=== PATIENT | female | born 1930 | race Caucasian/White ===

== ENCOUNTER 2017-11-17 17:58 | Inpatient (IN) | payer MEDICARE, OTHER ==
[2017-11-17] MEDS ORDERED: Albuterol/Ipratropium 3.0-0.5 MG/3 ML Neb Soln NEB ONE (18:08)
[2017-11-17] MEDS ORDERED: Acetaminophen 325 MG Tab PO ONE (18:08)
--- NOTE | 2017-11-17 18:09 | EDM.PDOC ---
<Valarie De Leon A - Last Filed: 11/17/17 22:45> ED HPI GENERAL MEDICAL PROBLEM - General Chief Complaint: Respiratory Problem Stated Complaint: [facility] Time Seen by Provider: 11/17/17 18:00 - Related Data Allergies Allergy/AdvReac Type Severity Reaction Status Date / Time grass pollen Allergy Not Listed Verified 11/17/17 22:01 mold Allergy Not Listed Verified 11/17/17 22:01 Home Meds: Home Meds Acetaminophen [Tylenol] 325 mg PO ASDIRECTED PRN 11/17/17 [History] Albuterol Sulfate 2.5 mg IH TID 11/17/17 [History] Azithromycin [IJD: Azithromycin] 250 mg PO ASDIRECTED 11/17/17 [History] Calcium Carbonate/Vitamin D3 [Calcium 600 + Vit D Tablet] 1 each PO BID [History] Denosumab [Prolia] 60 mg SUBCUT Q180D 11/17/17 [History] Ferrous Sulfate 325 mg PO DAILY 11/17/17 [History] Fish Oil/[place]-3 Fatty Acids [Fish Oil 1,000 MG] 1 each PO DAILY 11/17/17 [ History] Hydrocortisone [Preparation H] 1 applic TP TID PRN 11/17/17 [History] I-Darnell With Lutein. 1 cap PO DAILY 11/17/17 [History] L.acidop,Vasquez,Lac,Rha/B.lac,Deon [Advanced Probiotic Capsule] 1 cap PO DAILY 11/17 [History] Levothyroxine [Synthroid] 88 mcg PO DAILY 11/17/17 [History] Lidocaine [Anecream] 1 applic TP Q6H PRN 11/17/17 [History] Mineral Oil/Petrolatum,White [Advanced Eye Relief Opth Oint] 1 applic EYEBOTH BEDTIME PRN 11/17/17 [History] Multivitamin with Minerals [Multivitamins with Minerals] 1 each PO DAILY [History] Olopatadine [Patanol 0.1% Ophth Soln] 1 drop EYEBOTH BID PRN 11/17/17 [History] Polyethylene Glycol 3350 [MiraLAX] 17 gm PO DAILY 11/17/17 [History] Primidone 50 mg PO DAILY 11/17/17 [History] Primidone 250 mg PO DAILY 11/17/17 [History] Propylene Glycol/Peg 400 [Systane 0.3-0.4% Eye Drops] 1 drop EYEBOTH TID [History] Sertraline [Zoloft] 25 mg PO DAILY 11/17/17 [History] amLODIPine Besylate [Norvasc] 2.5 mg PO DAILY 11/17/17 [History] guaiFENesin [Mucinex] 600 mg PO BID 11/17/17 [History] Course - Vital Signs Last Recorded V/S: Last Vital Signs Temp 37.3 C 11/18/17 07:29 Pulse 81 11/18/17 12:04 Resp 24 H 11/18/17 12:04 BP 123/60 11/18/17 12:04 Pulse Ox 100 11/18/17 12:04 - Orders/Labs/Meds Orders: Active Orders 24 hr Category Date Time Status Patient Status [ADT] Routine ADT 11/17/17 20:58 Active Antiembolic Devices [RC] BID Care 11/17/17 20:34 Active Height and Weight [RC] 04 Care 11/17/17 20:32 Active Intake and Output [RC] 04,16 Care 11/17/17 20:33 Active Up With Assistance [RC] ASDIRECTED Care 11/17/17 20:32 Active Up ad Camille [RC] ASDIRECTED Care 11/17/17 20:32 Active VTE/DVT Education [RC] DAILY Care 11/17/17 20:32 Active Vital Signs [RC] Q4HR Care 11/17/17 20:32 Active Consult to Case Management [CONS] Routine Cons 11/17/17 20:35 Active Consult to Manager Recruiting [CONS] Routine Cons 11/17/17 20:35 Active Consult to Spiritual Care [CONS] Routine Cons 11/17/17 20:35 Active OT Evaluation and Treatment [CONS] Routine Cons 11/17/17 20:35 Active PT Evaluation and Treatment [CONS] Routine Cons 11/17/17 20:35 Active Respiratory Care Assess and Treatment [CONS] Routine Cons 11/17/17 20:35 Active Chest 1V Frontal [CR] AM Exams 11/19/17 05:11 Ordered BASIC METABOLIC PANEL,BMP [CHEM] AM Lab 11/19/17 05:11 Ordered BASIC METABOLIC PANEL,BMP [CHEM] AM Lab 11/20/17 05:11 Ordered BASIC METABOLIC PANEL,BMP [CHEM] AM Lab 11/21/17 05:11 Ordered C-REACTIVE PROTEIN [CHEM] AM Lab 11/19/17 05:11 Ordered C-REACTIVE PROTEIN [CHEM] AM Lab 11/20/17 05:11 Ordered C-REACTIVE PROTEIN [CHEM] AM Lab 11/21/17 05:11 Ordered CBC WITH AUTO DIFF [HEME] AM Lab 11/19/17 05:11 Ordered CBC WITH AUTO DIFF [HEME] AM Lab 11/20/17 05:11 Ordered CBC WITH AUTO DIFF [HEME] AM Lab 11/21/17 05:11 Ordered MAGNESIUM [CHEM] AM Lab 11/19/17 05:11 Ordered MAGNESIUM [CHEM] AM Lab 11/20/17 05:11 Ordered MAGNESIUM [CHEM] AM Lab 11/21/17 05:11 Ordered Acetaminophen [Tylenol] Med 11/17/17 20:32 Active 650 mg PO Q4H PRN Acetaminophen/HYDROcodone [[place] 325-5 MG] Med 11/17/17 20:32 Active 1 tab PO Q4H PRN Albuterol/Ipratropium [DuoNeb 3.0-0.5 MG/3 ML] Med 11/17/17 20:32 Active 3 ml NEB Q4H PRN Bisacodyl [Dulcolax] Med 11/17/17 20:32 Active 5 mg PO DAILY PRN Calcium Carbonate/Vitamin D3 [Calcium Carbonate/Vitamin Med 11/17/17 21:00 Active D 600 MG-200 Unit] 1 tab PO BID Docusate Sodium [Colace] Med 11/17/17 20:32 Active 100 mg PO BID PRN Docusate Sodium/Sennosides [Senna Plus] Med 11/17/17 20:32 Active 1 tab PO BID PRN Ferrous Sulfate Med 11/18/17 09:00 Active 325 mg PO DAILY Fish Oil/[place]-3 Fatty Acids [Fish Oil] Med 11/18/17 09:00 Active 1 gm PO DAILY Hydrocortisone [Hydrocortisone 1% Crm] Med 11/17/17 20:30 Active 0 gm TOP TID PRN Hypromellose [Isopto Tears 0.5% Ophth Soln] Med 11/17/17 21:00 Active 0 ml EYEBOTH TID LORazepam [Ativan] Med 11/17/17 20:32 Active 0.25 mg IV Q6H PRN LORazepam [Ativan] Med 11/17/17 20:29 Active 2 mg IVPUSH Q4H PRN Lanolin/Min Oil/Petrolatum [Artificial Tears] Med 11/17/17 20:30 Active 0 gm EYEBOTH BEDTIME PRN Levothyroxine [Synthroid] Med 11/18/17 06:00 Active 88 mcg PO ACBRK Lidocaine 4% [LMX 4 Cream with Tegaderm] Med 11/17/17 20:30 Active 1 each TOP Q6H PRN Magnesium Rep Pharmacy to Dose [Pharmacy to Dose - Med 11/17/17 20:30 Active Magnesium Replacement] 0 dose .XX ASDIRECTED PRN Metoprolol Tartrate [Lopressor] Med 11/17/17 20:29 Active 5 mg IVPUSH Q4H PRN Multivitamins,Therapeutic [Thera] Med 11/18/17 09:00 Active 1 each PO DAILY Multivitamins/Min/FA/Lut/Zeax [ICaps MV] Med 11/18/17 09:00 Active 1 tab PO DAILY Ondansetron [Zofran] Med 11/17/17 20:32 Active 4 mg IV Q6H PRN Patient's Own Medication [Ptom] Med 11/17/17 20:30 Active 0 each EYEBOTH BID PRN Polyethylene Glycol 3350 [MiraLAX] Med 11/18/17 09:00 Active 17 gm PO DAILY Potassium Rep Pharmacy to Dose [Pharmacy to Dose - Med 11/17/17 20:30 Active Potassium Replacement] 0 dose .XX ASDIRECTED PRN Primidone [Mysoline] Med 11/18/17 09:00 Active 250 mg PO DAILY Primidone [Mysoline] Med 11/18/17 09:00 Active 50 mg PO DAILY Promethazine [Phenergan] 6.25 mg Med 11/17/17 20:32 Active Sodium Chloride 0.9% [Normal Saline] 50 ml IV Q6H Saccharomyces Boulardii [Florastor] Med 11/18/17 09:00 Active 250 mg PO BID Temazepam [Restoril] Med 11/17/17 20:32 Active 7.5 mg PO BEDTIME PRN amLODIPine [Norvasc] Med 11/18/17 09:00 Active 2.5 mg PO DAILY guaiFENesin [Mucinex] Med 11/18/17 09:00 Active 600 mg PO BID hydrALAZINE [Apresoline] Med 11/17/17 20:29 Active 10 mg IVPUSH Q4H PRN Sequential Compression Device [OM.PC] Per Unit Routine Oth 11/17/17 20:33 Ordered Resuscitation Status Routine Resus Stat 11/17/17 20:32 Ordered Medication Orders Acetaminophen (Tylenol) 650 mg PO Q4H PRN PRN Reason: Pain (Mild 1-3)/fever Hydrocodone Bitart/Acetaminophen ([place] 325-5 Mg) 1 tab PO Q4H PRN PRN Reason: Pain (moderate 4-6) Albuterol/Ipratropium (Duoneb 3.0-0.5 Mg/3 Ml) 3 ml NEB Q4H PRN PRN Reason: Shortness Of Breath/wheezing Amlodipine Besylate (Norvasc) 2.5 mg PO DAILY [facility] Last Admin: 11/18/17 09:36 Dose: 2.5 mg Artificial Tears (Artificial Tears) 0 gm EYEBOTH BEDTIME PRN PRN Reason: Dry Eyes Artificial Tears (Isopto Tears 0.5% Ophth Soln) 0 ml EYEBOTH TID [facility] Last Admin: 11/18/17 19:41 Dose: Admin: 11/18/17 15:24 Dose: 1 drop Admin: 11/18/17 09:36 Dose: 1 drop Bisacodyl (Dulcolax) 5 mg PO DAILY PRN PRN Reason: Constipation Calcium Carbonate (Calcium Carbonate/Vitamin D 600 Mg-200 Unit) 1 tab PO BID [facility] Last Admin: 11/18/17 09:36 Dose: 1 tab Admin: 11/17/17 22:39 Dose: Not Given Docusate Sodium (Colace) 100 mg PO BID PRN PRN Reason: Constipation Ferrous Sulfate (Ferrous Sulfate) 325 mg PO DAILY [facility] Last Admin: 11/18/17 09:36 Dose: 325 mg Fish Oil (Fish Oil) 1 gm PO DAILY [facility] Last Admin: 11/18/17 09:36 Dose: 1 gm Guaifenesin (Mucinex) 600 mg PO BID [facility] Last Admin: 11/18/17 09:37 Dose: 600 mg Guaifenesin/Phenylephrine HCl (Robitussin Dm) 5 ml PO Q4H PRN PRN Reason: Cough Hydralazine HCl (Apresoline) 10 mg IVPUSH Q4H PRN PRN Reason: Hypertension Hydrocortisone (Hydrocortisone 1% Crm) 0 gm TOP TID PRN PRN Reason: Hemorrhoids Hydromorphone HCl (Dilaudid) 0.25 mg IVPUSH Q2H PRN PRN Reason: Pain (severe 7-10) Promethazine HCl 6.25 mg/ (Sodium Chloride) 50.25 mls @ 100 mls/hr IV Q6H PRN PRN Reason: Nausea/Vomiting Sodium Chloride (Normal Saline) 1,000 mls @ 15 mls/hr IV ASDIRECTED [facility] Stop: 11/22/17 16:13 Levothyroxine Sodium (Synthroid) 88 mcg PO ACBRK [facility] Last Admin: 11/18/17 06:01 Dose: 88 mcg Lidocaine HCl (Lmx 4 Cream With Tegaderm) 1 each TOP Q6H PRN PRN Reason: unknown Lorazepam (Ativan) 2 mg IVPUSH Q4H PRN PRN Reason: Seizures Lorazepam (Ativan) 0.25 mg IV Q6H PRN PRN Reason: Anxiety Magnesium Sulfate (Pharmacy To Dose - Magnesium Replacement) 0 dose .XX ASDIRECTED PRN PRN Reason: RX TO WATCH MAG LEVELS Metoprolol Tartrate (Lopressor) 5 mg IVPUSH Q4H PRN PRN Reason: Tachycardia Multivitamins (Thera) 1 each PO DAILY [facility] Last Admin: 11/18/17 09:36 Dose: 1 each Ondansetron HCl (Zofran) 4 mg IV Q6H PRN PRN Reason: Nausea/Vomiting Patanol (Olopatadine () 1% Opth Solution) 0 each EYEBOTH BID PRN PRN Reason: allergy symptoms Polyethylene Glycol (Miralax) 17 gm PO DAILY [facility] Last Admin: 11/18/17 09:36 Dose: 17 gm Potassium Chloride (Pharmacy To Dose - Potassium Replacement) 0 dose .XX ASDIRECTED PRN PRN Reason: RX TO WATCH K LEVELS Primidone (Mysoline) 250 mg PO DAILY [facility] Last Admin: 11/18/17 09:37 Dose: 250 mg Primidone (Mysoline) 50 mg PO DAILY [facility] Last Admin: 11/18/17 09:37 Dose: 50 mg Saccharomyces Boulardii (Florastor) 250 mg PO BID [facility] Last Admin: 11/18/17 09:36 Dose: 250 mg Senna/Docusate Sodium (Senna Plus) 1 tab PO BID PRN PRN Reason: Constipation Sertraline HCl (Zoloft) 25 mg PO BEDTIME [facility] Temazepam (Restoril) 7.5 mg PO BEDTIME PRN PRN Reason: Sleep Vit A/Vit C/Vit E/Selen/Cu/Zn/Lutei (Icaps Mv) 1 tab PO DAILY [facility] Last Admin: 11/18/17 09:36 Dose: 1 tab Labs: Laboratory Tests 11/17/17 11/17/17 11/17/17 Range/Units 18:25 18:25 18:25 WBC 14.87 H (3.98-10.04) K/mm3 RBC 3.32 L (3.98-5.22) M/mm3 Hgb 9.3 L (11.2-15.7) gm/L Hct 29.4 L (34.1-44.9) % MCV 88.6 (79.4-94.8) fl MCH 28.0 (25.6-32.2) pg MCHC 31.6 L (32.2-35.5) g/dl RDW Std Deviation 50.8 H (36.4-46.3) fL Plt Count 473 H (182-369) K/mm3 MPV 9.3 L (9.4-12.3) fl Neutrophils % (Manual) 81 H (40-60) % Band Neutrophils % 2 (0-10) % Lymphocytes % (Manual) 5 L (20-40) % Atypical Lymphs % 1 % Monocytes % (Manual) 11 H (2-10) % Eosinophils % (Manual) 0 L (0.7-5.8) % Basophils % (Manual) 0 L (0.1-1.2) Platelet Estimate Adequate RBC Morph Comment Normal PT 10.7 (8.0-13.0) SECONDS INR 1.00 Sodium 137 (136-145) mEq/L Potassium 4.1 (3.5-5.1) mEq/L Chloride 100 (98-107) mEq/L Carbon Dioxide 30 (21-32) mEq/L Anion Gap 11.1 (5-15) BUN 27 H (7-18) mg/dL Creatinine 0.9 (0.55-1.02) mg/dL Est Cr Clr Drug Dosing 32.13 mL/min Estimated GFR (MDRD) 59 (>60) mL/min BUN/Creatinine Ratio 30.0 H (14-18) Glucose 142 H (83-115) mg/dL Lactic Acid (0.4-2.0) mmol/L Calcium 9.3 (8.5-10.1) mg/dL Magnesium 1.7 L (1.8-2.4) mg/dl Total Bilirubin 0.2 (0.2-1.0) mg/dL AST 37 (15-37) U/L ALT 60 H (14-59) U/L Alkaline Phosphatase 104 (46-116) U/L CK-MB (CK-2) < 0.5 (0-3.6) ng/ml Troponin I < 0.017 (0.00-0.056) ng/mL C-Reactive Protein 17.5 H* (<1.0) mg/dL NT-Pro-B Natriuret Pep (0-450) pg/mL Total Protein 7.3 (6.4-8.2) g/dl Albumin 2.7 L (3.4-5.0) g/dl Globulin 4.6 gm/dL Albumin/Globulin Ratio 0.6 L (1-2) Mycoplasma pneumon IgM (NEGATIVE) MRSA (PCR) 11/17/17 11/17/17 11/17/17 Range/Units 18:25 18:25 18:35 WBC (3.98-10.04) K/mm3 RBC (3.98-5.22) M/mm3 Hgb (11.2-15.7) gm/L Hct (34.1-44.9) % MCV (79.4-94.8) fl MCH (25.6-32.2) pg MCHC (32.2-35.5) g/dl RDW Std Deviation (36.4-46.3) fL Plt Count (182-369) K/mm3 MPV (9.4-12.3) fl Neutrophils % (Manual) (40-60) % Band Neutrophils % (0-10) % Lymphocytes % (Manual) (20-40) % Atypical Lymphs % % Monocytes % (Manual) (2-10) % Eosinophils % (Manual) (0.7-5.8) % Basophils % (Manual) (0.1-1.2) Platelet Estimate RBC Morph Comment PT (8.0-13.0) SECONDS INR Sodium (136-145) mEq/L Potassium (3.5-5.1) mEq/L Chloride (98-107) mEq/L Carbon Dioxide (21-32) mEq/L Anion Gap (5-15) BUN (7-18) mg/dL Creatinine (0.55-1.02) mg/dL Est Cr Clr Drug Dosing mL/min Estimated GFR (MDRD) (>60) mL/min BUN/Creatinine Ratio (14-18) Glucose (83-115) mg/dL Lactic Acid 1.2 (0.4-2.0) mmol/L Calcium (8.5-10.1) mg/dL Magnesium (1.8-2.4) mg/dl Total Bilirubin (0.2-1.0) mg/dL AST (15-37) U/L ALT (14-59) U/L Alkaline Phosphatase (46-116) U/L CK-MB (CK-2) (0-3.6) ng/ml Troponin I (0.00-0.056) ng/mL C-Reactive Protein (<1.0) mg/dL NT-Pro-B Natriuret Pep 533 H (0-450) pg/mL Total Protein (6.4-8.2) g/dl Albumin (3.4-5.0) g/dl Globulin gm/dL Albumin/Globulin Ratio (1-2) Mycoplasma pneumon IgM Negative (NEGATIVE) MRSA (PCR) 11/17/17 Range/Units 19:05 WBC (3.98-10.04) K/mm3 RBC (3.98-5.22) M/mm3 Hgb (11.2-15.7) gm/L Hct (34.1-44.9) % MCV (79.4-94.8) fl MCH (25.6-32.2) pg MCHC (32.2-35.5) g/dl RDW Std Deviation (36.4-46.3) fL Plt Count (182-369) K/mm3 MPV (9.4-12.3) fl Neutrophils % (Manual) (40-60) % Band Neutrophils % (0-10) % Lymphocytes % (Manual) (20-40) % Atypical Lymphs % % Monocytes % (Manual) (2-10) % Eosinophils % (Manual) (0.7-5.8) % Basophils % (Manual) (0.1-1.2) Platelet Estimate RBC Morph Comment PT (8.0-13.0) SECONDS INR Sodium (136-145) mEq/L Potassium (3.5-5.1) mEq/L Chloride (98-107) mEq/L Carbon Dioxide (21-32) mEq/L Anion Gap (5-15) BUN (7-18) mg/dL Creatinine (0.55-1.02) mg/dL Est Cr Clr Drug Dosing mL/min Estimated GFR (MDRD) (>60) mL/min BUN/Creatinine Ratio (14-18) Glucose (83-115) mg/dL Lactic Acid (0.4-2.0) mmol/L Calcium (8.5-10.1) mg/dL Magnesium (1.8-2.4) mg/dl Total Bilirubin (0.2-1.0) mg/dL AST (15-37) U/L ALT (14-59) U/L Alkaline Phosphatase (46-116) U/L CK-MB (CK-2) (0-3.6) ng/ml Troponin I (0.00-0.056) ng/mL C-Reactive Protein (<1.0) mg/dL NT-Pro-B Natriuret Pep (0-450) pg/mL Total Protein (6.4-8.2) g/dl Albumin (3.4-5.0) g/dl Globulin gm/dL Albumin/Globulin Ratio (1-2) Mycoplasma pneumon IgM (NEGATIVE) MRSA (PCR) Negative Meds: Medications Generic Name Dose Route Start Last Admin Trade Name Freq PRN Reason Stop Dose Admin Acetaminophen 650 mg 11/17/17 20:32 Tylenol PO Q4H PRN Pain (Mild 1-3)/fever Hydrocodone Bitart/Acetaminophen 1 tab 11/17/17 20:32 [place] 325-5 Mg PO Q4H PRN Pain (moderate 4-6) Albuterol/Ipratropium 3 ml 11/17/17 20:32 Duoneb 3.0-0.5 Mg/3 Ml NEB Q4H PRN Shortness Of Breath/wheezing Amlodipine Besylate 2.5 mg 11/18/17 09:00 11/18/17 09:36 Norvasc PO 2.5 mg DAILY [facility] Administration Artificial Tears 0 gm 11/17/17 20:30 Artificial Tears EYEBOTH BEDTIME PRN Dry Eyes Artificial Tears 0 ml 11/17/17 21:00 11/18/17 19:41 Isopto Tears 0.5% Ophth Soln EYEBOTH Not Given TID [facility] Bisacodyl 5 mg 11/17/17 20:32 Dulcolax PO DAILY PRN Constipation Calcium Carbonate 1 tab 11/17/17 21:00 11/18/17 09:36 Calcium Carbonate/Vitamin D 600 Mg-200 Unit PO 1 tab BID [facility] Administration Docusate Sodium 100 mg 11/17/17 20:32 Colace PO BID PRN Constipation Ferrous Sulfate 325 mg 11/18/17 09:00 11/18/17 09:36 Ferrous Sulfate PO 325 mg DAILY [facility] Administration Fish Oil 1 gm 11/18/17 09:00 11/18/17 09:36 Fish Oil PO 1 gm DAILY [facility] Administration Guaifenesin 600 mg 11/18/17 09:00 11/18/17 09:37 Mucinex PO 600 mg BID [facility] Administration Guaifenesin/Phenylephrine HCl 5 ml 11/17/17 22:25 Robitussin Dm PO Q4H PRN Cough Hydralazine HCl 10 mg 11/17/17 20:29 Apresoline IVPUSH Q4H PRN Hypertension Hydrocortisone 0 gm 11/17/17 20:30 Hydrocortisone 1% Crm TOP TID PRN Hemorrhoids Hydromorphone HCl 0.25 mg 11/18/17 07:37 Dilaudid IVPUSH Q2H PRN Pain (severe 7-10) Promethazine HCl 6.25 mg/ 50.25 mls @ 100 mls/hr 11/17/17 20:32 Sodium Chloride IV Q6H PRN Nausea/Vomiting Sodium Chloride 1,000 mls @ 15 mls/hr 11/18/17 16:15 Normal Saline IV 11/22/17 16:13 ASDIRECTED [facility] Levothyroxine Sodium 88 mcg 11/18/17 06:00 11/18/17 06:01 Synthroid PO 88 mcg ACBRK [facility] Administration Lidocaine HCl 1 each 11/17/17 20:30 Lmx 4 Cream With Tegaderm TOP Q6H PRN unknown Lorazepam 2 mg 11/17/17 20:29 Ativan IVPUSH Q4H PRN Seizures Lorazepam 0.25 mg 11/17/17 20:32 Ativan IV Q6H PRN Anxiety Magnesium Sulfate 0 dose 11/17/17 20:30 Pharmacy To Dose - Magnesium Replacement .XX ASDIRECTED PRN RX TO WATCH MAG LEVELS Metoprolol Tartrate 5 mg 11/17/17 20:29 Lopressor IVPUSH Q4H PRN Tachycardia Multivitamins 1 each 11/18/17 09:00 11/18/17 09:36 Thera PO 1 each DAILY [facility] Administration Ondansetron HCl 4 mg 11/17/17 20:32 Zofran IV Q6H PRN Nausea/Vomiting Patanol (Olopatadine 0 each 11/17/17 20:30 ) 1% Opth Solution EYEBOTH BID PRN allergy symptoms Polyethylene Glycol 17 gm 11/18/17 09:00 11/18/17 09:36 Miralax PO 17 gm DAILY [facility] Administration Potassium Chloride 0 dose 11/17/17 20:30 Pharmacy To Dose - Potassium Replacement .XX ASDIRECTED PRN RX TO WATCH K LEVELS Primidone 250 mg 11/18/17 09:00 11/18/17 09:37 Mysoline PO 250 mg DAILY [facility] Administration Primidone 50 mg 11/18/17 09:00 11/18/17 09:37 Mysoline PO 50 mg DAILY [facility] Administration Saccharomyces Boulardii 250 mg 11/18/17 09:00 11/18/17 09:36 Florastor PO 250 mg BID [facility] Administration Senna/Docusate Sodium 1 tab 11/17/17 20:32 Senna Plus PO BID PRN Constipation Sertraline HCl 25 mg 11/18/17 21:00 Zoloft PO BEDTIME [facility] Temazepam 7.5 mg 11/17/17 20:32 Restoril PO BEDTIME PRN Sleep Vit A/Vit C/Vit E/Selen/Cu/Zn/Lutei 1 tab 11/18/17 09:00 11/18/17 09:36 Icaps Mv PO 1 tab DAILY [facility] Administration Discontinued Medications Generic Name Dose Route Start Last Admin Trade Name Freq PRN Reason Stop Dose Admin Acetaminophen 650 mg 11/17/17 18:08 11/17/17 18:40 Tylenol PO 11/17/17 18:09 650 mg NOW ONE Administration Acetaminophen 325 mg 11/17/17 20:45 Tylenol PO ASDIRECTED PRN Pain Albuterol/Ipratropium 3 ml 11/17/17 18:08 11/17/17 18:16 Duoneb 3.0-0.5 Mg/3 Ml NEB 11/17/17 18:09 3 ml ONETIME ONE Administration Denosumab 60 mg 11/17/17 20:30 11/18/17 19:43 Prolia SUBCUT Not Given Q180D [facility] Hydromorphone HCl 0.25 mg 11/17/17 20:32 Dilaudid IVPUSH Q2H PRN Pain (severe 7-10) Sodium Chloride 1,000 mls @ 50 mls/hr 11/17/17 18:15 11/18/17 16:14 Normal Saline IV 15 mls/hr ASDIRECTED [facility] Infusion Levofloxacin/Dextrose 750 mg/ 150 mls @ 100 mls/hr 11/17/17 18:41 11/17/17 18 :56 Premix IV 11/17/17 20:10 100 mls/hr ONETIME ONE Administration Magnesium Sulfate 2 gm/ Premix 50 mls @ 25 mls/hr 11/17/17 19:29 11/17/17 19: 42 IV 11/17/17 21:28 25 mls/hr ONETIME ONE Administration Azithromycin 500 mg/ Sodium 250 mls @ 250 mls/hr 11/18/17 09:00 Chloride IV Q24H [facility] Ceftriaxone Sodium 1 gm/ 100 mls @ 200 mls/hr 11/18/17 09:00 Sodium Chloride IV Q24H [facility] Magnesium Sulfate 2 gm/ Premix 50 mls @ 50 mls/hr 11/17/17 21:30 11/17/17 21: 53 IV 11/17/17 22:29 Not Given ONETIME ONE Azithromycin 500 mg/ Sodium 250 mls @ 250 mls/hr 11/17/17 21:45 Chloride IV ASDIRECTED [facility] Iopamidol 100 ml 11/18/17 08:42 11/18/17 09:16 Isovue-300 (61%) IVPUSH 11/18/17 08:43 60 ml ONETIME ONE Administration Non-Formulary Medication 1,125 each 11/17/17 21:45 Nf Drug PO ASDIRECTED [facility] Rifampin 600 mg 11/19/17 09:00 Rifampin PO [id number] [facility] Rifampin 600 mg 11/17/17 22:00 11/17/17 22:55 Rifampin PO 11/17/17 22:01 Not Given ONETIME ONE Saccharomyces Boulardii 500 mg 11/18/17 09:00 Florastor PO DAILY [facility] Sertraline HCl 25 mg 11/18/17 09:00 11/18/17 09:34 Zoloft PO Not Given DAILY [facility] Sodium Chloride 10 ml 11/18/17 08:42 11/18/17 09:17 Saline Flush FLUSH 11/18/17 16:00 10 ml ONETIME PRN Administration IV FLUSH - Re-Assessments/Exams Free Text/Narrative Re-Assessment/Exam: 11/17/17 19:35 Labs show elevated CRP and elevated WBC. Labs otherwise normal. Discussed with Dr. Macias who agrees to admit the patient. Departure - Departure Time of Disposition: 20:00 Disposition: Admitted As Inpatient 67 Clinical Impression: Pneumonia, Hypoxia <Socrates Shankar - Last Filed: 11/18/17 19:46> ED HPI GENERAL MEDICAL PROBLEM - General Source of Information: Reports: Patient, EMS, EMS Notes Reviewed, Retirement Records History Limitations: Reports: Respiratory Distress, Other (ahrsh productive cough. ) - History of Present Illness INITIAL COMMENTS - FREE TEXT/NARRATIVE: 87-year-old female presents to the ED per ambulance from [facility] where she resides. Rarely was noted by staff that she was not doing well at the dining room table tonight. Productive sounding cough and noted to have central cyanosis. O2 sat check was 89% on room air. Emesis was therefore summoned. She was placed on oxygen at 4 L/m by nasal specks. This improved her sats to 97%. Patient reports she's had a cough for years. Therefore it is not real useful as to when she may have gotten worse. She does feel warm to palpation her rectal temperature was 102.7. She has a very congested sounding cough suggestive of pneumonia. Sputum expressed in the ED was platt-yellow in color without blood. Onset: Unknown/Unsure Onset Date: 11/17/17 Onset Time: 17:00 Duration: Day(s): Location: Reports: Chest (Productive sounding cough) Severity: Moderate Improves with: Reports: None Worsens with: Reports: Other Context: Denies: Activity, Exercise (Coughing makes her worse), Lifting, Sick Contact, Trauma, Other Associated Symptoms: Reports: Cough, cough w sputum, Fever/Chills, Loss of Appetite, Malaise, Shortness of Breath, Weakness. Denies: No Other Symptoms, Confusion, Chest Pain, Diaphoresis, Headaches (Currently 102.3 rectally.), Nausea/Vomiting, Rash, Seizure, Syncope Treatments ASSISTANT CENTER DIRECTOR: Reports: Other (see below) (None as far as I can ascertain) Past Medical History Respiratory History: Reports: Bronchitis, Recurrent (Chronic bronchiectasis. 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 Denies: Wheezing, Pleuritic Chest Pain, Hemoptysis Cardiovascular: Reports: Blood Pressure Problem, Dyspnea on Exertion. Denies: Chest Pain, Claudication, Edema, Lightheadedness, Orthopnea (Controlled with medication) Endocrine: Reports: Fatigue GI/Abdominal: Reports: Decreased Appetite Musculoskeletal: Reports: No Symptoms Skin: Reports: Other ([facility] Neurological: Reports: Confusion. Denies: Dizziness, Headache (Transient confusion.), Numbness, Pre-Existing Deficit, Seizure, Syncope, Tingling, Gait Disturbance Psychiatric: Reports: No Symptoms Hematologic/Lymphatic: Reports: No Symptoms Immunologic: Reports: No Symptoms ED EXAM, GENERAL - Physical Exam Exam: See Below Exam Limited By: Respiratory Distress (She is very congested productive sounding cough with thick sputum in her throat and mouth that required immediate suctioning. This improved her sats were able to reduce her oxygen to 2 L/m by nasal cannula.) General Appearance: Alert, Moderate Distress Eye Exam: Bilateral Eye: Normal Inspection (Previous bilateral cataract extractions and intraocular lens implants.) Ears: Normal TMs Throat/Mouth: Normal Inspection, Other Head: Atraumatic (She did cough up thick sputum while being examined.), Normocephalic Neck: Normal Inspection, Supple, Non-Tender, Full Range of Motion. No: Lymphadenopathy (L), Lymphadenopathy (R) Respiratory/Chest: Respiratory Distress (Tachypnea at rest with hypoxemia.), Rhonchi (Rhonchi throughout all lung olivera. She sounded almost like she was drowning. Sputum is thick and platt-yellow in color without blood.). No: Wheezing Cardiovascular: Regular Rate, Rhythm, No Edema, No Gallop, No Murmur, No Rub. No: Normal Peripheral Pulses Peripheral Pulses: 1+: Radial (L), Radial (R), Posterior Tibial (L), Posterior Tibial (R), Dorsalis Pedis (L), Dorsalis Pedis (R) GI/Abdominal: Normal Bowel Sounds, Soft, Non-Tender, No Organomegaly, Distended (Slightly distended in the epigastrium and 2 been age percussion compatible with aerophagia.) Back Exam: Normal Inspection, Other (Mild kyphosis thoracic spine). No: CVA Tenderness (L), CVA Tenderness (R) Extremities: Normal Inspection, Normal Range of Motion, Non-Tender, No Pedal Edema Neurological: Alert, Oriented, CN II-XII Intact, Normal Cognition Skin Exam: Warm, Dry, Intact, Normal Color, No Rash EKG INTERPRETATION EKG Date: 11/17/17 Time: 18:15 Rhythm: NSR Rate (Beats/Min): 97 Essie: LAD-Left Essie Deviation (-34 consider left anterior fascicular block pattern) P-Wave: Enlarged (Suspect left atrial hypertrophy) QRS: Other (Early R-wave transition. This suggests septal hypertrophy pattern) ST-T: Other (Diffuse early repolarization pattern with symmetrical T waves V2 to V5.) QT: Normal EKG Interpretation Comments: Borderline ECG Course - Vital Signs Last Recorded V/S: Last Vital Signs Temp 37.3 C 11/18/17 07:29 Pulse 81 11/18/17 12:04 Resp 24 H 11/18/17 12:04 BP 123/60 11/18/17 12:04 Pulse Ox 100 11/18/17 12:04 - Orders/Labs/Meds Orders: Active Orders 24 hr Category Date Time Status Patient Status [ADT] Routine ADT 11/17/17 20:58 Active Antiembolic Devices [RC] BID Care 11/17/17 20:34 Active Height and Weight [RC] 04 Care 11/17/17 20:32 Active Intake and Output [RC] 04,16 Care 11/17/17 20:33 Active Up With Assistance [RC] ASDIRECTED Care 11/17/17 20:32 Active Up ad Camille [RC] ASDIRECTED Care 11/17/17 20:32 Active VTE/DVT Education [RC] DAILY Care 11/17/17 20:32 Active Vital Signs [RC] Q4HR Care 11/17/17 20:32 Active Consult to Case Management [CONS] Routine Cons 11/17/17 20:35 Active Consult to Manager Recruiting [CONS] Routine Cons 11/17/17 20:35 Active Consult to Spiritual Care [CONS] Routine Cons 11/17/17 20:35 Active OT Evaluation and Treatment [CONS] Routine Cons 11/17/17 20:35 Active PT Evaluation and Treatment [CONS] Routine Cons 11/17/17 20:35 Active Respiratory Care Assess and Treatment [CONS] Routine Cons 11/17/17 20:35 Active Chest 1V Frontal [CR] AM Exams 11/19/17 05:11 Ordered BASIC METABOLIC PANEL,BMP [CHEM] AM Lab 11/19/17 05:11 Ordered BASIC METABOLIC PANEL,BMP [CHEM] AM Lab 11/20/17 05:11 Ordered BASIC METABOLIC PANEL,BMP [CHEM] AM Lab 11/21/17 05:11 Ordered C-REACTIVE PROTEIN [CHEM] AM Lab 11/19/17 05:11 Ordered C-REACTIVE PROTEIN [CHEM] AM Lab 11/20/17 05:11 Ordered C-REACTIVE PROTEIN [CHEM] AM Lab 11/21/17 05:11 Ordered CBC WITH AUTO DIFF [HEME] AM Lab 11/19/17 05:11 Ordered CBC WITH AUTO DIFF [HEME] AM Lab 11/20/17 05:11 Ordered CBC WITH AUTO DIFF [HEME] AM Lab 11/21/17 05:11 Ordered MAGNESIUM [CHEM] AM Lab 11/19/17 05:11 Ordered MAGNESIUM [CHEM] AM Lab 11/20/17 05:11 Ordered MAGNESIUM [CHEM] AM Lab 11/21/17 05:11 Ordered Acetaminophen [Tylenol] Med 11/17/17 20:32 Active 650 mg PO Q4H PRN Acetaminophen/HYDROcodone [[place] 325-5 MG] Med 11/17/17 20:32 Active 1 tab PO Q4H PRN Albuterol/Ipratropium [DuoNeb 3.0-0.5 MG/3 ML] Med 11/17/17 20:32 Active 3 ml NEB Q4H PRN Bisacodyl [Dulcolax] Med 11/17/17 20:32 Active 5 mg PO DAILY PRN Calcium Carbonate/Vitamin D3 [Calcium Carbonate/Vitamin Med 11/17/17 21:00 Active D 600 MG-200 Unit] 1 tab PO BID Docusate Sodium [Colace] Med 11/17/17 20:32 Active 100 mg PO BID PRN Docusate Sodium/Sennosides [Senna Plus] Med 11/17/17 20:32 Active 1 tab PO BID PRN Ferrous Sulfate Med 11/18/17 09:00 Active 325 mg PO DAILY Fish Oil/[place]-3 Fatty Acids [Fish Oil] Med 11/18/17 09:00 Active 1 gm PO DAILY Hydrocortisone [Hydrocortisone 1% Crm] Med 11/17/17 20:30 Active 0 gm TOP TID PRN Hypromellose [Isopto Tears 0.5% Ophth Soln] Med 11/17/17 21:00 Active 0 ml EYEBOTH TID LORazepam [Ativan] Med 11/17/17 20:32 Active 0.25 mg IV Q6H PRN LORazepam [Ativan] Med 11/17/17 20:29 Active 2 mg IVPUSH Q4H PRN Lanolin/Min Oil/Petrolatum [Artificial Tears] Med 11/17/17 20:30 Active 0 gm EYEBOTH BEDTIME PRN Levothyroxine [Synthroid] Med 11/18/17 06:00 Active 88 mcg PO ACBRK Lidocaine 4% [LMX 4 Cream with Tegaderm] Med 11/17/17 20:30 Active 1 each TOP Q6H PRN Magnesium Rep Pharmacy to Dose [Pharmacy to Dose - Med 11/17/17 20:30 Active Magnesium Replacement] 0 dose .XX ASDIRECTED PRN Metoprolol Tartrate [Lopressor] Med 11/17/17 20:29 Active 5 mg IVPUSH Q4H PRN Multivitamins,Therapeutic [Thera] Med 11/18/17 09:00 Active 1 each PO DAILY Multivitamins/Min/FA/Lut/Zeax [ICaps MV] Med 11/18/17 09:00 Active 1 tab PO DAILY Ondansetron [Zofran] Med 11/17/17 20:32 Active 4 mg IV Q6H PRN Patient's Own Medication [Ptom] Med 11/17/17 20:30 Active 0 each EYEBOTH BID PRN Polyethylene Glycol 3350 [MiraLAX] Med 11/18/17 09:00 Active 17 gm PO DAILY Potassium Rep Pharmacy to Dose [Pharmacy to Dose - Med 11/17/17 20:30 Active Potassium Replacement] 0 dose .XX ASDIRECTED PRN Primidone [Mysoline] Med 11/18/17 09:00 Active 250 mg PO DAILY Primidone [Mysoline] Med 11/18/17 09:00 Active 50 mg PO DAILY Promethazine [Phenergan] 6.25 mg Med 11/17/17 20:32 Active Sodium Chloride 0.9% [Normal Saline] 50 ml IV Q6H Saccharomyces Boulardii [Florastor] Med 11/18/17 09:00 Active 250 mg PO BID Temazepam [Restoril] Med 11/17/17 20:32 Active 7.5 mg PO BEDTIME PRN amLODIPine [Norvasc] Med 11/18/17 09:00 Active 2.5 mg PO DAILY guaiFENesin [Mucinex] Med 11/18/17 09:00 Active 600 mg PO BID hydrALAZINE [Apresoline] Med 11/17/17 20:29 Active 10 mg IVPUSH Q4H PRN Sequential Compression Device [OM.PC] Per Unit Routine Oth 11/17/17 20:33 Ordered Resuscitation Status Routine Resus Stat 11/17/17 20:32 Ordered Medication Orders Acetaminophen (Tylenol) 650 mg PO Q4H PRN PRN Reason: Pain (Mild 1-3)/fever Hydrocodone Bitart/Acetaminophen ([place] 325-5 Mg) 1 tab PO Q4H PRN PRN Reason: Pain (moderate 4-6) Albuterol/Ipratropium (Duoneb 3.0-0.5 Mg/3 Ml) 3 ml NEB Q4H PRN PRN Reason: Shortness Of Breath/wheezing Amlodipine Besylate (Norvasc) 2.5 mg PO DAILY [facility] Last Admin: 11/18/17 09:36 Dose: 2.5 mg Artificial Tears (Artificial Tears) 0 gm EYEBOTH BEDTIME PRN PRN Reason: Dry Eyes Artificial Tears (Isopto Tears 0.5% Ophth Soln) 0 ml EYEBOTH TID [facility] Last Admin: 11/18/17 19:41 Dose: Admin: 11/18/17 15:24 Dose: 1 drop Admin: 11/18/17 09:36 Dose: 1 drop Bisacodyl (Dulcolax) 5 mg PO DAILY PRN PRN Reason: Constipation Calcium Carbonate (Calcium Carbonate/Vitamin D 600 Mg-200 Unit) 1 tab PO BID [facility] Last Admin: 11/18/17 09:36 Dose: 1 tab Admin: 11/17/17 22:39 Dose: Not Given Docusate Sodium (Colace) 100 mg PO BID PRN PRN Reason: Constipation Ferrous Sulfate (Ferrous Sulfate) 325 mg PO DAILY [facility] Last Admin: 11/18/17 09:36 Dose: 325 mg Fish Oil (Fish Oil) 1 gm PO DAILY [facility] Last Admin: 11/18/17 09:36 Dose: 1 gm Guaifenesin (Mucinex) 600 mg PO BID [facility] Last Admin: 11/18/17 09:37 Dose: 600 mg Guaifenesin/Phenylephrine HCl (Robitussin Dm) 5 ml PO Q4H PRN PRN Reason: Cough Hydralazine HCl (Apresoline) 10 mg IVPUSH Q4H PRN PRN Reason: Hypertension Hydrocortisone (Hydrocortisone 1% Crm) 0 gm TOP TID PRN PRN Reason: Hemorrhoids Hydromorphone HCl (Dilaudid) 0.25 mg IVPUSH Q2H PRN PRN Reason: Pain (severe 7-10) Promethazine HCl 6.25 mg/ (Sodium Chloride) 50.25 mls @ 100 mls/hr IV Q6H PRN PRN Reason: Nausea/Vomiting Sodium Chloride (Normal Saline) 1,000 mls @ 15 mls/hr IV ASDIRECTED [facility] Stop: 11/22/17 16:13 Levothyroxine Sodium (Synthroid) 88 mcg PO ACBRK [facility] Last Admin: 11/18/17 06:01 Dose: 88 mcg Lidocaine HCl (Lmx 4 Cream With Tegaderm) 1 each TOP Q6H PRN PRN Reason: unknown Lorazepam (Ativan) 2 mg IVPUSH Q4H PRN PRN Reason: Seizures Lorazepam (Ativan) 0.25 mg IV Q6H PRN PRN Reason: Anxiety Magnesium Sulfate (Pharmacy To Dose - Magnesium Replacement) 0 dose .XX ASDIRECTED PRN PRN Reason: RX TO WATCH MAG LEVELS Metoprolol Tartrate (Lopressor) 5 mg IVPUSH Q4H PRN PRN Reason: Tachycardia Multivitamins (Thera) 1 each PO DAILY [facility] Last Admin: 11/18/17 09:36 Dose: 1 each Ondansetron HCl (Zofran) 4 mg IV Q6H PRN PRN Reason: Nausea/Vomiting Patanol (Olopatadine () 1% Opth Solution) 0 each EYEBOTH BID PRN PRN Reason: allergy symptoms Polyethylene Glycol (Miralax) 17 gm PO DAILY [facility] Last Admin: 11/18/17 09:36 Dose: 17 gm Potassium Chloride (Pharmacy To Dose - Potassium Replacement) 0 dose .XX ASDIRECTED PRN PRN Reason: RX TO WATCH K LEVELS Primidone (Mysoline) 250 mg PO DAILY [facility] Last Admin: 11/18/17 09:37 Dose: 250 mg Primidone (Mysoline) 50 mg PO DAILY [facility] Last Admin: 11/18/17 09:37 Dose: 50 mg Saccharomyces Boulardii (Florastor) 250 mg PO BID [facility] Last Admin: 11/18/17 09:36 Dose: 250 mg Senna/Docusate Sodium (Senna Plus) 1 tab PO BID PRN PRN Reason: Constipation Sertraline HCl (Zoloft) 25 mg PO BEDTIME [facility] Temazepam (Restoril) 7.5 mg PO BEDTIME PRN PRN Reason: Sleep Vit A/Vit C/Vit E/Selen/Cu/Zn/Lutei (Icaps Mv) 1 tab PO DAILY [facility] Last Admin: 11/18/17 09:36 Dose: 1 tab Labs: Laboratory Tests 11/17/17 11/17/17 11/17/17 Range/Units 18:25 18:25 18:25 WBC 14.87 H (3.98-10.04) K/mm3 RBC 3.32 L (3.98-5.22) M/mm3 Hgb 9.3 L (11.2-15.7) gm/L Hct 29.4 L (34.1-44.9) % MCV 88.6 (79.4-94.8) fl MCH 28.0 (25.6-32.2) pg MCHC 31.6 L (32.2-35.5) g/dl RDW Std Deviation 50.8 H (36.4-46.3) fL Plt Count 473 H (182-369) K/mm3 MPV 9.3 L (9.4-12.3) fl Neutrophils % (Manual) 81 H (40-60) % Band Neutrophils % 2 (0-10) % Lymphocytes % (Manual) 5 L (20-40) % Atypical Lymphs % 1 % Monocytes % (Manual) 11 H (2-10) % Eosinophils % (Manual) 0 L (0.7-5.8) % Basophils % (Manual) 0 L (0.1-1.2) Platelet Estimate Adequate RBC Morph Comment Normal PT 10.7 (8.0-13.0) SECONDS INR 1.00 Sodium 137 (136-145) mEq/L Potassium 4.1 (3.5-5.1) mEq/L Chloride 100 (98-107) mEq/L Carbon Dioxide 30 (21-32) mEq/L Anion Gap 11.1 (5-15) BUN 27 H (7-18) mg/dL Creatinine 0.9 (0.55-1.02) mg/dL Est Cr Clr Drug Dosing 32.13 mL/min Estimated GFR (MDRD) 59 (>60) mL/min BUN/Creatinine Ratio 30.0 H (14-18) Glucose 142 H (83-115) mg/dL Lactic Acid (0.4-2.0) mmol/L Calcium 9.3 (8.5-10.1) mg/dL Magnesium 1.7 L (1.8-2.4) mg/dl Total Bilirubin 0.2 (0.2-1.0) mg/dL AST 37 (15-37) U/L ALT 60 H (14-59) U/L Alkaline Phosphatase 104 (46-116) U/L CK-MB (CK-2) < 0.5 (0-3.6) ng/ml Troponin I < 0.017 (0.00-0.056) ng/mL C-Reactive Protein 17.5 H* (<1.0) mg/dL NT-Pro-B Natriuret Pep (0-450) pg/mL Total Protein 7.3 (6.4-8.2) g/dl Albumin 2.7 L (3.4-5.0) g/dl Globulin 4.6 gm/dL Albumin/Globulin Ratio 0.6 L (1-2) Mycoplasma pneumon IgM (NEGATIVE) MRSA (PCR) 11/17/17 11/17/17 11/17/17 Range/Units 18:25 18:25 18:35 WBC (3.98-10.04) K/mm3 RBC (3.98-5.22) M/mm3 Hgb (11.2-15.7) gm/L Hct (34.1-44.9) % MCV (79.4-94.8) fl MCH (25.6-32.2) pg MCHC (32.2-35.5) g/dl RDW Std Deviation (36.4-46.3) fL Plt Count (182-369) K/mm3 MPV (9.4-12.3) fl Neutrophils % (Manual) (40-60) % Band Neutrophils % (0-10) % Lymphocytes % (Manual) (20-40) % Atypical Lymphs % % Monocytes % (Manual) (2-10) % Eosinophils % (Manual) (0.7-5.8) % Basophils % (Manual) (0.1-1.2) Platelet Estimate RBC Morph Comment PT (8.0-13.0) SECONDS INR Sodium (136-145) mEq/L Potassium (3.5-5.1) mEq/L Chloride (98-107) mEq/L Carbon Dioxide (21-32) mEq/L Anion Gap (5-15) BUN (7-18) mg/dL Creatinine (0.55-1.02) mg/dL Est Cr Clr Drug Dosing mL/min Estimated GFR (MDRD) (>60) mL/min BUN/Creatinine Ratio (14-18) Glucose (83-115) mg/dL Lactic Acid 1.2 (0.4-2.0) mmol/L Calcium (8.5-10.1) mg/dL Magnesium (1.8-2.4) mg/dl Total Bilirubin (0.2-1.0) mg/dL AST (15-37) U/L ALT (14-59) U/L Alkaline Phosphatase (46-116) U/L CK-MB (CK-2) (0-3.6) ng/ml Troponin I (0.00-0.056) ng/mL C-Reactive Protein (<1.0) mg/dL NT-Pro-B Natriuret Pep 533 H (0-450) pg/mL Total Protein (6.4-8.2) g/dl Albumin (3.4-5.0) g/dl Globulin gm/dL Albumin/Globulin Ratio (1-2) Mycoplasma pneumon IgM Negative (NEGATIVE) MRSA (PCR) 11/17/17 Range/Units 19:05 WBC (3.98-10.04) K/mm3 RBC (3.98-5.22) M/mm3 Hgb (11.2-15.7) gm/L Hct (34.1-44.9) % MCV (79.4-94.8) fl MCH (25.6-32.2) pg MCHC (32.2-35.5) g/dl RDW Std Deviation (36.4-46.3) fL Plt Count (182-369) K/mm3 MPV (9.4-12.3) fl Neutrophils % (Manual) (40-60) % Band Neutrophils % (0-10) % Lymphocytes % (Manual) (20-40) % Atypical Lymphs % % Monocytes % (Manual) (2-10) % Eosinophils % (Manual) (0.7-5.8) % Basophils % (Manual) (0.1-1.2) Platelet Estimate RBC Morph Comment PT (8.0-13.0) SECONDS INR Sodium (136-145) mEq/L Potassium (3.5-5.1) mEq/L Chloride (98-107) mEq/L Carbon Dioxide (21-32) mEq/L Anion Gap (5-15) BUN (7-18) mg/dL Creatinine (0.55-1.02) mg/dL Est Cr Clr Drug Dosing mL/min Estimated GFR (MDRD) (>60) mL/min BUN/Creatinine Ratio (14-18) Glucose (83-115) mg/dL Lactic Acid (0.4-2.0) mmol/L Calcium (8.5-10.1) mg/dL Magnesium (1.8-2.4) mg/dl Total Bilirubin (0.2-1.0) mg/dL AST (15-37) U/L ALT (14-59) U/L Alkaline Phosphatase (46-116) U/L CK-MB (CK-2) (0-3.6) ng/ml Troponin I (0.00-0.056) ng/mL C-Reactive Protein (<1.0) mg/dL NT-Pro-B Natriuret Pep (0-450) pg/mL Total Protein (6.4-8.2) g/dl Albumin (3.4-5.0) g/dl Globulin gm/dL Albumin/Globulin Ratio (1-2) Mycoplasma pneumon IgM (NEGATIVE) MRSA (PCR) Negative Meds: Medications Generic Name Dose Route Start Last Admin Trade Name Freq PRN Reason Stop Dose Admin Acetaminophen 650 mg 11/17/17 20:32 Tylenol PO Q4H PRN Pain (Mild 1-3)/fever Hydrocodone Bitart/Acetaminophen 1 tab 11/17/17 20:32 [place] 325-5 Mg PO Q4H PRN Pain (moderate 4-6) Albuterol/Ipratropium 3 ml 11/17/17 20:32 Duoneb 3.0-0.5 Mg/3 Ml NEB Q4H PRN Shortness Of Breath/wheezing Amlodipine Besylate 2.5 mg 11/18/17 09:00 11/18/17 09:36 Norvasc PO 2.5 mg DAILY [facility] Administration Artificial Tears 0 gm 11/17/17 20:30 Artificial Tears EYEBOTH BEDTIME PRN Dry Eyes Artificial Tears 0 ml 11/17/17 21:00 11/18/17 19:41 Isopto Tears 0.5% Ophth Soln EYEBOTH Not Given TID [facility] Bisacodyl 5 mg 11/17/17 20:32 Dulcolax PO DAILY PRN Constipation Calcium Carbonate 1 tab 11/17/17 21:00 11/18/17 09:36 Calcium Carbonate/Vitamin D 600 Mg-200 Unit PO 1 tab BID [facility] Administration Docusate Sodium 100 mg 11/17/17 20:32 Colace PO BID PRN Constipation Ferrous Sulfate 325 mg 11/18/17 09:00 11/18/17 09:36 Ferrous Sulfate PO 325 mg DAILY [facility] Administration Fish Oil 1 gm 11/18/17 09:00 11/18/17 09:36 Fish Oil PO 1 gm DAILY [facility] Administration Guaifenesin 600 mg 11/18/17 09:00 11/18/17 09:37 Mucinex PO 600 mg BID [facility] Administration Guaifenesin/Phenylephrine HCl 5 ml 11/17/17 22:25 Robitussin Dm PO Q4H PRN Cough Hydralazine HCl 10 mg 11/17/17 20:29 Apresoline IVPUSH Q4H PRN Hypertension Hydrocortisone 0 gm 11/17/17 20:30 Hydrocortisone 1% Crm TOP TID PRN Hemorrhoids Hydromorphone HCl 0.25 mg 11/18/17 07:37 Dilaudid IVPUSH Q2H PRN Pain (severe 7-10) Promethazine HCl 6.25 mg/ 50.25 mls @ 100 mls/hr 11/17/17 20:32 Sodium Chloride IV Q6H PRN Nausea/Vomiting Sodium Chloride 1,000 mls @ 15 mls/hr 11/18/17 16:15 Normal Saline IV 11/22/17 16:13 ASDIRECTED [facility] Levothyroxine Sodium 88 mcg 11/18/17 06:00 11/18/17 06:01 Synthroid PO 88 mcg ACBRK [facility] Administration Lidocaine HCl 1 each 11/17/17 20:30 Lmx 4 Cream With Tegaderm TOP Q6H PRN unknown Lorazepam 2 mg 11/17/17 20:29 Ativan IVPUSH Q4H PRN Seizures Lorazepam 0.25 mg 11/17/17 20:32 Ativan IV Q6H PRN Anxiety Magnesium Sulfate 0 dose 11/17/17 20:30 Pharmacy To Dose - Magnesium Replacement .XX ASDIRECTED PRN RX TO WATCH MAG LEVELS Metoprolol Tartrate 5 mg 11/17/17 20:29 Lopressor IVPUSH Q4H PRN Tachycardia Multivitamins 1 each 11/18/17 09:00 11/18/17 09:36 Thera PO 1 each DAILY [facility] Administration Ondansetron HCl 4 mg 11/17/17 20:32 Zofran IV Q6H PRN Nausea/Vomiting Patanol (Olopatadine 0 each 11/17/17 20:30 ) 1% Opth Solution EYEBOTH BID PRN allergy symptoms Polyethylene Glycol 17 gm 11/18/17 09:00 11/18/17 09:36 Miralax PO 17 gm DAILY [facility] Administration Potassium Chloride 0 dose 11/17/17 20:30 Pharmacy To Dose - Potassium Replacement .XX ASDIRECTED PRN RX TO WATCH K LEVELS Primidone 250 mg 11/18/17 09:00 11/18/17 09:37 Mysoline PO 250 mg DAILY [facility] Administration Primidone 50 mg 11/18/17 09:00 11/18/17 09:37 Mysoline PO 50 mg DAILY [facility] Administration Saccharomyces Boulardii 250 mg 11/18/17 09:00 11/18/17 09:36 Florastor PO 250 mg BID [facility] Administration Senna/Docusate Sodium 1 tab 11/17/17 20:32 Senna Plus PO BID PRN Constipation Sertraline HCl 25 mg 11/18/17 21:00 Zoloft PO BEDTIME [facility] Temazepam 7.5 mg 11/17/17 20:32 Restoril PO BEDTIME PRN Sleep Vit A/Vit C/Vit E/Selen/Cu/Zn/Lutei 1 tab 11/18/17 09:00 11/18/17 09:36 Icaps Mv PO 1 tab DAILY [facility] Administration Discontinued Medications Generic Name Dose Route Start Last Admin Trade Name Freq PRN Reason Stop Dose Admin Acetaminophen 650 mg 11/17/17 18:08 11/17/17 18:40 Tylenol PO 11/17/17 18:09 650 mg NOW ONE Administration Acetaminophen 325 mg 11/17/17 20:45 Tylenol PO ASDIRECTED PRN Pain Albuterol/Ipratropium 3 ml 11/17/17 18:08 11/17/17 18:16 Duoneb 3.0-0.5 Mg/3 Ml NEB 11/17/17 18:09 3 ml ONETIME ONE Administration Denosumab 60 mg 11/17/17 20:30 11/18/17 19:43 Prolia SUBCUT Not Given Q180D [facility] Hydromorphone HCl 0.25 mg 11/17/17 20:32 Dilaudid IVPUSH Q2H PRN Pain (severe 7-10) Sodium Chloride 1,000 mls @ 50 mls/hr 11/17/17 18:15 11/18/17 16:14 Normal Saline IV 15 mls/hr ASDIRECTED [facility] Infusion Levofloxacin/Dextrose 750 mg/ 150 mls @ 100 mls/hr 11/17/17 18:41 11/17/17 18 :56 Premix IV 11/17/17 20:10 100 mls/hr ONETIME ONE Administration Magnesium Sulfate 2 gm/ Premix 50 mls @ 25 mls/hr 11/17/17 19:29 11/17/17 19: 42 IV 11/17/17 21:28 25 mls/hr ONETIME ONE Administration Azithromycin 500 mg/ Sodium 250 mls @ 250 mls/hr 11/18/17 09:00 Chloride IV Q24H [facility] Ceftriaxone Sodium 1 gm/ 100 mls @ 200 mls/hr 11/18/17 09:00 Sodium Chloride IV Q24H [facility] Magnesium Sulfate 2 gm/ Premix 50 mls @ 50 mls/hr 11/17/17 21:30 11/17/17 21: 53 IV 11/17/17 22:29 Not Given ONETIME ONE Azithromycin 500 mg/ Sodium 250 mls @ 250 mls/hr 11/17/17 21:45 Chloride IV ASDIRECTED [facility] Iopamidol 100 ml 11/18/17 08:42 11/18/17 09:16 Isovue-300 (61%) IVPUSH 11/18/17 08:43 60 ml ONETIME ONE Administration Non-Formulary Medication 1,125 each 11/17/17 21:45 Nf Drug PO ASDIRECTED [facility] Rifampin 600 mg 11/19/17 09:00 Rifampin PO [id number] [facility] Rifampin 600 mg 11/17/17 22:00 11/17/17 22:55 Rifampin PO 11/17/17 22:01 Not Given ONETIME ONE Saccharomyces Boulardii 500 mg 11/18/17 09:00 Florastor PO DAILY [facility] Sertraline HCl 25 mg 11/18/17 09:00 11/18/17 09:34 Zoloft PO Not Given DAILY [facility] Sodium Chloride 10 ml 11/18/17 08:42 11/18/17 09:17 Saline Flush FLUSH 11/18/17 16:00 10 ml ONETIME PRN Administration IV FLUSH - Radiology Interpretation Free Text/Narrative:: 87-year-old female brought to the ED per local ambulance from [facility] where she resides. Apparently was noted that she was not doing well at the dining room table this evening. Noted to be coughing paroxysmal he thought to be febrile and O2 sats were 89% on room air. It's unclear how long she has had a cough. Here she is a very productive sounding cough suggestive of underlying pneumonia. Temperature rectally was 102.6. Sats were improved initially with 4 L of oxygen by nasal cannula but when she revealed to get her to cough good and suction her of thick platt-yellow secretions sats improved and we were able to place her on 2 L of oxygen per per nasal cannula to achieve sats of 96%. Plan a sputum will be sent for culture and sensitivity. Chest x-ray to be done DuoNeb will be given to help her expectorate more phlegm. Tylenol 650 mg given orally for fever relief. Lab work to be done to include blood cultures 2. - Re-Assessments/Exams Free Text/Narrative Re-Assessment/Exam: 11/17/17 18:39 One of the patient's son arrived in the ED and I was able to speak with him. He hasn't seen mother for a period of time. He states he doesn' t fact have chronic thick sputum production and chronic cough for many months and/or years. She has some condition he states that precipitates this. 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 He takes antibiotics nearly continuously apparently 2 weeks of Zithromax on and then 2 weeks off. It therefore appears that she has likely developed an acute pneumonia. Chest x-ray has not yet been done. 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 This is the reason for the Zithromax. I will start her on Levaquin 750 mg IV as blood cultures 2 have been collected. 11/17/17 19:02 Care will be transferred to Dr. Emelia De Leon as it is change of shift. The chest x-ray reveals diffuse bilateral pulmonary fibrosis with a reticular-nodular pattern with suspect pneumonia in the left lower lobe and right upper lobe. Cardiac silhouette is essentially normal with a thoracic aorta that appears rather tortuous.
[2017-11-17] MEDS: Sodium Chloride 0.9% 1,000 ML IV SCH (18:25)
[2017-11-17] MEDS ORDERED: Levofloxacin/Dextrose 5%-Water 750 MG in Premix Bag 1 BAG IV ONE (18:41)
[2017-11-17] MEDS ORDERED: Magnesium Sulfate/Water 2 GM in Premix Bag 1 BAG IV ONE ×2 (19:29→21:30)
[2017-11-17] MEDS ORDERED: LORazepam 2 MG/ML SDV IVPUSH PRN (20:29)
[2017-11-17] MEDS ORDERED: hydrALAZINE 20 MG/ML SDV IVPUSH PRN (20:29)
[2017-11-17] MEDS ORDERED: Metoprolol Tartrate 5 MG/5 ML SDV IVPUSH PRN (20:29)
--- NOTE | 2017-11-17 20:29 | PCM.HP ---
H&P History of Present Illness - General Date of Service: 11/17/17 Admit Problem/Dx: CAP Source of Information: Patient, Family, Old Records, Provider, RN Notes Reviewed History Limitations: Reports: Respiratory Distress - History of Present Illness Initial Comments - Free Text/Narative: This is an 87 yo elderly white female with past medical hx/o HTN, Interstitial Lung Disease/Pulmonary Fibrosis, Bronchiectasis, Kyphosis, Hypothyroidism, Essential Tremors, Anemia with TREVOR, Osteoporosis, and Depression who comes in for evaluation of respiratory distress associated with productive cough and a rectal temperature of 102.7. 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 Per medical records, she was diagnosed back in 2014. She was treated before but intolerant to the regimen. She is not following an ID or Pulmonology. However is on prophylactic azithromycin with intermittent dosing. Initial workup in emergency department shows a CBC remarkable for WBC of 14.87, RBC of 3.32, hemoglobin 9.3, hematocrit 39.4, MCH of 31.6, RDW of 15.8, platelet of 473, MPV of 9.3, neutrophils of 81%, lymphocytes of 5%, and monocytes of 11%. Her chemistry is remarkable for BUN of 27, glucose of 142, magnesium 1.7, ALT 60, CRP of 17.5, proBNP of 533, and albumin at 2.7. Chest x- ray shows opacification within the lateral left costophrenic angle along with diffuse scarring or fibrosis. Patient is being admitted for pneumonia with chronic bronchiectasis. She is DNR/ DNI. - Related Data Allergies/Adverse Reactions: Allergies Allergy/AdvReac Type Severity Reaction Status Date / Time grass pollen Allergy Not Listed Verified 11/17/17 22:01 mold Allergy Not Listed Verified 11/17/17 22:01 Home Medications: Home Meds Acetaminophen [Tylenol] 325 mg PO ASDIRECTED PRN 11/17/17 [History] Albuterol Sulfate 2.5 mg IH TID 11/17/17 [History] Azithromycin [IJD: Azithromycin] 250 mg PO ASDIRECTED 11/17/17 [History] Calcium Carbonate/Vitamin D3 [Calcium 600 + Vit D Tablet] 1 each PO BID [History] Denosumab [Prolia] 60 mg SUBCUT Q180D 11/17/17 [History] Ferrous Sulfate 325 mg PO DAILY 11/17/17 [History] Fish Oil/[place]-3 Fatty Acids [Fish Oil 1,000 MG] 1 each PO DAILY 11/17/17 [ History] Hydrocortisone [Preparation H] 1 applic TP TID PRN 11/17/17 [History] I-Darnell With Lutein. 1 cap PO DAILY 11/17/17 [History] L.acidop,Vasquez,Lac,Rha/B.lac,Deon [Advanced Probiotic Capsule] 1 cap PO DAILY 11/17 [History] Levothyroxine [Synthroid] 88 mcg PO DAILY 11/17/17 [History] Lidocaine [Anecream] 1 applic TP Q6H PRN 11/17/17 [History] Mineral Oil/Petrolatum,White [Advanced Eye Relief Opth Oint] 1 applic EYEBOTH BEDTIME PRN 11/17/17 [History] Multivitamin with Minerals [Multivitamins with Minerals] 1 each PO DAILY [History] Olopatadine [Patanol 0.1% Ophth Soln] 1 drop EYEBOTH BID PRN 11/17/17 [History] Polyethylene Glycol 3350 [MiraLAX] 17 gm PO DAILY 11/17/17 [History] Primidone 50 mg PO DAILY 11/17/17 [History] Primidone 250 mg PO DAILY 11/17/17 [History] Propylene Glycol/Peg 400 [Systane 0.3-0.4% Eye Drops] 1 drop EYEBOTH TID [History] Sertraline [Zoloft] 25 mg PO DAILY 11/17/17 [History] amLODIPine Besylate [Norvasc] 2.5 mg PO DAILY 11/17/17 [History] guaiFENesin [Mucinex] 600 mg PO BID 11/17/17 [History] Past Medical History HEENT History: Reports: Hard of Hearing Respiratory History: Reports: Bronchitis, Recurrent (Chronic bronchiectasis. 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.), Other (See Below) (Due to kyphosis she would have ache component of restrictive lung disease as well.) Other Respiratory History: Pt has mycobacterium avium and has an receiving specialist in [place] who follows her for this Gastrointestinal History: Reports: Chronic Constipation Musculoskeletal History: Reports: Osteoporosis, Other (See Below) Other Musculoskeletal History: essential tremors Other Neuro History: Tremors Other Endocrine/Metabolic History: hypothyroidism Hematologic History: Reports: Anemia Dermatologic History: Reports: Other (See Below) Other Dermatologic History: basil cell carcinoma - Infectious Disease History Infectious Disease History: Reports: Other (See Below) Other Infectious Disease History: hx MAC infection, myobacterium avium intracellular infection - Past Surgical History Other HEENT Surgeries/Procedures: Hearing aid right ear only, battery was upon admission, family returned hearing aid to [place]. Social & Family History - Family History Family Medical History: Noncontributory - Tobacco Use Smoking Status *Q: Never Smoker Second Hand Smoke Exposure: No - Caffeine Use Caffeine Use: Reports: Other Other Caffeine Use: unknown - Recreational Drug Use Recreational Drug Use: No - Living Situation & Occupation Living situation: Reports: , Extended Care Facility (Currently residing in) Occupation: Retired ([employer] H&P Review of Systems - Review of Systems: Review Of Systems: See Below General: Reports: Fever, Chills, Malaise, Decreased Appetite, Weight Loss HEENT: Reports: No Symptoms Pulmonary: Reports: Shortness of Breath, Cough, Sputum Cardiovascular: Denies: Chest Pain Gastrointestinal: Reports: Decreased Appetite. Denies: Abdominal Pain, Nausea, Vomiting Genitourinary: Reports: No Symptoms Musculoskeletal: Reports: No Symptoms Skin: Denies: Cyanosis, Jaundice, Pallor, Diaphoresis, Dryness, Rash Psychiatric: Denies: Confusion, Depression, Anxiety, Agitation, Suicidal Ideation Neurological: Denies: Weakness Hematologic/Lymphatic: Reports: No Symptoms Immunologic: Reports: No Symptoms Exam - Exam Exam: See Below - Vital Signs Vital Signs: Last Vital Signs Temp 37.2 C 11/17/17 19:43 Pulse 92 11/17/17 19:43 Resp 30 H 11/17/17 19:43 BP 106/62 11/17/17 19:43 Pulse Ox 92 L 11/17/17 19:43 Weight: 45.359 kg - Exam Quality Assessment: Supplemental Oxygen General: Alert, Oriented, Mild Distress, Other (emaciated) HEENT: Conjunctiva Clear, EOMI, Hearing Intact, Mucosa Moist & [place], Nares Patent, Posterior Pharynx Clear, Pupils Equal, Pupils Reactive, TMs Clear Neck: Supple Lungs: Decreased Breath Sounds, Rales, Rhonchi, Wheezing, Other (coughing up copius amount of phlegm). No: Normal Respiratory Effort Cardiovascular: Regular Rate, Regular Rhythm GI/Abdominal Exam: Normal Bowel Sounds, Soft, Non-Tender, No Organomegaly, No Distention, No Abnormal Bruit (Female) Exam: Deferred Rectal (Female) Exam: Deferred Back Exam: Normal Inspection, Decreased Range of Motion, Other (kyphosis) Extremities: Normal Inspection, Normal Range of Motion, Non-Tender, No Pedal Edema, Normal Capillary Refill Peripheral Pulses: 2+: Posterior Tibial (L), Posterior Tibial (R), Dorsalis Pedis (L), Dorsalis Pedis (R) Skin: Warm, Dry, Intact Neuro Extensive - Mental Status: Oriented x3, Normal Cognition, Memory Intact Neuro Extensive - Motor, Sensory, Reflexes: CN II-XII Intact Psychiatric: Alert, Normal Affect, Normal Mood - Patient Data Lab Results Last 24 hrs: Laboratory Results - last 24 hr 11/17/17 11/17/17 11/17/17 Range/Units 18:25 18:25 18:25 WBC 14.87 H (3.98-10.04) K/mm3 RBC 3.32 L (3.98-5.22) M/mm3 Hgb 9.3 L (11.2-15.7) gm/L Hct 29.4 L (34.1-44.9) % MCV 88.6 (79.4-94.8) fl MCH 28.0 (25.6-32.2) pg MCHC 31.6 L (32.2-35.5) g/dl RDW Std Deviation 50.8 H (36.4-46.3) fL Plt Count 473 H (182-369) K/mm3 MPV 9.3 L (9.4-12.3) fl Neutrophils % (Manual) 81 H (40-60) % Band Neutrophils % 2 (0-10) % Lymphocytes % (Manual) 5 L (20-40) % Atypical Lymphs % 1 % Monocytes % (Manual) 11 H (2-10) % Eosinophils % (Manual) 0 L (0.7-5.8) % Basophils % (Manual) 0 L (0.1-1.2) Platelet Estimate Adequate RBC Morph Comment Normal PT 10.7 (8.0-13.0) SECONDS INR 1.00 Sodium 137 (136-145) mEq/L Potassium 4.1 (3.5-5.1) mEq/L Chloride 100 (98-107) mEq/L Carbon Dioxide 30 (21-32) mEq/L Anion Gap 11.1 (5-15) BUN 27 H (7-18) mg/dL Creatinine 0.9 (0.55-1.02) mg/dL Est Cr Clr Drug Dosing 32.13 mL/min Estimated GFR (MDRD) 59 (>60) mL/min BUN/Creatinine Ratio 30.0 H (14-18) Glucose 142 H (83-115) mg/dL Lactic Acid (0.4-2.0) mmol/L Calcium 9.3 (8.5-10.1) mg/dL Magnesium 1.7 L (1.8-2.4) mg/dl Total Bilirubin 0.2 (0.2-1.0) mg/dL AST 37 (15-37) U/L ALT 60 H (14-59) U/L Alkaline Phosphatase 104 (46-116) U/L CK-MB (CK-2) < 0.5 (0-3.6) ng/ml Troponin I < 0.017 (0.00-0.056) ng/mL C-Reactive Protein 17.5 H* (<1.0) mg/dL NT-Pro-B Natriuret Pep (0-450) pg/mL Total Protein 7.3 (6.4-8.2) g/dl Albumin 2.7 L (3.4-5.0) g/dl Globulin 4.6 gm/dL Albumin/Globulin Ratio 0.6 L (1-2) 11/17/17 11/17/17 Range/Units 18:25 18:25 WBC (3.98-10.04) K/mm3 RBC (3.98-5.22) M/mm3 Hgb (11.2-15.7) gm/L Hct (34.1-44.9) % MCV (79.4-94.8) fl MCH (25.6-32.2) pg MCHC (32.2-35.5) g/dl RDW Std Deviation (36.4-46.3) fL Plt Count (182-369) K/mm3 MPV (9.4-12.3) fl Neutrophils % (Manual) (40-60) % Band Neutrophils % (0-10) % Lymphocytes % (Manual) (20-40) % Atypical Lymphs % % Monocytes % (Manual) (2-10) % Eosinophils % (Manual) (0.7-5.8) % Basophils % (Manual) (0.1-1.2) Platelet Estimate RBC Morph Comment PT (8.0-13.0) SECONDS INR Sodium (136-145) mEq/L Potassium (3.5-5.1) mEq/L Chloride (98-107) mEq/L Carbon Dioxide (21-32) mEq/L Anion Gap (5-15) BUN (7-18) mg/dL Creatinine (0.55-1.02) mg/dL Est Cr Clr Drug Dosing mL/min Estimated GFR (MDRD) (>60) mL/min BUN/Creatinine Ratio (14-18) Glucose (83-115) mg/dL Lactic Acid 1.2 (0.4-2.0) mmol/L Calcium (8.5-10.1) mg/dL Magnesium (1.8-2.4) mg/dl Total Bilirubin (0.2-1.0) mg/dL AST (15-37) U/L ALT (14-59) U/L Alkaline Phosphatase (46-116) U/L CK-MB (CK-2) (0-3.6) ng/ml Troponin I (0.00-0.056) ng/mL C-Reactive Protein (<1.0) mg/dL NT-Pro-B Natriuret Pep 533 H (0-450) pg/mL Total Protein (6.4-8.2) g/dl Albumin (3.4-5.0) g/dl Globulin gm/dL Albumin/Globulin Ratio (1-2) Result Diagrams: 11/18/17 05:05 11/18/17 05:05 Javan Results Last 24 hrs: Microbiology 11/17/17 18:40 Influenza Type A Antigen Screen - Final Nasal Aspirate, Unspecified NEGATIVE INFLUENZA A VIRUS AG Influenza Type B Antigen Screen - Final NEGATIVE INFLUENZA B VIRUS AG *Q Meaningful Use (ADM) - VTE *Q VTE Criteria *Q: - Stroke *Q Stroke Criteria *Q: - AMI *Q AMI Criteria *Q: Problem List Initiated/Reviewed/Updated: Yes Orders Last 24hrs: Active Orders 24 hr Category Date Time Status EKG Documentation Completion [RC] STAT Care 11/17/17 18:03 Active Oxygen Therapy [RC] ASDIRECTED Care 11/17/17 18:04 Active RT Aerosol Therapy [RC] ASDIRECTED Care 11/17/17 18:08 Active Chest 1V Frontal [CR] Stat Exams 11/17/17 18:03 Taken CULTURE BLOOD [BC] Stat Lab 11/17/17 18:25 Received CULTURE BLOOD [BC] Stat Lab 11/17/17 18:35 Received CULTURE SPUTUM + SMEAR [RM] Stat Lab 11/17/17 18:40 Received METH-RESIST S.AUR,MRSA BY PCR [MOLEC] Stat Lab 11/17/17 19:03 Ordered Magnesium Sulfate/Water [Magnesium Sulfate 2 GM in Med 11/17/17 19:29 Active Water 50 ML] 2 gm Premix Bag 1 bag IV ONETIME Sodium Chloride 0.9% [Normal Saline] 1,000 ml Med 11/17/17 18:15 Active IV ASDIRECTED Blood Culture x2 Reflex Set [OM.PC] Stat Oth 11/17/17 18:04 Ordered Medication Orders Sodium Chloride (Normal Saline) 1,000 mls @ 50 mls/hr IV ASDIRECTED DENITA Last Admin: 11/17/17 18:25 Dose: 50 mls/hr Magnesium Sulfate 2 gm/ Premix 50 mls @ 25 mls/hr IV ONETIME ONE Stop: 11/17/17 21:28 Last Admin: 11/17/17 19:42 Dose: 25 mls/hr Assessment/Plan Comment:: Assessment/Plan: Acute: CAP - 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) - Risk Factors: ILD/Pulmonary Fibrosis, Chronic Bronchiectasis (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) - Chest CT scan in 2015: nodular type - 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; Needs ~2-3 anti-biotic treatment for 12 months if positive again - She is on intermittent azithromycin for prophylaxis - Recommended Treatment Azithromycin, Rifabutin/Rifamfin and Ethambutol if positive for MAC - Moderate nodular bronchiectatic disease three-times weekly regimen of: Azithromycin (500 mg three times per week) + Rifampin (600 mg three times per week) + Ethambutol (25 mg/kg three times per week) - Fibrocavitary or severe disease-a daily regimen of: Azithromycin (250 to 500 mg daily) + Rifampin (600 mg daily) + Ethambutol (15 mg/kg daily) - She is currently on Azithromycin see orders from the [facility] (intermittent) - She is not seeing ID or Pulmonology by personal choice - According to family members, she has tried the other 2 antibiotics but got too sick - Received IV Levaquin in ED; will continue - IS/FV, Supplemental O2, Decongestant/Expectorant - No need to screen for HIV - Serial CXR as indicated Mild Hypomagnesemia - 2/2 inadequate intake - Replete and monitor End of Life Care - Not ready yet Chronic: HTN Interstitial Lung Disease/Pulmonary Fibrosis Bronchiectasis Kyphosis Hypothyroidism Essential Tremors Anemia with TREVOR Osteoporosis Depression Plan: Admit to the floor Resume Home Meds Routine AM Labs PT/OT/RT consult SW/CM for d/c planning Code status: DNR/DNI Met up with family at beside. Informed them Azithromycin alone will not treat her chronic lung disease. Family decides, she will be discharged tomorrow.
[2017-11-17] MEDS ORDERED: Hydrocortisone 1% Crm 30 GM Tube TOP PRN (20:30)
[2017-11-17] MEDS ORDERED: Denosumab 60 MG/1 ML Syringe SUBCUT SCH (20:30)
[2017-11-17] MEDS ORDERED: Lanolin/Mineral Oil/Petrolatum Ophth Oint 3.5 GM Tube EYEBOTH PRN (20:30)
[2017-11-17] MEDS ORDERED: Lidocaine 4% Crm 5 Gm with Transparent Dressing Kit TOP PRN (20:30)
[2017-11-17] MEDS ORDERED: OLOPATADINE EYEBOTH PRN (20:30)
[2017-11-17] MEDS ORDERED: HYDROmorphone 1 MG/ML Syringe IVPUSH PRN (20:32)
[2017-11-17] MEDS ORDERED: Promethazine 6.25 MG in Sodium Chloride 0.9% 50 ML IV PRN (20:32)
[2017-11-17] MEDS ORDERED: Temazepam 7.5 MG Cap PO PRN (20:32)
[2017-11-17] MEDS ORDERED: LORazepam 2 MG/ML SDV IV PRN (20:32)
[2017-11-17] MEDS ORDERED: Docusate Sodium 100 MG Cap PO PRN (20:32)
[2017-11-17] MEDS ORDERED: Bisacodyl 5 MG Tab PO PRN (20:32)
[2017-11-17] MEDS ORDERED: Acetaminophen/HYDROcodone 325-5 MG Tab PO PRN (20:32)
[2017-11-17] MEDS ORDERED: Ondansetron 4 MG/2 ML SDV IV PRN (20:32)
[2017-11-17] MEDS ORDERED: Acetaminophen 325 MG Tab PO PRN ×2 (20:32→20:45)
[2017-11-17] MEDS ORDERED: Albuterol/Ipratropium 3.0-0.5 MG/3 ML Neb Soln NEB PRN (20:32)
[2017-11-17] MEDS ORDERED: Non-Formulary Medication 1 Each PO SCH (21:45)
[2017-11-17] MEDS ORDERED: Azithromycin 500 MG in Sodium Chloride 0.9% 250 ML IV SCH (21:45)
[2017-11-17] MEDS ORDERED: Rifampin 300 MG Cap PO ONE (22:00)
[2017-11-17] MEDS ORDERED: guaiFENesin/Dextromethorphan 100-10 MG/5 ML Soln 5 ML Cup PO PRN (22:25)
[2017-11-17] MEDS: Calcium Carbonate/Vitamin D3 600 MG-200 Units Tab PO SCH (22:39)
[2017-11-18] MEDS: Sodium Chloride 0.9% 1,000 ML IV SCH (06:01)
[2017-11-18] MEDS: Levothyroxine 88 MCG Tab PO SCH (06:01)
--- NOTE | 2017-11-18 06:19 | CR ---
Chest: Portable view of the chest was obtained. Comparison: Prior chest x-ray of 04/07/[address] of 04/08/15. Diffuse increased parenchymal densities within both sides of the chest are seen. Most of the findings are chronic compatible with fibrosis and scarring. New density is seen within the lateral left costophrenic angle possibly due to pneumonia. Heart size is slightly enlarged. Tortuous thoracic aorta is seen. Main pulmonary arteries are mildly increased in size compatible with variant of pulmonary arterial hypertension secondary to be pulmonary fibrosis Impression: 1. New density within the lateral left costophrenic angle, please correlate if patient has symptoms of pneumonia. 2. Diffuse pulmonary fibrosis and scarring. 3. Other incidental findings. Diagnostic code #3
[2017-11-18] MEDS ORDERED: HYDROmorphone 0.5 MG/0.5 ML SYRINGE IVPUSH PRN (07:37)
[2017-11-18] MEDS ORDERED: Iopamidol 612 MG/ML 100 ML Bottle IVPUSH ONE (08:42)
[2017-11-18] MEDS ORDERED: Sodium Chloride 0.9% 10 ML Syringe FLUSH PRN (08:42)
[2017-11-18] MEDS ORDERED: Azithromycin 500 MG in Sodium Chloride 0.9% 250 ML IV SCH (09:00)
[2017-11-18] MEDS ORDERED: Sertraline 25 MG Tab PO SCH ×2 (09:00→21:00)
[2017-11-18] MEDS ORDERED: Saccharomyces Boulardii (Probiotic) 250 MG Cap PO SCH (09:00)
[2017-11-18] MEDS ORDERED: cefTRIAXone 1 GM in Sodium Chloride 0.9% 100 ML IV SCH (09:00)
[2017-11-18] MEDS: Fish Oil/Omega-3 Fatty Acids 1 Gm Cap PO SCH (09:36)
[2017-11-18] MEDS: Ferrous Sulfate 325 MG Tab PO SCH (09:36)
[2017-11-18] MEDS: Multivitamins with Minerals/Folic Acid/Lutein/Zeaxanth Tab PO SCH (09:36)
[2017-11-18] MEDS: amLODIPine 2.5 MG Tab PO SCH (09:36)
[2017-11-18] MEDS: Polyethylene Glycol 3350 Powder 17 GM Packet PO SCH (09:36)
[2017-11-18] MEDS: Hypromellose 0.5% Ophth Soln 15 ML Bottle EYEBOTH SCH ×4 (09:36→20:07)
[2017-11-18] MEDS: Multivitamins,Therapeutic Tab PO SCH (09:36)
[2017-11-18] MEDS: Calcium Carbonate/Vitamin D3 600 MG-200 Units Tab PO SCH ×2 (09:36→20:06)
[2017-11-18] MEDS: Saccharomyces Boulardii (Probiotic) 250 MG Cap PO SCH ×2 (09:36→20:07)
[2017-11-18] MEDS: guaiFENesin 600 MG Tab.ER PO SCH ×2 (09:37→20:07)
[2017-11-18] MEDS: Primidone 250 MG Tab PO SCH (09:37)
[2017-11-18] MEDS: Primidone 50 MG Tab PO SCH (09:37)
--- NOTE | 2017-11-18 10:37 | CT ---
CT chest Technique: Multiple axial sections were obtained from above the lung apices inferiorly through the lung bases. Intravenous contrast was utilized. Comparison: Prior chest CT of 04/08/15. Findings: Air cavity containing a small air-fluid level seen within the right lung base. This currently measures about 7.1 cm in size. This was noted on prior exam but was smaller in size at 4.4 cm. Diffuse bronchiectasis is seen within the right lung base. Lesser bronchiectasis noted within the left lung base. Minimal bronchiectasis noted within the upper lungs. Small air cavity is seen within the left upper lung measuring about 1.3 cm in size. This is an interval change from previous exam. Scattered parenchymal densities are seen on both sides of the chest which appears to represent scarring and fibrosis which has slightly progressed from previous exam. Small left-sided pleural effusion with minimal right sided pleural effusion is seen. Small portion of the visualized upper abdominal structures are within normal limits. Heart is enlarged. Coronary artery calcification is noted. Atherosclerotic calcification is noted within the thoracic aorta. Bone window settings were reviewed showing scattered degenerative change within the spine. Impression: 1. Air cavity within the right lung base increased in size from prior chest CT. This air cavity contains a small air-fluid level. Smaller air cavity within the left upper lung which is an interval change from previous study. 2. Increasing parenchymal densities within both sides of the chest from previous exam compatible with increasing fibrosis and scarring. 3. Minimal right sided pleural effusion with small left-sided pleural effusion which is an interval change. 4. Bronchiectasis as described above which is fairly stable from previous exam. 5. Other incidental findings as noted above. Diagnostic code #3
--- NOTE | 2017-11-18 14:58 | PCM.PN ---
- General Info Date of Service: 11/18/17 Admission Dx/Problem (Free Text): CAP Functional Status: Reports: Pain Controlled, Tolerating Diet, Ambulating, Urinating - Review of Systems General: Denies: Fever, Weakness, Fatigue, Malaise HEENT: Reports: No Symptoms Pulmonary: Reports: Shortness of Breath, Cough, Sputum. Denies: Pleuritic Chest Pain, Wheezing Cardiovascular: Denies: Chest Pain, Palpitations, Dyspnea on Exertion, Lightheadedness Gastrointestinal: Denies: Abdominal Pain, Decreased Appetite, Nausea, Vomiting Genitourinary: Reports: No Symptoms Musculoskeletal: Reports: No Symptoms Skin: Denies: Cyanosis, Mottled, Pallor, Diaphoresis Neurological: Denies: Confusion, Pre-Existing Deficit, Difficulty Walking, Weakness, Gait Disturbance Psychiatric: Denies: Depression, Anxiety, Agitation, Hallucinations Systems Review Comment:: No significant overnight or acute issues. She looks better this morning. She has been afebrile with improving WBC level. She is liking the airway suction device. She has no new complaints. - Patient Data Vitals - Most Recent: Last Vital Signs Temp 37.3 C 11/18/17 07:29 Pulse 81 11/18/17 12:04 Resp 24 H 11/18/17 12:04 BP 123/60 11/18/17 12:04 Pulse Ox 100 11/18/17 12:04 Weight - Most Recent: 45.359 kg I&O - Last 24 Hours: Intake & Output 11/17/17 11/18/17 11/18/17 22:59 06:59 14:59 Intake Total 745 0 Balance 745 0 Lab Results Last 24 Hours: Laboratory Results - last 24 hr 11/18/17 11/18/17 11/18/17 Range/Units 05:05 05:05 13:06 WBC 9.63 (3.98-10.04) K/mm3 RBC 3.26 L (3.98-5.22) M/mm3 Hgb 9.2 L (11.2-15.7) gm/L Hct 29.0 L (34.1-44.9) % MCV 89.0 (79.4-94.8) fl MCH 28.2 (25.6-32.2) pg MCHC 31.7 L (32.2-35.5) g/dl RDW Std Deviation 50.5 H (36.4-46.3) fL Plt Count 432 H (182-369) K/mm3 MPV 9.5 (9.4-12.3) fl Neut % (Auto) 77.8 H (34.0-71.1) % Lymph % (Auto) 8.8 L (19.3-51.7) % [place] % (Auto) 11.7 (4.7-12.5) % Eos % (Auto) 1.3 (0.7-5.8) Baso % (Auto) 0.2 (0.1-1.2) % Neut # (Auto) 7.48 H (1.56-6.13) K/mm3 Lymph # (Auto) 0.85 L (1.18-3.74) K/mm3 [place] # (Auto) 1.13 H (0.24-0.36) K/mm3 Eos # (Auto) 0.13 (0.04-0.36) K/mm3 Baso # (Auto) 0.02 (0.01-0.08) K/mm3 Manual Slide Review Abnormal smear Sodium 139 (136-145) mEq/L Potassium 4.5 (3.5-5.1) mEq/L Chloride 103 (98-107) mEq/L Carbon Dioxide 29 (21-32) mEq/L Anion Gap 11.5 (5-15) BUN 22 H (7-18) mg/dL Creatinine 0.7 (0.55-1.02) mg/dL Est Cr Clr Drug Dosing 41.33 mL/min Estimated GFR (MDRD) > 60 (>60) mL/min BUN/Creatinine Ratio 31.4 H (14-18) Glucose 94 (83-115) mg/dL Calcium 8.7 (8.5-10.1) mg/dL Magnesium 1.9 (1.8-2.4) mg/dl C-Reactive Protein 16.2 H* (<1.0) mg/dL Urine Color Yellow (Yellow) Urine Appearance Clear (Clear) Urine pH 5.5 (5.0-8.0) Ur Specific [place] 1.025 (1.005-1.030) Urine Protein 1+ H (Negative) Urine Glucose (UA) Negative (Negative) Urine Ketones Negative (Negative) Urine Occult Blood Negative (Negative) Urine Nitrite Negative (Negative) Urine Bilirubin Negative (Negative) Urine Urobilinogen 0.2 (0.2-1.0) Ur Leukocyte Esterase Negative (Negative) Urine RBC Not seen (0-5) /hpf Urine WBC 0-5 (0-5) /hpf Ur Epithelial Cells 0-5 (0-5) /hpf Urine Bacteria Not seen (FEW) /hpf Urine Mucus Not seen (FEW) /hpf Med Orders - Current: Current Medications Acetaminophen (Tylenol) 650 mg PO Q4H PRN PRN Reason: Pain (Mild 1-3)/fever Hydrocodone Bitart/Acetaminophen ([place] 325-5 Mg) 1 tab PO Q4H PRN PRN Reason: Pain (moderate 4-6) Albuterol/Ipratropium (Duoneb 3.0-0.5 Mg/3 Ml) 3 ml NEB Q4H PRN PRN Reason: Shortness Of Breath/wheezing Amlodipine Besylate (Norvasc) 2.5 mg PO DAILY [facility] Last Admin: 11/18/17 09:36 Dose: 2.5 mg Artificial Tears (Artificial Tears) 0 gm EYEBOTH BEDTIME PRN PRN Reason: Dry Eyes Artificial Tears (Isopto Tears 0.5% Ophth Soln) 0 ml EYEBOTH TID [facility] Last Admin: 11/18/17 09:36 Dose: 1 drop Bisacodyl (Dulcolax) 5 mg PO DAILY PRN PRN Reason: Constipation Calcium Carbonate (Calcium Carbonate/Vitamin D 600 Mg-200 Unit) 1 tab PO BID [facility] Last Admin: 11/18/17 09:36 Dose: 1 tab Docusate Sodium (Colace) 100 mg PO BID PRN PRN Reason: Constipation Ferrous Sulfate (Ferrous Sulfate) 325 mg PO DAILY [facility] Last Admin: 11/18/17 09:36 Dose: 325 mg Fish Oil (Fish Oil) 1 gm PO DAILY [facility] Last Admin: 11/18/17 09:36 Dose: 1 gm Guaifenesin (Mucinex) 600 mg PO BID [facility] Last Admin: 11/18/17 09:37 Dose: 600 mg Guaifenesin/Phenylephrine HCl (Robitussin Dm) 5 ml PO Q4H PRN PRN Reason: Cough Hydralazine HCl (Apresoline) 10 mg IVPUSH Q4H PRN PRN Reason: Hypertension Hydrocortisone (Hydrocortisone 1% Crm) 0 gm TOP TID PRN PRN Reason: Hemorrhoids Hydromorphone HCl (Dilaudid) 0.25 mg IVPUSH Q2H PRN PRN Reason: Pain (severe 7-10) Sodium Chloride (Normal Saline) 1,000 mls @ 50 mls/hr IV ASDIRECTED [facility] Last Admin: 11/18/17 06:01 Dose: 50 mls/hr Promethazine HCl 6.25 mg/ (Sodium Chloride) 50.25 mls @ 100 mls/hr IV Q6H PRN PRN Reason: Nausea/Vomiting Levothyroxine Sodium (Synthroid) 88 mcg PO ACBRK [facility] Last Admin: 11/18/17 06:01 Dose: 88 mcg Lidocaine HCl (Lmx 4 Cream With Tegaderm) 1 each TOP Q6H PRN PRN Reason: unknown Lorazepam (Ativan) 2 mg IVPUSH Q4H PRN PRN Reason: Seizures Lorazepam (Ativan) 0.25 mg IV Q6H PRN PRN Reason: Anxiety Magnesium Sulfate (Pharmacy To Dose - Magnesium Replacement) 0 dose .XX ASDIRECTED PRN PRN Reason: RX TO WATCH MAG LEVELS Metoprolol Tartrate (Lopressor) 5 mg IVPUSH Q4H PRN PRN Reason: Tachycardia Multivitamins (Thera) 1 each PO DAILY [facility] Last Admin: 11/18/17 09:36 Dose: 1 each Ondansetron HCl (Zofran) 4 mg IV Q6H PRN PRN Reason: Nausea/Vomiting Patanol (Olopatadine () 1% Opth Solution) 0 each EYEBOTH BID PRN PRN Reason: allergy symptoms Polyethylene Glycol (Miralax) 17 gm PO DAILY [facility] Last Admin: 11/18/17 09:36 Dose: 17 gm Potassium Chloride (Pharmacy To Dose - Potassium Replacement) 0 dose .XX ASDIRECTED PRN PRN Reason: RX TO WATCH K LEVELS Primidone (Mysoline) 250 mg PO DAILY [facility] Last Admin: 11/18/17 09:37 Dose: 250 mg Primidone (Mysoline) 50 mg PO DAILY [facility] Last Admin: 11/18/17 09:37 Dose: 50 mg Saccharomyces Boulardii (Florastor) 250 mg PO BID [facility] Last Admin: 11/18/17 09:36 Dose: 250 mg Senna/Docusate Sodium (Senna Plus) 1 tab PO BID PRN PRN Reason: Constipation Sertraline HCl (Zoloft) 25 mg PO DAILY [facility] Last Admin: 11/18/17 09:34 Dose: Not Given Sodium Chloride (Saline Flush) 10 ml FLUSH ONETIME PRN PRN Reason: IV FLUSH Stop: 11/18/17 16:00 Last Admin: 11/18/17 09:17 Dose: 10 ml Temazepam (Restoril) 7.5 mg PO BEDTIME PRN PRN Reason: Sleep Vit A/Vit C/Vit E/Selen/Cu/Zn/Lutei (Icaps Mv) 1 tab PO DAILY [facility] Last Admin: 11/18/17 09:36 Dose: 1 tab Discontinued Medications Acetaminophen (Tylenol) 650 mg PO NOW ONE Stop: 11/17/17 18:09 Last Admin: 11/17/17 18:40 Dose: 650 mg Acetaminophen (Tylenol) 325 mg PO ASDIRECTED PRN PRN Reason: Pain Albuterol/Ipratropium (Duoneb 3.0-0.5 Mg/3 Ml) 3 ml NEB ONETIME ONE Stop: 11/17/17 18:09 Last Admin: 11/17/17 18:16 Dose: 3 ml Denosumab (Prolia) 60 mg SUBCUT Q180D [facility] Hydromorphone HCl (Dilaudid) 0.25 mg IVPUSH Q2H PRN PRN Reason: Pain (severe 7-10) Levofloxacin/Dextrose 750 mg/ (Premix) 150 mls @ 100 mls/hr IV ONETIME ONE Stop: 11/17/17 20:10 Last Admin: 11/17/17 18:56 Dose: 100 mls/hr Magnesium Sulfate 2 gm/ Premix 50 mls @ 25 mls/hr IV ONETIME ONE Stop: 11/17/17 21:28 Last Admin: 11/17/17 19:42 Dose: 25 mls/hr Azithromycin 500 mg/ Sodium (Chloride) 250 mls @ 250 mls/hr IV Q24H [facility] Ceftriaxone Sodium 1 gm/ (Sodium Chloride) 100 mls @ 200 mls/hr IV Q24H [facility] Magnesium Sulfate 2 gm/ Premix 50 mls @ 50 mls/hr IV ONETIME ONE Stop: 11/17/17 22:29 Last Admin: 11/17/17 21:53 Dose: Not Given Azithromycin 500 mg/ Sodium (Chloride) 250 mls @ 250 mls/hr IV ASDIRECTED [facility] Iopamidol (Isovue-300 (61%)) 100 ml IVPUSH ONETIME ONE Stop: 11/18/17 08:43 Last Admin: 11/18/17 09:16 Dose: 60 ml Non-Formulary Medication (Nf Drug) 1,125 each PO ASDIRECTED [facility] Rifampin (Rifampin) 600 mg PO MoWeFr@0900 [facility] Rifampin (Rifampin) 600 mg PO ONETIME ONE Stop: 11/17/17 22:01 Last Admin: 11/17/17 22:55 Dose: Not Given Saccharomyces Boulardii (Florastor) 500 mg PO DAILY [facility] - Exam Quality Assessment: Supplemental Oxygen General: Alert, Oriented, Cooperative, No Acute Distress HEENT: Pupils Equal, Pupils Reactive, EOMI, Mucous Membr. Moist/[place] Neck: Supple, Trachea Midline, No JVD, No Thyromegaly Lungs: Normal Respiratory Effort, Decreased Breath Sounds, Rhonchi, Wheezing Cardiovascular: Regular Rate, Regular Rhythm GI/Abdominal Exam: Normal Bowel Sounds, Soft, Non-Tender, No Organomegaly, No Distention, No Abnormal Bruit (Female) Exam: Deferred Back Exam: Normal Inspection, Decreased Range of Motion, Other (kyphosis) Extremities: Normal Inspection, Normal Range of Motion, Non-Tender, No Pedal Edema, Normal Capillary Refill Peripheral Pulses: 2+: Dorsalis Pedis (L), Dorsalis Pedis (R) Skin: Warm, Dry, Intact Neurological: No New Focal Deficit Psy/Mental Status: Alert, Normal Affect, Normal Mood - Problem List Review Problem List Initiated/Reviewed/Updated: Yes - My Orders Last 24 Hours: My Active Orders 11/17/17 22:25 Dextromethorphan/guaiFENesin [Robitussin DM] 5 ml PO Q4H PRN 11/17/17 22:50 RESPIRATORY PANEL BY PCR [MREF] Stat 11/18/17 07:37 HYDROmorphone [Dilaudid] 0.25 mg IVPUSH Q2H PRN 11/18/17 08:42 Sodium Chloride 0.9% [Saline Flush] 10 ml FLUSH ONETIME PRN 11/18/17 13:06 STREP PNEUMONIAE ANTIGEN [MREF] Stat - Plan Plan:: Assessment/Plan: Acute: CAP - 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) - Risk Factors: ILD/Pulmonary Fibrosis, Chronic Bronchiectasis (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) - Chest CT scan in 04/08/2015: reticular nodular type - 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; Needs ~2-3 anti-biotic treatment for 12 months if positive again - She is on intermittent azithromycin for prophylaxis - Recommended Treatment Azithromycin, Rifabutin/Rifamfin and Ethambutol if positive for MAC; awaiting sputum - Moderate nodular bronchiectatic disease three-times weekly regimen of: Azithromycin (500 mg three times per week) + Rifampin (600 mg three times per week) + Ethambutol (25 mg/kg three times per week) - Fibrocavitary or severe disease-a daily regimen of: Azithromycin (250 to 500 mg daily) + Rifampin (600 mg daily) + Ethambutol (15 mg/kg daily) - She is currently on Azithromycin see orders from the [place] (intermittent) - She is not seeing ID or Pulmonology by personal choice - According to family members, she has tried the other 2 antibiotics but got too sick - Continue IV Levaquin today and will switch to oral in AM - IS/FV, Supplemental O2, Decongestant/Expectorant; Airway suction to remove copious oral secretions - No need to screen for HIV; unclear if she carries a hx/o immuno-suppressed state - Respiratory panel, Sputum Cx, Influenza screening, Mycoplasma and blood cultures- all negative - Chest CT scan report reads air cavity within the right lung base increased in size from prior chest CT scan. This air cavity contains small air-fluid level. Smaller air cavity within the left lower lobe which is an interval change from previous study. Increasing parenchymal densities. In both sides of the chest from previous exam compatible with increasing fibrosis and scarring. Minimal right-sided pleural effusion and a small left-sided pleural effusion which is an interval change. Bronchiectasis which is fairly stable from previous exam. - Serial CXR as indicated S/p Mild Hypomagnesemia - Mg 1.7 --> 1.9 - 2/2 inadequate intake - Replete and monitor End of Life Care - Family members receptive Chronic: HTN Interstitial Lung Disease/Pulmonary Fibrosis Bronchiectasis Kyphosis Hypothyroidism Essential Tremors Anemia with TREVOR, Hgb stable at 9.2 Hx/o MAC infection Osteoporosis Depression Plan: She is clinically much better Resume Home Meds Routine AM Labs Continue PT/OT/RT TYPING SECTION CHIEF to assess oral dysfunction PFT to assess RAD and the need for supplemental O2 She may benefit with chest physiotherapy SW/CM for d/c planning Code status: DNR/DNI Possible d/c in 1-2 days Explained to family her symptoms is similar to bronchiectasis. I encouraged patient to see a lung or ID specialist in [place], however she refused it. Family understood, I do not have much to offer here. However, we will try if she can have airway suction device, supplemental O2, pulmonary rehab services prior to discharge.
[2017-11-18] MEDS ORDERED: Sodium Chloride 0.9% 1,000 ML IV SCH (16:15)
[2017-11-18] MEDS ORDERED: Levofloxacin/Dextrose 5%-Water 750 MG in Premix Bag 1 BAG IV ONE (22:29)
[2017-11-19] MEDS: Levothyroxine 88 MCG Tab PO SCH (07:00)
--- NOTE | 2017-11-19 08:22 | CR ---
Chest: Portable view of the chest is obtained. Comparison: Prior chest x-ray of 11/17/17. Parenchymal density is seen within the left lung base involving the lateral left costophrenic angle which is stable. Lesser parenchymal change is noted within the left upper lung as well as right upper and right lower lung which appears mostly stable. Heart size is slightly enlarged. Upper mediastinum is normal. Apical pleural thickening is seen. Bony structures appear unchanged. Impression: 1. Multiple findings. No appreciable change is seen from previous chest x-ray. Diagnostic code #3
[2017-11-19] MEDS ORDERED: Magnesium Oxide 400 MG Tab PO ONE (08:30)
[2017-11-19] MEDS: Calcium Carbonate/Vitamin D3 600 MG-200 Units Tab PO SCH (08:59)
[2017-11-19] MEDS: Multivitamins,Therapeutic Tab PO SCH (08:59)
[2017-11-19] MEDS: Multivitamins with Minerals/Folic Acid/Lutein/Zeaxanth Tab PO SCH (08:59)
[2017-11-19] MEDS: Hypromellose 0.5% Ophth Soln 15 ML Bottle EYEBOTH SCH (08:59)
[2017-11-19] MEDS: Saccharomyces Boulardii (Probiotic) 250 MG Cap PO SCH (08:59)
[2017-11-19] MEDS ORDERED: Rifampin 300 MG Cap PO SCH (09:00)
[2017-11-19] MEDS: guaiFENesin 600 MG Tab.ER PO SCH (09:00)
[2017-11-19] MEDS: Fish Oil/Omega-3 Fatty Acids 1 Gm Cap PO SCH (09:00)
[2017-11-19] MEDS: Primidone 250 MG Tab PO SCH (09:00)
[2017-11-19] MEDS: Ferrous Sulfate 325 MG Tab PO SCH (09:00)
[2017-11-19] MEDS: Primidone 50 MG Tab PO SCH (09:00)
[2017-11-19] MEDS: amLODIPine 2.5 MG Tab PO SCH (09:00)
[2017-11-19] MEDS: Polyethylene Glycol 3350 Powder 17 GM Packet PO SCH (09:01)
[2017-11-19] MEDS ORDERED: Azithromycin 250 MG Tab PO SCH (11:45)
--- NOTE | 2017-11-19 11:56 | PCM.DCSUM1 ---
Discharge Summary - Hospital Course Brief History: This is an 87 yo elderly white female with past medical hx/o HTN , Interstitial Lung Disease/Pulmonary Fibrosis, Bronchiectasis, Kyphosis, Hypothyroidism, Essential Tremors, Anemia with TREVOR, Osteoporosis, and Depression who comes in for evaluation of respiratory distress associated with productive cough and a rectal temperature of 102.7. - Discharge Data Discharge Date: 11/19/17 Discharge Disposition: DC/Tfer to Other 70 Condition: Fair - Discharge Diagnosis/Problem(s) (1) Pneumonia SNOMED Code(s): 599355341 ICD Code: J18.9 - PNEUMONIA, UNSPECIFIED ORGANISM Status: Acute (2) End of life care SNOMED Code(s): 012034584 ICD Code: Z51.5 - ENCOUNTER FOR PALLIATIVE CARE Status: Acute (3) Interstitial lung disease SNOMED Code(s): 211999035 ICD Code: J84.9 - INTERSTITIAL PULMONARY DISEASE, UNSPECIFIED Status: Chronic (4) Hypomagnesemia SNOMED Code(s): 391474195 ICD Code: E83.42 - HYPOMAGNESEMIA Status: Resolved - Patient Summary/Data Operative Procedure(s) Performed: None Complications: None Consults: Consultations 11/18/17 17:30 Consult to Speech Language Pathology [DESIGN MAINTENANCE ENGINEER Evaluation and Treatment] [CONS] Routine Labs Pending at D/C: None Recommended Follow-up Testing/Procedures: None Planned Operative Procedure(s) after DC: None - Patient Instructions Diet: Usual Diet as Tolerated Activity: As Tolerated Driving: Do Not Drive Showering/Bathing: May Shower Notify Provider of: Fever, Increased Pain, Swelling and Redness, Nausea and/or Vomiting Other/Special Instructions: - Please take all medications as directed. - Continue home routine medications. - Resume routine home activities as tolerated. - Continue to use IS/FV (incentive spirometry) as directed. - Continue supplemental O2 as needed for hypoxia. - Use airway suction device as needed. - Recommend a repeat CXR and follow up with your PCP in 1-2 weeks. - Call your family doctor for any questions or concerns after discharge. - Come back or seek immediate care should your symptoms persist or get worse - Discharge Plan Prescriptions/Med Rec: Levofloxacin [Levaquin] 750 mg PO Q48H #3 tablet Saccharomyces Boulardii [Florastor] 250 mg PO Q48H #3 cap Home Medications: Home Meds Acetaminophen [Tylenol] 325 mg PO ASDIRECTED PRN 11/17/17 [History] Albuterol Sulfate 2.5 mg IH TID 11/17/17 [History] Azithromycin [IJD: Azithromycin] 250 mg PO ASDIRECTED 11/17/17 [History] Calcium Carbonate/Vitamin D3 [Calcium 600 + Vit D Tablet] 1 each PO BID [History] Denosumab [Prolia] 60 mg SUBCUT Q180D 11/17/17 [History] Ferrous Sulfate 325 mg PO DAILY 11/17/17 [History] Fish Oil/[place]-3 Fatty Acids [Fish Oil 1,000 MG] 1 each PO DAILY 11/17/17 [ History] Hydrocortisone [Preparation H] 1 applic TP TID PRN 11/17/17 [History] I-Darnell With Lutein. 1 cap PO DAILY 11/17/17 [History] L.acidop,Vasquez,Lac,Rha/B.lac,Deon [Advanced Probiotic Capsule] 1 cap PO DAILY 11/17 [History] Levothyroxine [Synthroid] 88 mcg PO DAILY 11/17/17 [History] Lidocaine [Anecream] 1 applic TP Q6H PRN 11/17/17 [History] Mineral Oil/Petrolatum,White [Advanced Eye Relief Opth Oint] 1 applic EYEBOTH BEDTIME PRN 11/17/17 [History] Multivitamin with Minerals [Multivitamins with Minerals] 1 each PO DAILY [History] Olopatadine [Patanol 0.1% Ophth Soln] 1 drop EYEBOTH BID PRN 11/17/17 [History] Polyethylene Glycol 3350 [MiraLAX] 17 gm PO DAILY 11/17/17 [History] Primidone 50 mg PO DAILY 11/17/17 [History] Primidone 250 mg PO DAILY 11/17/17 [History] Propylene Glycol/Peg 400 [Systane 0.3-0.4% Eye Drops] 1 drop EYEBOTH TID [History] Sertraline [Zoloft] 25 mg PO DAILY 11/17/17 [History] amLODIPine Besylate [Norvasc] 2.5 mg PO DAILY 11/17/17 [History] guaiFENesin [Mucinex] 600 mg PO BID 11/17/17 [History] Levofloxacin [Levaquin] 750 mg PO Q48H #3 tablet 11/19/17 [Rx] Saccharomyces Boulardii [Florastor] 250 mg PO Q48H #3 cap 11/19/17 [Rx] Patient Handouts: Hypomagnesemia, Bronchiectasis, Community-Acquired Pneumonia , Adult, [id number] Referrals: Ines Candelaria MD [Primary Care Provider] - - Discharge Summary/Plan Comment DC Time >30 min.: Yes (46 mind) - General Info Date of Service: 11/19/17 Admission Dx/Problem (Free Text: CAP Subjective Update: Follow Up Functional Status: Reports: Pain Controlled, Tolerating Diet, Ambulating, Urinating - Review of Systems General: Reports: Weakness. Denies: Fever, Fatigue, Malaise, Chills HEENT: Reports: No Symptoms Pulmonary: Reports: Shortness of Breath, Cough, Sputum. Denies: Pleuritic Chest Pain Cardiovascular: Reports: Dyspnea on Exertion. Denies: Chest Pain, Palpitations , Lightheadedness Gastrointestinal: Denies: Abdominal Pain, Nausea, Vomiting Genitourinary: Reports: No Symptoms Musculoskeletal: Reports: No Symptoms Skin: Denies: Cyanosis, Jaundice, Mottled, Pallor, Diaphoresis Neurological: Reports: Weakness. Denies: Confusion, Pre-Existing Deficit, Difficulty Walking, Gait Disturbance Psychiatric: Denies: Depression, Anxiety, Agitation, Hallucinations Systems Review Comment: No significant overnight or acute issues. She is just fine. She has no complaints. - Patient Data Vitals - Most Recent: Last Vital Signs Temp 37.3 C 11/19/17 07:29 Pulse 78 11/19/17 07:29 Resp 34 H 11/19/17 07:29 BP 125/67 11/19/17 09:00 Pulse Ox 97 11/19/17 07:29 Weight - Most Recent: 47.128 kg I&O - Last 24 hours: Intake & Output 11/18/17 11/19/17 11/19/17 22:59 06:59 14:59 Intake Total 920 535 0 Output Total 50 Balance 920 485 0 Lab Results - Last 24 hrs: Laboratory Results - last 24 hr 11/18/17 11/19/17 11/19/17 Range/Units 13:06 06:40 06:40 WBC 8.40 (3.98-10.04) K/mm3 RBC 3.58 L (3.98-5.22) M/mm3 Hgb 10.0 L (11.2-15.7) gm/L Hct 31.6 L (34.1-44.9) % MCV 88.3 (79.4-94.8) fl MCH 27.9 (25.6-32.2) pg MCHC 31.6 L (32.2-35.5) g/dl RDW Std Deviation 48.6 H (36.4-46.3) fL Plt Count 430 H (182-369) K/mm3 MPV 9.1 L (9.4-12.3) fl Neut % (Auto) 76.2 H (34.0-71.1) % Lymph % (Auto) 9.8 L (19.3-51.7) % [place] % (Auto) 11.5 (4.7-12.5) % Eos % (Auto) 1.9 (0.7-5.8) Baso % (Auto) 0.2 (0.1-1.2) % Neut # (Auto) 6.40 H (1.56-6.13) K/mm3 Lymph # (Auto) 0.82 L (1.18-3.74) K/mm3 [place] # (Auto) 0.97 H (0.24-0.36) K/mm3 Eos # (Auto) 0.16 (0.04-0.36) K/mm3 Baso # (Auto) 0.02 (0.01-0.08) K/mm3 Manual Slide Review Abnormal smear Sodium 135 L (136-145) mEq/L Potassium 4.4 (3.5-5.1) mEq/L Chloride 100 (98-107) mEq/L Carbon Dioxide 29 (21-32) mEq/L Anion Gap 10.4 (5-15) BUN 17 (7-18) mg/dL Creatinine 0.7 (0.55-1.02) mg/dL Est Cr Clr Drug Dosing 42.92 mL/min Estimated GFR (MDRD) > 60 (>60) mL/min BUN/Creatinine Ratio 24.3 H (14-18) Glucose 89 (83-115) mg/dL Calcium 8.2 L (8.5-10.1) mg/dL Magnesium 1.7 L (1.8-2.4) mg/dl C-Reactive Protein 17.9 H* (<1.0) mg/dL Urine Color Yellow (Yellow) Urine Appearance Clear (Clear) Urine pH 5.5 (5.0-8.0) Ur Specific [place] 1.025 (1.005-1.030) Urine Protein 1+ H (Negative) Urine Glucose (UA) Negative (Negative) Urine Ketones Negative (Negative) Urine Occult Blood Negative (Negative) Urine Nitrite Negative (Negative) Urine Bilirubin Negative (Negative) Urine Urobilinogen 0.2 (0.2-1.0) Ur Leukocyte Esterase Negative (Negative) Urine RBC Not seen (0-5) /hpf Urine WBC 0-5 (0-5) /hpf Ur Epithelial Cells 0-5 (0-5) /hpf Urine Bacteria Not seen (FEW) /hpf Urine Mucus Not seen (FEW) /hpf YOHAN Results - Last 24 hrs: Microbiology 11/18/17 13:06 Streptococcus pneumoniae Antigen (M - Final Urine 11/17/17 22:50 Respiratory Virus Panel (PCR) (YOHAN) - Final Nasopharyngeal Swab Med Orders - Current: Current Medications Acetaminophen (Tylenol) 650 mg PO Q4H PRN PRN Reason: Pain (Mild 1-3)/fever Hydrocodone Bitart/Acetaminophen (Mcin[place]re 325-5 Mg) 1 tab PO Q4H PRN PRN Reason: Pain (moderate 4-6) Albuterol (Proventil Neb Soln) 2.5 mg NEB TID [facility] Albuterol/Ipratropium (Duoneb 3.0-0.5 Mg/3 Ml) 3 ml NEB Q4H PRN PRN Reason: Shortness Of Breath/wheezing Amlodipine Besylate (Norvasc) 2.5 mg PO DAILY [facility] Last Admin: 11/19/17 09:00 Dose: 2.5 mg Artificial Tears (Artificial Tears) 0 gm EYEBOTH BEDTIME PRN PRN Reason: Dry Eyes Artificial Tears (Isopto Tears 0.5% Ophth Soln) 0 ml EYEBOTH TID [facility] Last Admin: 11/19/17 08:59 Dose: 1 drop Azithromycin (Zithromax) 250 mg PO DAILY [facility] Stop: 12/02/17 09:01 Bisacodyl (Dulcolax) 5 mg PO DAILY PRN PRN Reason: Constipation Calcium Carbonate (Calcium Carbonate/Vitamin D 600 Mg-200 Unit) 1 tab PO BID [facility] Last Admin: 11/19/17 08:59 Dose: 1 tab Docusate Sodium (Colace) 100 mg PO BID PRN PRN Reason: Constipation Ferrous Sulfate (Ferrous Sulfate) 325 mg PO DAILY [facility] Last Admin: 11/19/17 09:00 Dose: 325 mg Fish Oil (Fish Oil) 1 gm PO DAILY [facility] Last Admin: 11/19/17 09:00 Dose: 1 gm Guaifenesin (Mucinex) 600 mg PO BID [facility] Last Admin: 11/19/17 09:00 Dose: 600 mg Guaifenesin/Phenylephrine HCl (Robitussin Dm) 5 ml PO Q4H PRN PRN Reason: Cough Hydralazine HCl (Apresoline) 10 mg IVPUSH Q4H PRN PRN Reason: Hypertension Hydrocortisone (Hydrocortisone 1% Crm) 0 gm TOP TID PRN PRN Reason: Hemorrhoids Hydromorphone HCl (Dilaudid) 0.25 mg IVPUSH Q2H PRN PRN Reason: Pain (severe 7-10) Promethazine HCl 6.25 mg/ (Sodium Chloride) 50.25 mls @ 100 mls/hr IV Q6H PRN PRN Reason: Nausea/Vomiting Sodium Chloride (Normal Saline) 1,000 mls @ 15 mls/hr IV ASDIRECTED [facility] Stop: 11/22/17 16:13 Levofloxacin (Levaquin) 750 mg PO Q48H [facility] Levothyroxine Sodium (Synthroid) 88 mcg PO ACBRK [facility] Last Admin: 11/19/17 07:00 Dose: 88 mcg Lidocaine HCl (Lmx 4 Cream With Tegaderm) 1 each TOP Q6H PRN PRN Reason: unknown Lorazepam (Ativan) 2 mg IVPUSH Q4H PRN PRN Reason: Seizures Lorazepam (Ativan) 0.25 mg IV Q6H PRN PRN Reason: Anxiety Magnesium Sulfate (Pharmacy To Dose - Magnesium Replacement) 0 dose .XX ASDIRECTED PRN PRN Reason: RX TO WATCH MAG LEVELS Metoprolol Tartrate (Lopressor) 5 mg IVPUSH Q4H PRN PRN Reason: Tachycardia Multivitamins (Thera) 1 each PO DAILY [facility] Last Admin: 11/19/17 08:59 Dose: 1 each Ondansetron HCl (Zofran) 4 mg IV Q6H PRN PRN Reason: Nausea/Vomiting Patanol (Olopatadine () 1% Opth Solution) 0 each EYEBOTH BID PRN PRN Reason: allergy symptoms Polyethylene Glycol (Miralax) 17 gm PO DAILY [facility] Last Admin: 11/19/17 09:01 Dose: Not Given Potassium Chloride (Pharmacy To Dose - Potassium Replacement) 0 dose .XX ASDIRECTED PRN PRN Reason: RX TO WATCH K LEVELS Primidone (Mysoline) 250 mg PO DAILY [facility] Last Admin: 11/19/17 09:00 Dose: 250 mg Primidone (Mysoline) 50 mg PO DAILY [facility] Last Admin: 11/19/17 09:00 Dose: 50 mg Saccharomyces Boulardii (Florastor) 250 mg PO BID [facility] Last Admin: 11/19/17 08:59 Dose: 250 mg Senna/Docusate Sodium (Senna Plus) 1 tab PO BID PRN PRN Reason: Constipation Sertraline HCl (Zoloft) 25 mg PO BEDTIME [facility] Last Admin: 11/18/17 20:07 Dose: 25 mg Temazepam (Restoril) 7.5 mg PO BEDTIME PRN PRN Reason: Sleep Last Admin: 11/18/17 20:07 Dose: 7.5 mg Vit A/Vit C/Vit E/Selen/Cu/Zn/Lutei (Icaps Mv) 1 tab PO DAILY [facility] Last Admin: 11/19/17 08:59 Dose: 1 tab Discontinued Medications Acetaminophen (Tylenol) 650 mg PO NOW ONE Stop: 11/17/17 18:09 Last Admin: 11/17/17 18:40 Dose: 650 mg Acetaminophen (Tylenol) 325 mg PO ASDIRECTED PRN PRN Reason: Pain Albuterol/Ipratropium (Duoneb 3.0-0.5 Mg/3 Ml) 3 ml NEB ONETIME ONE Stop: 11/17/17 18:09 Last Admin: 11/17/17 18:16 Dose: 3 ml Denosumab (Prolia) 60 mg SUBCUT Q180D [facility] Last Admin: 11/18/17 19:43 Dose: Not Given Hydromorphone HCl (Dilaudid) 0.25 mg IVPUSH Q2H PRN PRN Reason: Pain (severe 7-10) Sodium Chloride (Normal Saline) 1,000 mls @ 50 mls/hr IV ASDIRECTED [facility] Last Infusion: 11/18/17 16:14 Dose: 15 mls/hr Levofloxacin/Dextrose 750 mg/ (Premix) 150 mls @ 100 mls/hr IV ONETIME ONE Stop: 11/17/17 20:10 Last Admin: 11/17/17 18:56 Dose: 100 mls/hr Magnesium Sulfate 2 gm/ Premix 50 mls @ 25 mls/hr IV ONETIME ONE Stop: 11/17/17 21:28 Last Admin: 11/17/17 19:42 Dose: 25 mls/hr Azithromycin 500 mg/ Sodium (Chloride) 250 mls @ 250 mls/hr IV Q24H DENITA Ceftriaxone Sodium 1 gm/ (Sodium Chloride) 100 mls @ 200 mls/hr IV Q24H DENITA Magnesium Sulfate 2 gm/ Premix 50 mls @ 50 mls/hr IV ONETIME ONE Stop: 11/17/17 22:29 Last Admin: 11/17/17 21:53 Dose: Not Given Azithromycin 500 mg/ Sodium (Chloride) 250 mls @ 250 mls/hr IV ASDIRECTED [facility] Levofloxacin/Dextrose 750 mg/ (Premix) 150 mls @ 100 mls/hr IV ONETIME ONE Stop: 11/18/17 23:58 Last Admin: 11/18/17 23:48 Dose: 100 mls/hr Iopamidol (Isovue-300 (61%)) 100 ml IVPUSH ONETIME ONE Stop: 11/18/17 08:43 Last Admin: 11/18/17 09:16 Dose: 60 ml Magnesium Oxide (Magnesium Oxide) 400 mg PO ONETIME ONE Stop: 11/19/17 08:31 Last Admin: 11/19/17 09:00 Dose: 400 mg Non-Formulary Medication (Nf Drug) 1,125 each PO ASDIRECTED [facility] Rifampin (Rifampin) 600 mg PO [id number] [facility] Rifampin (Rifampin) 600 mg PO ONETIME ONE Stop: 11/17/17 22:01 Last Admin: 11/17/17 22:55 Dose: Not Given Saccharomyces Boulardii (Florastor) 500 mg PO DAILY [facility] Sertraline HCl (Zoloft) 25 mg PO DAILY [facility] Last Admin: 11/18/17 09:34 Dose: Not Given Sodium Chloride (Saline Flush) 10 ml FLUSH ONETIME PRN PRN Reason: IV FLUSH Stop: 11/18/17 16:00 Last Admin: 11/18/17 09:17 Dose: 10 ml - Exam Quality Assessment: Reports: Supplemental Oxygen General: Reports: Alert, Oriented, Cooperative, No Acute Distress HEENT: Reports: Pupils Equal, Pupils Reactive, EOMI, Mucous Membr. Moist/[place] Neck: Reports: Supple, Trachea Midline, No JVD Lungs: Reports: Normal Respiratory Effort, Decreased Breath Sounds Cardiovascular: Reports: Regular Rate, Regular Rhythm, Bradycardia GI/Abdominal Exam: Normal Bowel Sounds, Soft, Non-Tender, No Organomegaly, No Distention, No Abnormal Bruit (Female) Exam: Deferred Rectal (Female) Exam: Deferred Back Exam: Reports: Normal Inspection, Decreased Range of Motion, Other ( kyphotic) Extremities: Normal Inspection, Normal Range of Motion, Non-Tender, No Pedal Edema, Normal Capillary Refill Skin: Reports: Warm, Dry, Intact Neurological: Reports: No New Focal Deficit Psy/Mental Status: Reports: Alert, Normal Affect, Normal Mood *Q Meaningful Use (DIS) - VTE *Q VTE Criteria *Q: - Stroke *Q Stroke Criteria *Q: - AMI *Q AMI Criteria *Q:
[2017-11-19] MEDS ORDERED: Albuterol 0.083% 2.5 MG/3 ML Neb Soln NEB SCH (15:00)
[2017-11-19 16:09] VITALS: BP 104/55
[2017-11-20] MEDS ORDERED: Levofloxacin 750 MG Tab PO SCH (09:00)
== END 2017-11-19 13:30 | disposition other institution (70) | DRG 194 ==
LOC: JD.ED 17:58 → JD.MS 20:59
PROVIDERS: ADMIT Internal Medicine; ATTEND Internal Medicine
DX: J18.9 Pneumonia, unspecified organism (principal); R09.02 Hypoxemia; J84.9 Interstitial pulmonary disease, unspecified; A31.9 Mycobacterial infection, unspecified; Z91.048 Other nonmedicinal substance allergy status; Z79.899 Other long term (current) drug therapy; J47.9 Bronchiectasis, uncomplicated; J98.2 Interstitial emphysema; J84.10 Pulmonary fibrosis, unspecified; E83.42 Hypomagnesemia; Z51.5 Encounter for palliative care; I10 Essential (primary) hypertension; E03.9 Hypothyroidism, unspecified; M40.209 Unspecified kyphosis, site unspecified; G25.0 Essential tremor; D50.9 Iron deficiency anemia, unspecified; M81.0 Age-related osteoporosis without current pathological fracture; F32.9 Major depressive disorder, single episode, unspecified; Z66 Do not resuscitate
CPT/HCPCS: 36415; 71045; 80053; 82553; 83605; 83735; 83880; 84484; 85025; 85610; 86140; 86738; 87040 ×2; 87070; 87205; 87641; 87804 ×2; 93005; 94640; 96361; 96365; 96366; 96368; 99285; A9270; J1956; J7040; 71260; 71260-26; 80048; 81001; 87486; 87581; 87633; 87798; 87899; 92610-GN; 93010; 94761; 97116-GP; 97162-GP; 97165-GO; 97530-GO; 97530-GP; J3475; J7050; Q9967

== ENCOUNTER 2018-05-13 17:44 | Inpatient (IN) | payer MEDICARE, OTHER, MEDICAID ==
[2018-05-13] MEDS ORDERED: Sodium Chloride 0.9% 10 ML Syringe FLUSH PRN (17:49)
[2018-05-13] MEDS ORDERED: cefTRIAXone 2 GM in Sodium Chloride 0.9% 100 ML IV ONE (17:51)
[2018-05-13] MEDS ORDERED: Albuterol/Ipratropium 3.0-0.5 MG/3 ML Neb Soln NEB ONE (17:51)
[2018-05-13] MEDS ORDERED: Acetaminophen 650 MG Supp RECTAL ONE (17:52)
[2018-05-13] MEDS: Sodium Chloride 0.9% 1,000 ML IV SCH (18:30)
--- NOTE | 2018-05-13 19:14 | EDM.PDOC ---
ED HPI GENERAL MEDICAL PROBLEM - General Chief Complaint: Fever Stated Complaint: [facility] Time Seen by Provider: 05/13/18 17:49 Source of Information: Reports: Patient, EMS, Family, Snf Records History Limitations: Reports: No Limitations - History of Present Illness INITIAL COMMENTS - FREE TEXT/NARRATIVE: The patient presents by [facility] with a fever and cough. Originally the call went out for right sided weakness. When EMS arrived, that was not the case. The patient was shaking and was warm. They checked a temp and it was 106.9. She was cooled by taking off her sweater and giving her fluids. She was confused but moving all extremities. 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 She had been having a productive cough and Dr Candelaria doubled up her zithromax. She was doing good today and this all started about an hour before EMS was called. The patient has a productive cough , fever, chills, shortness of breath. She has no abdominal pain, nausea or vomiting. Onset: Gradual Duration: Day(s): Severity: Moderate Improves with: Reports: None Worsens with: Reports: None Associated Symptoms: Reports: Cough, Fever/Chills, Shortness of Breath. Denies : Chest Pain, Headaches, Nausea/Vomiting - Related Data Allergies Allergy/AdvReac Type Severity Reaction Status Date / Time grass pollen Allergy Not Listed Verified 05/13/18 18:50 mold Allergy Not Listed Verified 05/13/18 18:50 Home Meds: Home Meds Acetaminophen [Tylenol] 325 mg PO ASDIRECTED PRN 11/17/17 [History] Albuterol Sulfate 2.5 mg IH TID 11/17/17 [History] Calcium Carbonate/Vitamin D3 [Calcium 600 + Vit D Tablet] 1 each PO BID [History] Denosumab [Prolia] 60 mg SUBCUT Q180D 11/17/17 [History] Ferrous Sulfate 325 mg PO DAILY 11/17/17 [History] Fish Oil/[place]ward-3 Fatty Acids [Fish Oil 1,000 MG] 1 each PO DAILY 11/17/17 [ History] Hydrocortisone [Preparation H] 1 applic TP TID PRN 11/17/17 [History] I-Darnell With Lutein. 1 cap PO DAILY 11/17/17 [History] L.acidop,Vasquez,Lac,Rha/B.lac,Deon [Advanced Probiotic Capsule] 1 cap PO DAILY 11/17 [History] Levothyroxine [Synthroid] 88 mcg PO DAILY 11/17/17 [History] Lidocaine [Anecream] 1 applic TP Q6H PRN 11/17/17 [History] Mineral Oil/Petrolatum,White [Advanced Eye Relief Opth Oint] 1 applic EYEBOTH BEDTIME PRN 11/17/17 [History] Multivitamin with Minerals [Multivitamins with Minerals] 1 each PO DAILY [History] Olopatadine [Patanol 0.1% Ophth Soln] 1 drop EYEBOTH BID PRN 11/17/17 [History] Polyethylene Glycol 3350 [MiraLAX] 17 gm PO DAILY 11/17/17 [History] Primidone 50 mg PO DAILY 11/17/17 [History] Primidone 250 mg PO DAILY 11/17/17 [History] Propylene Glycol/Peg 400 [Systane 0.3-0.4% Eye Drops] 1 drop EYEBOTH TID [History] Sertraline [Zoloft] 25 mg PO DAILY 11/17/17 [History] amLODIPine Besylate [Norvasc] 2.5 mg PO DAILY 11/17/17 [History] guaiFENesin [Mucinex] 600 mg PO BID 11/17/17 [History] Past Medical History HEENT History: Reports: Hard of Hearing Other HEENT History: wears glasses Respiratory History: Reports: Bronchitis, Recurrent, Interstitial Lung Disease, Other (See Below) Other Respiratory History: Pt has mycobacterium avium and has an social insurance specialist in [place] who follows her for this Gastrointestinal History: Reports: Chronic Constipation [employer] History: Reports: Musculoskeletal History: Reports: Osteoporosis, Other (See Below) Other Musculoskeletal History: essential tremors Other Neuro History: Tremors Other Endocrine/Metabolic History: hypothyroidism Hematologic History: Reports: Anemia Dermatologic History: Reports: Other (See Below) Other Dermatologic History: basil cell carcinoma - Infectious Disease History Infectious Disease History: Reports: Other (See Below) Other Infectious Disease History: hx MAC infection, myobacterium avium intracellular infection - Past Surgical History Other HEENT Surgeries/Procedures: Hearing aid right ear only, battery was upon admission, family returned hearing aid to [place]. Social & Family History - Family History Family Medical History: Noncontributory - Tobacco Use Smoking Status *Q: Never Smoker Second Hand Smoke Exposure: Yes - Caffeine Use Caffeine Use: Reports: None Other Caffeine Use: unknown - Recreational Drug Use Recreational Drug Use: No - Living Situation & Occupation Living situation: Reports: , Extended Care Facility (Currently residing in) Occupation: Retired ([employer] ED ROS GENERAL - Review of Systems Review Of Systems: See Below Constitutional: Reports: Fever, Chills HEENT: Reports: No Symptoms Respiratory: Reports: Shortness of Breath, Cough Cardiovascular: Reports: No Symptoms Endocrine: Reports: No Symptoms GI/Abdominal: Reports: No Symptoms : Reports: No Symptoms ED EXAM, SEPSIS - Physical Exam Exam: See Below Exam Limited By: No Limitations General Appearance: Alert, No Apparent Distress Ears: Normal External Exam Nose: Normal Inspection Head: Atraumatic, Normocephalic Neck: Normal Inspection Respiratory/Chest: No Respiratory Distress, Rhonchi Cardiovascular: Regular Rate, Rhythm, No Edema, No Murmur GI/Abdominal Exam: Soft, Non-Tender, No Organomegaly, No Mass Back: Normal Inspection Extremities: Normal Inspection Neurological: Alert, Oriented, No Motor/Sensory Deficits Course - Vital Signs Last Recorded V/S: Last Vital Signs Temp 104.3 F H 05/13/18 18:24 Pulse 108 H 05/13/18 18:07 Resp 24 H 05/13/18 18:07 BP 135/68 05/13/18 18:07 Pulse Ox 98 05/13/18 18:40 - Orders/Labs/Meds Orders: Active Orders 24 hr Category Date Time Status Cardiac Monitoring [RC] . DIRECTED Care 05/13/18 17:49 Active Oxygen Therapy [RC] PRN Care 05/13/18 17:49 Active Peripheral IV Care [RC] . DIRECTED Care 05/13/18 17:50 Active RT Aerosol Therapy [RC] ASDIRECTED Care 05/13/18 17:52 Active Chest 1V Frontal [CR] Stat Exams 05/13/18 17:50 Taken Head wo Cont [CT] Stat Exams 05/13/18 17:55 Taken CULTURE BLOOD [BC] Stat Lab 05/13/18 18:12 Received CULTURE BLOOD [BC] Stat Lab 05/13/18 18:18 Received CULTURE SPUTUM + SMEAR [RM] Stat Lab 05/13/18 18:05 Results UA W/MICROSCOPIC [URIN] Stat Lab 05/13/18 18:25 Received Sodium Chloride 0.9% [Normal Saline] 1,000 ml Med 05/13/18 18:00 Active IV ASDIRECTED Sodium Chloride 0.9% [Normal Saline] 500 ml Med 05/13/18 19:16 Active IV .BOLUS Sodium Chloride 0.9% [Saline Flush] Med 05/13/18 17:49 Active 10 ml FLUSH ASDIRECTED PRN Blood Culture x2 Reflex Set [OM.PC] Stat Ot 05/13/18 17:50 Ordered Peripheral IV Insertion Adult [OM.PC] Stat Ot 05/13/18 17:49 Ordered Medication Orders Sodium Chloride (Normal Saline) 1,000 mls @ 125 mls/hr IV ASDIRECTED DENITA Last Admin: 05/13/18 18:30 Dose: 125 mls/hr Sodium Chloride (Normal Saline) 500 mls @ 1,000 mls/hr IV .BOLUS ONE Stop: 05/13/18 19:45 Sodium Chloride (Saline Flush) 10 ml FLUSH ASDIRECTED PRN PRN Reason: Keep Vein Open Last Admin: 05/13/18 18:39 Dose: 10 ml Labs: Laboratory Tests 05/13/18 05/13/18 05/13/18 Range/Units 18:12 18:12 18:12 WBC 14.45 H (3.98-10.04) K/mm3 RBC 3.09 L (3.98-5.22) M/mm3 Hgb 9.0 L (11.2-15.7) gm/L Hct 28.2 L (34.1-44.9) % MCV 91.3 (79.4-94.8) fl MCH 29.1 (25.6-32.2) pg MCHC 31.9 L (32.2-35.5) g/dl RDW Std Deviation 50.2 H (36.4-46.3) fL Plt Count 524 H (182-369) K/mm3 MPV 9.4 (9.4-12.3) fl Neut % (Auto) 83.6 H (34.0-71.1) % Lymph % (Auto) 7.4 L (19.3-51.7) % Dougherty % (Auto) 8.0 (4.7-12.5) % Eos % (Auto) 0.4 L (0.7-5.8) Baso % (Auto) 0.4 (0.1-1.2) % Neut # (Auto) 12.07 H (1.56-6.13) K/mm3 Lymph # (Auto) 1.07 L (1.18-3.74) K/mm3 Dougherty # (Auto) 1.16 H (0.24-0.36) K/mm3 Eos # (Auto) 0.06 (0.04-0.36) K/mm3 Baso # (Auto) 0.06 (0.01-0.08) K/mm3 Manual Slide Review Abnormal smear Sodium 135 L (136-145) mEq/L Potassium 4.3 (3.5-5.1) mEq/L Chloride 99 (98-107) mEq/L Carbon Dioxide 29 (21-32) mEq/L Anion Gap 11.3 (5-15) BUN 24 H (7-18) mg/dL Creatinine 0.9 (0.55-1.02) mg/dL Est Cr Clr Drug Dosing 34.69 mL/min Estimated GFR (MDRD) 59 (>60) mL/min BUN/Creatinine Ratio 26.7 H (14-18) Glucose 123 H (83-115) mg/dL Lactic Acid 0.6 (0.4-2.0) mmol/L Calcium 8.9 (8.5-10.1) mg/dL Total Bilirubin 0.2 (0.2-1.0) mg/dL AST 25 (15-37) U/L ALT 22 (14-59) U/L Alkaline Phosphatase 83 (46-116) U/L Troponin I < 0.017 (0.00-0.056) ng/mL C-Reactive Protein 17.8 H* (<1.0) mg/dL Total Protein 7.4 (6.4-8.2) g/dl Albumin 2.7 L (3.4-5.0) g/dl Globulin 4.7 gm/dL Albumin/Globulin Ratio 0.6 L (1-2) Meds: Medications Generic Name Dose Route Start Last Admin Trade Name Freq PRN Reason Stop Dose Admin Sodium Chloride 1,000 mls @ 125 mls/hr 05/13/18 18:00 05/13/18 18:30 Normal Saline IV 125 mls/hr ASDIRECTED DENITA Administration Sodium Chloride 500 mls @ 1,000 mls/hr 05/13/18 19:16 Normal Saline IV 05/13/18 19:45 .BOLUS ONE Sodium Chloride 10 ml 05/13/18 17:49 05/13/18 18:39 Saline Flush FLUSH 10 ml ASDIRECTED PRN Administration Keep Vein Open Discontinued Medications Generic Name Dose Route Start Last Admin Trade Name Janel PRN Reason Stop Dose Admin Acetaminophen 650 mg 05/13/18 17:52 05/13/18 18:24 Tylenol RECTAL 05/13/18 17:53 650 mg NOW ONE Administration Albuterol/Ipratropium 3 ml 05/13/18 17:51 05/13/18 18:01 Duoneb 3.0-0.5 Mg/3 Ml NEB 05/13/18 17:52 3 ml ONETIME ONE Administration Ceftriaxone Sodium 2 gm/ 100 mls @ 100 mls/hr 05/13/18 17:51 05/13/18 18:38 Sodium Chloride IV 05/13/18 18:50 100 mls/hr ONETIME ONE Administration - Re-Assessments/Exams Free Text/Narrative Re-Assessment/Exam: 05/13/18 19:14 A stoke alert was called and the patient went right to CT. The CT shows nothing acute. I ordered an IV NS, labs, UA, blood cultures, CXR and rocephin. Her CXR shows an infiltrate on the right side. Her temp here was 104. Her WBC was elevated at 14.45. Her Hgb was low at 9. Her platelets were elevated at 524. Her Na was a little low at 135. Her glucose was 123. Her CPR was 17.8. Her lactic acid was normal. She has pneumonia and sepsis. I feel she needs to be admitted. I called Dr Macias and he agreed to the admission. Departure - Departure Time of Disposition: 19:25 Disposition: Admitted As Inpatient 67 Condition: Serious Clinical Impression: Pneumonia Qualifiers: Pneumonia type: due to unspecified organism Laterality: right Lung location: upper lobe of lung Qualified Code(s): J18.1 - Lobar pneumonia, unspecified organism Sepsis Qualifiers: Sepsis type: sepsis due to unspecified organism Qualified Code(s): A41.9 - Sepsis, unspecified organism - Discharge Information *PRESCRIPTION DRUG MONITORING PROGRAM REVIEWED*: No *COPY OF PRESCRIPTION DRUG MONITORING REPORT IN PATIENT CARLOS: No Referrals: Ines Candelaria MD [Primary Care Provider] - Forms: ED Department Discharge - My Orders Last 24 Hours: My Active Orders 05/13/18 17:49 Cardiac Monitoring [RC] . DIRECTED Oxygen Therapy [RC] PRN Sodium Chloride 0.9% [Saline Flush] 10 ml FLUSH ASDIRECTED PRN Peripheral IV Insertion Adult [OM.PC] Stat 05/13/18 17:50 Peripheral IV Care [RC] . DIRECTED Chest 1V Frontal [CR] Stat Blood Culture x2 Reflex Set [OM.PC] Stat 05/13/18 17:52 RT Aerosol Therapy [RC] ASDIRECTED 05/13/18 17:55 Head wo Cont [CT] Stat 05/13/18 18:00 Sodium Chloride 0.9% [Normal Saline] 1,000 ml IV ASDIRECTED 05/13/18 18:05 CULTURE SPUTUM + SMEAR [RM] Stat 05/13/18 18:12 CULTURE BLOOD [BC] Stat 05/13/18 18:18 CULTURE BLOOD [BC] Stat 05/13/18 18:25 UA W/MICROSCOPIC [URIN] Stat 05/13/18 19:16 Sodium Chloride 0.9% [Normal Saline] 500 ml IV .BOLUS - Assessment/Plan Last 24 Hours: My Active Orders 05/13/18 17:49 Cardiac Monitoring [RC] . DIRECTED Oxygen Therapy [RC] PRN Sodium Chloride 0.9% [Saline Flush] 10 ml FLUSH ASDIRECTED PRN Peripheral IV Insertion Adult [OM.PC] Stat 05/13/18 17:50 Peripheral IV Care [RC] . DIRECTED Chest 1V Frontal [CR] Stat Blood Culture x2 Reflex Set [OM.PC] Stat 05/13/18 17:52 RT Aerosol Therapy [RC] ASDIRECTED 05/13/18 17:55 Head wo Cont [CT] Stat 05/13/18 18:00 Sodium Chloride 0.9% [Normal Saline] 1,000 ml IV ASDIRECTED 05/13/18 18:05 CULTURE SPUTUM + SMEAR [RM] Stat 05/13/18 18:12 CULTURE BLOOD [BC] Stat 05/13/18 18:18 CULTURE BLOOD [BC] Stat 05/13/18 18:25 UA W/MICROSCOPIC [URIN] Stat 05/13/18 19:16 Sodium Chloride 0.9% [Normal Saline] 500 ml IV .BOLUS
[2018-05-13] MEDS ORDERED: Sodium Chloride 0.9% 500 ML IV ONE (19:16)
[2018-05-13] MEDS ORDERED: Acetaminophen 325 MG Tab PO PRN (22:32)
[2018-05-13] MEDS ORDERED: OLOPATADINE EYEBOTH PRN (22:32)
[2018-05-13] MEDS ORDERED: Lanolin/Mineral Oil/Petrolatum Ophth Oint 3.5 GM Tube EYEBOTH PRN (22:32)
[2018-05-13] MEDS ORDERED: Lidocaine 4% Crm 5 Gm with Transparent Dressing Kit TOP PRN (22:32)
[2018-05-13] MEDS ORDERED: Hydrocortisone 1% Crm 30 GM Tube TOP PRN (22:32)
[2018-05-13] MEDS ORDERED: Metoprolol Tartrate 5 MG/5 ML SDV IVPUSH PRN (22:37)
[2018-05-13] MEDS ORDERED: hydrALAZINE 20 MG/ML SDV IVPUSH PRN (22:37)
[2018-05-13] MEDS ORDERED: LORazepam 2 MG/ML SDV IVPUSH PRN (22:37)
[2018-05-13] MEDS ORDERED: LORazepam 2 MG/ML SDV IV PRN (22:44)
[2018-05-13] MEDS ORDERED: Ondansetron 4 MG/2 ML SDV IV PRN (22:44)
[2018-05-13] MEDS ORDERED: Docusate Sodium 100 MG Cap PO PRN (22:44)
[2018-05-13] MEDS ORDERED: Acetaminophen/HYDROcodone 325-5 MG Tab PO PRN (22:44)
[2018-05-13] MEDS ORDERED: Bisacodyl 5 MG Tab PO PRN (22:44)
[2018-05-13] MEDS ORDERED: Promethazine 6.25 MG in Sodium Chloride 0.9% 50 ML IV PRN (22:44)
[2018-05-13] MEDS ORDERED: HYDROmorphone 0.5 MG/0.5 ML SYRINGE IVPUSH PRN (22:44)
[2018-05-13] MEDS ORDERED: Non-Formulary Medication 1 Each (Denosumab [Prolia] 60 MG) SUBCUT SCH (22:45)
[2018-05-14] MEDS: Sodium Chloride 0.9% 1,000 ML IV SCH ×2 (00:08→13:44)
[2018-05-14] MEDS ORDERED: Levofloxacin/Dextrose 5%-Water 750 MG in Premix Bag 1 BAG IV SCH (01:00)
[2018-05-14] MEDS: Acetaminophen 325 MG Tab PO PRN ×3 (04:22→21:13)
[2018-05-14] MEDS: Levothyroxine 88 MCG Tab PO SCH (06:02)
--- NOTE | 2018-05-14 06:58 | CT ---
Head CT Technique: Multiple axial sections through the brain were obtained. Intravenous contrast was not utilized. Comparison: No prior intracranial imaging. Findings: Ventricles along with basal cisterns and sulci over the convexities are mildly prominent. Diminished density is noted within the periventricular white matter compatible with small vessel ischemic demyelination change. Incidental basal ganglia calcification is noted. No other abnormal parenchymal densities are seen. No evidence of intracranial hemorrhage. No midline shift or mass effect is seen. Bone window settings were reviewed which show mild atherosclerotic calcification within the carotid siphon. No acute calvarial abnormality is seen. Impression: 1. Senescent change. No acute intracranial abnormality is identified. Diagnostic code #2 I agree with preliminary report issued by [employer] ([facility] preliminary report dictated on 05/13/18, 7:05 PM Central Time)
--- NOTE | 2018-05-14 06:58 | CR ---
Chest: Portable view of the chest was obtained. Comparison: Prior chest x-ray of 11/19/17. Pleural thickening and scattered parenchymal densities are noted within the right chest which appear to be chronic. Decreased density is noted within the left base from prior exam. Lung markings increased within the left chest which appear stable. No acute parenchymal changes appreciated. Bony structures are osteopenic. Heart is not enlarged. Impression: 1. Multiple findings which appear to be chronic. Nothing acute is definitely seen. Diagnostic code #3
--- NOTE | 2018-05-14 07:02 | PCM.HP ---
H&P History of Present Illness - General Date of Service: 05/14/18 Admit Problem/Dx: Admission Diagnosis/Problem Admission Diagnosis/Problem Pneumonia Source of Information: Patient, Old Records, Provider, RN, RN Notes Reviewed History Limitations: Reports: No Limitations - History of Present Illness Initial Comments - Free Text/Narative: Sena Rodriguez is a 88 yo female ho was brought in by local EMS from [facility] with a fever and cough. I am also reportedly originally called for right-sided weakness and on arrival found the patient was shakingand warm. He checked It was 106.9 They removed her sweater and gave her fluids in an attempt to decrease this temp. They found she was confused but was moving all extremities. She has history of MAC and is reportedly on Zithromax at alternating on and off dosages, although her pharmacy reports she has not filled this since March. Apparently after she began having a productive cough. It is reported Dr. Candelaria told her to double her Zithromax dose, although it is unclear if this is accurate. She had been doing well up until about an hour before EMS was called. She has a productive cough, fever, chills, and shortness of breath, however no abdominal pain nausea or vomiting. In the ED temp was quite high at 104.3 rectally. Pulse is 108. Respirations 24. Blood pressure is 135/68. Pulse ox 98%. Labs are obtained: WBC elevated at 14.45. Hemoglobin low at 9.0. Hematocrit low at 28.2. She was normocytic. Platelets are high at 524,000. Neutrophils are elevated at 83.6%. Sodium is low at 135. Potassium 4.3. Chloride 99. Carbon dioxide 29. Anion gap 11.3. BUN is 24. Creatinine 0.9. EGFR is 59. Glucose is high at 123. Lactic acid 0.6. Calcium 8.9. AST is 25, ALT 22, alkaline phosphatase 83. Troponin is negative at less than 0.017. CRP is very high at 17.8. Protein 7.4. Albumin is slightly low at 2.7. She is given a 500 mL saline bolus and started on normal saline at 125 mils an hour. She's given 650 rectal Tylenol and a DuoNeb. 2 g Rocephin is started IV. On arrival stroke alert was called and she was sent to CT. Head CT showed nothing acute. Chest x-ray is obtained and interpreted by Dr. Carroll as "pleural thickening and scattered parietal densities noted within the right chest which appear to be chronic. Decreased densities noted with left base from prior exam. Lung markings increased with a left chest which appear stable. No acute parenchymal changes appreciated. 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 She is a DNR. Her PCP is Dr. Candelaria. She was subsequently admitted to the medical floor. - Related Data Allergies/Adverse Reactions: Allergies Allergy/AdvReac Type Severity Reaction Status Date / Time grass pollen Allergy Not Listed Verified 05/13/18 18:50 mold Allergy Not Listed Verified 05/13/18 18:50 Home Medications: Home Meds Acetaminophen [Tylenol] 325 mg PO Q6HR PRN 11/17/17 [History] Albuterol Sulfate 2.5 mg IH TID 11/17/17 [History] Calcium Carbonate/Vitamin D3 [Calcium 600 + Vit D Tablet] 1 each PO BID [History] Denosumab [Prolia] 60 mg SUBCUT Q180D 11/17/17 [History] Ferrous Sulfate 325 mg PO DAILY 11/17/17 [History] Fish Oil/[place]-3 Fatty Acids [Fish Oil 1,000 MG] 1 each PO DAILY 11/17/17 [ History] Hydrocortisone [Preparation H] 1 applic TP TID PRN 11/17/17 [History] I-Darnell With Lutein. 1 cap PO DAILY 11/17/17 [History] L.acidop,Vasquez,Lac,Rha/B.lac,Deon [Advanced Probiotic Capsule] 1 cap PO DAILY 11/17 [History] Levothyroxine [Synthroid] 88 mcg PO DAILY 11/17/17 [History] Lidocaine [Anecream] 1 applic TP Q6H PRN 11/17/17 [History] Mineral Oil/Petrolatum,White [Advanced Eye Relief Opth Oint] 1 applic EYEBOTH BEDTIME PRN 11/17/17 [History] Multivitamin with Minerals [Multivitamins with Minerals] 1 each PO DAILY [History] Olopatadine [Patanol 0.1% Ophth Soln] 1 drop EYEBOTH BID PRN 11/17/17 [History] Polyethylene Glycol 3350 [MiraLAX] 17 gm PO DAILY 11/17/17 [History] Primidone 50 mg PO BEDTIME 11/17/17 [History] Primidone 250 mg PO BEDTIME 11/17/17 [History] Propylene Glycol/Peg 400 [Systane 0.3-0.4% Eye Drops] 1 drop EYEBOTH TID [History] Sertraline [Zoloft] 25 mg PO DAILY 11/17/17 [History] amLODIPine Besylate [Norvasc] 2.5 mg PO DAILY 11/17/17 [History] guaiFENesin [Mucinex] 600 mg PO BID 11/17/17 [History] Azithromycin [Zithromax] 250 mg PO DAILY 05/13/18 [History] Past Medical History HEENT History: Reports: Hard of Hearing Other HEENT History: wears glasses Respiratory History: Reports: Bronchitis, Recurrent, Interstitial Lung Disease, Other (See Below) Other Respiratory History: Pt has mycobacterium avium and has an learning development specialist in [place] who follows her for this Gastrointestinal History: Reports: Chronic Constipation Genitourinary History: Reports: UTI, Recurrent 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: Musculoskeletal History: Reports: Osteoporosis, Other (See Below) Other Musculoskeletal History: essential tremors Other Neuro History: Tremors Psychiatric History: Reports: Depression Other Endocrine/Metabolic History: hypothyroidism Hematologic History: Reports: Anemia Oncologic (Cancer) History: Reports: Basal Cell Carcinoma Dermatologic History: Reports: Other (See Below) Other Dermatologic History: basil cell carcinoma - Infectious Disease History Infectious Disease History: Reports: Other (See Below) Other Infectious Disease History: hx MAC infection, myobacterium avium intracellular infection - Past Surgical History Other HEENT Surgeries/Procedures: Hearing aid left ear only. Social & Family History - Family History Family Medical History: Noncontributory - Tobacco Use Smoking Status *Q: Never Smoker Second Hand Smoke Exposure: No - Caffeine Use Caffeine Use: Reports: Coffee Other Caffeine Use: unknown - Recreational Drug Use Recreational Drug Use: No - Living Situation & Occupation Living situation: Reports: , Extended Care Facility (Currently residing in) Occupation: Retired ([email or web address] H&P Review of Systems - Review of Systems: Review Of Systems: See Below General: Reports: Fever, Chills, Malaise, Weakness, Fatigue HEENT: Reports: Other (Ear pain from where her NC makes contact. Karli reports patient has history of this. ). Denies: Post Nasal Drip, Sore Throat Pulmonary: Reports: Shortness of Breath, Cough, Sputum. Denies: Pleuritic Chest Pain Cardiovascular: Reports: Dyspnea on Exertion. Denies: Chest Pain, Palpitations , Lightheadedness Gastrointestinal: Reports: No Symptoms. Denies: Abdominal Pain, Constipation, Diarrhea, Nausea, Vomiting Genitourinary: Reports: No Symptoms. Denies: Dysuria, Frequency, Burning, Pain Musculoskeletal: Reports: No Symptoms Skin: Reports: No Symptoms Psychiatric: Reports: No Symptoms Neurological: Reports: Tremors (Chronic). Denies: Confusion Hematologic/Lymphatic: Reports: No Symptoms Immunologic: Reports: No Symptoms Exam - Exam Exam: See Below - Vital Signs Vital Signs: Last Vital Signs Temp 97.7 F 05/14/18 03:45 Pulse 73 05/14/18 03:30 Resp 14 05/14/18 03:30 BP 135/81 05/14/18 03:30 Pulse Ox 100 05/14/18 03:30 Weight: 108 lb 8 oz - Exam Quality Assessment: Supplemental Oxygen, DVT Prophylaxis General: Alert, Oriented, Cooperative. No: Mild Distress HEENT: Conjunctiva Clear, EACs Clear, EOMI, Hearing Intact, Mucosa Moist & Harrells , Nares Patent, Normal Nasal Septum, Posterior Pharynx Clear, PERRLA Neck: Supple, Trachea Midline Lungs: Normal Respiratory Effort, Decreased Breath Sounds, Rhonchi Cardiovascular: Regular Rate, Regular Rhythm GI/Abdominal Exam: Normal Bowel Sounds, Soft, Non-Tender, No Distention, No Abnormal Bruit (Female) Exam: Deferred Rectal (Female) Exam: Deferred Back Exam: Normal Inspection, Full Range of Motion Extremities: Normal Inspection, Normal Range of Motion, Non-Tender, No Pedal Edema, Normal Capillary Refill Peripheral Pulses: 2+: Radial (L), Radial (R), Dorsalis Pedis (L), Dorsalis Pedis (R) Skin: Warm, Dry, Intact Neurological: Cranial Nerves Intact (grossly) Neuro Extensive - Mental Status: Alert, Oriented x3, Normal Mood/Affect, Normal Cognition Psychiatric: Alert, Normal Affect, Normal Mood - Patient Data Lab Results Last 24 hrs: Laboratory Results - last 24 hr 05/13/18 05/13/18 05/13/18 Range/Units 18:12 18:12 18:12 WBC 14.45 H (3.98-10.04) K/mm3 RBC 3.09 L (3.98-5.22) M/mm3 Hgb 9.0 L (11.2-15.7) gm/L Hct 28.2 L (34.1-44.9) % MCV 91.3 (79.4-94.8) fl MCH 29.1 (25.6-32.2) pg MCHC 31.9 L (32.2-35.5) g/dl RDW Std Deviation 50.2 H (36.4-46.3) fL Plt Count 524 H (182-369) K/mm3 MPV 9.4 (9.4-12.3) fl Neut % (Auto) 83.6 H (34.0-71.1) % Lymph % (Auto) 7.4 L (19.3-51.7) % Logan % (Auto) 8.0 (4.7-12.5) % Eos % (Auto) 0.4 L (0.7-5.8) Baso % (Auto) 0.4 (0.1-1.2) % Neut # (Auto) 12.07 H (1.56-6.13) K/mm3 Lymph # (Auto) 1.07 L (1.18-3.74) K/mm3 Logan # (Auto) 1.16 H (0.24-0.36) K/mm3 Eos # (Auto) 0.06 (0.04-0.36) K/mm3 Baso # (Auto) 0.06 (0.01-0.08) K/mm3 Manual Slide Review Abnormal smear Sodium 135 L (136-145) mEq/L Potassium 4.3 (3.5-5.1) mEq/L Chloride 99 (98-107) mEq/L Carbon Dioxide 29 (21-32) mEq/L Anion Gap 11.3 (5-15) BUN 24 H (7-18) mg/dL Creatinine 0.9 (0.55-1.02) mg/dL Est Cr Clr Drug Dosing 34.69 mL/min Estimated GFR (MDRD) 59 (>60) mL/min BUN/Creatinine Ratio 26.7 H (14-18) Glucose 123 H (83-115) mg/dL Lactic Acid 0.6 (0.4-2.0) mmol/L Calcium 8.9 (8.5-10.1) mg/dL Total Bilirubin 0.2 (0.2-1.0) mg/dL AST 25 (15-37) U/L ALT 22 (14-59) U/L Alkaline Phosphatase 83 (46-116) U/L Troponin I < 0.017 (0.00-0.056) ng/mL C-Reactive Protein 17.8 H* (<1.0) mg/dL Total Protein 7.4 (6.4-8.2) g/dl Albumin 2.7 L (3.4-5.0) g/dl Globulin 4.7 gm/dL Albumin/Globulin Ratio 0.6 L (1-2) Urine Color (Yellow) Urine Appearance (Clear) Urine pH (5.0-8.0) Ur Specific [place] (1.005-1.030) Urine Protein (Negative) Urine Glucose (UA) (Negative) Urine Ketones (Negative) Urine Occult Blood (Negative) Urine Nitrite (Negative) Urine Bilirubin (Negative) Urine Urobilinogen (0.2-1.0) Ur Leukocyte Esterase (Negative) Urine RBC (0-5) /hpf Urine WBC (0-5) /hpf Ur Epithelial Cells (0-5) /hpf Urine Bacteria (FEW) /hpf Urine Mucus (FEW) /hpf MRSA (PCR) 05/13/18 05/13/18 Range/Units 18:25 21:10 WBC (3.98-10.04) K/mm3 RBC (3.98-5.22) M/mm3 Hgb (11.2-15.7) gm/L Hct (34.1-44.9) % MCV (79.4-94.8) fl MCH (25.6-32.2) pg MCHC (32.2-35.5) g/dl RDW Std Deviation (36.4-46.3) fL Plt Count (182-369) K/mm3 MPV (9.4-12.3) fl Neut % (Auto) (34.0-71.1) % Lymph % (Auto) (19.3-51.7) % Logan % (Auto) (4.7-12.5) % Eos % (Auto) (0.7-5.8) Baso % (Auto) (0.1-1.2) % Neut # (Auto) (1.56-6.13) K/mm3 Lymph # (Auto) (1.18-3.74) K/mm3 Logan # (Auto) (0.24-0.36) K/mm3 Eos # (Auto) (0.04-0.36) K/mm3 Baso # (Auto) (0.01-0.08) K/mm3 Manual Slide Review Sodium (136-145) mEq/L Potassium (3.5-5.1) mEq/L Chloride (98-107) mEq/L Carbon Dioxide (21-32) mEq/L Anion Gap (5-15) BUN (7-18) mg/dL Creatinine (0.55-1.02) mg/dL Est Cr Clr Drug Dosing mL/min Estimated GFR (MDRD) (>60) mL/min BUN/Creatinine Ratio (14-18) Glucose (83-115) mg/dL Lactic Acid (0.4-2.0) mmol/L Calcium (8.5-10.1) mg/dL Total Bilirubin (0.2-1.0) mg/dL AST (15-37) U/L ALT (14-59) U/L Alkaline Phosphatase (46-116) U/L Troponin I (0.00-0.056) ng/mL C-Reactive Protein (<1.0) mg/dL Total Protein (6.4-8.2) g/dl Albumin (3.4-5.0) g/dl Globulin gm/dL Albumin/Globulin Ratio (1-2) Urine Color Yellow (Yellow) Urine Appearance Clear (Clear) Urine pH 6.0 (5.0-8.0) Ur Specific [place] 1.025 (1.005-1.030) Urine Protein 1+ H (Negative) Urine Glucose (UA) Negative (Negative) Urine Ketones Negative (Negative) Urine Occult Blood Negative (Negative) Urine Nitrite Negative (Negative) Urine Bilirubin Negative (Negative) Urine Urobilinogen 0.2 (0.2-1.0) Ur Leukocyte Esterase Negative (Negative) Urine RBC 0-5 (0-5) /hpf Urine WBC 0-5 (0-5) /hpf Ur Epithelial Cells 0-5 (0-5) /hpf Urine Bacteria Few (FEW) /hpf Urine Mucus Moderate H (FEW) /hpf MRSA (PCR) Negative Result Diagrams: 05/14/18 13:35 05/14/18 06:45 Javan Results Last 24 hrs: Microbiology 05/13/18 18:05 Gram Stain - Preliminary Sputum - Expectorated - Problem List (1) Pneumonia SNOMED Code(s): 087097490 ICD Code: J18.9 - PNEUMONIA, UNSPECIFIED ORGANISM Status: Acute Priority : High Current Visit: Yes Qualifiers: Pneumonia type: due to unspecified organism Laterality: right Lung location: upper lobe of lung Qualified Code(s): J18.1 - Lobar pneumonia, unspecified organism (2) Hypoxia SNOMED Code(s): 851179197 ICD Code: R09.02 - HYPOXEMIA Status: Acute Priority: High Current Visit : Yes (3) Interstitial lung disease SNOMED Code(s): 083691638 ICD Code: J84.9 - INTERSTITIAL PULMONARY DISEASE, UNSPECIFIED Status: Chronic Priority: High Current Visit: Yes (4) Mycobacterium avium complex SNOMED Code(s): 520716154 ICD Code: A31.0 - PULMONARY MYCOBACTERIAL INFECTION Status: Chronic Priority: High Current Visit: Yes (5) Essential tremor SNOMED Code(s): 913294093 ICD Code: G25.0 - ESSENTIAL TREMOR Status: Chronic Priority: Low Current Visit: No (6) Hypothyroidism SNOMED Code(s): 07239595 ICD Code: E03.9 - HYPOTHYROIDISM, UNSPECIFIED Status: Chronic Priority: Low Current Visit: No Qualifiers: Hypothyroidism type: unspecified Qualified Code(s): E03.9 - Hypothyroidism , unspecified (7) Bronchiectasis SNOMED Code(s): 84145024 ICD Code: J47.9 - BRONCHIECTASIS, UNCOMPLICATED Status: Chronic Priority : High Current Visit: Yes Qualifiers: Bronchiectasis type: with acute lower respiratory infection Qualified Code( s): J47.0 - Bronchiectasis with acute lower respiratory infection Problem List Initiated/Reviewed/Updated: Yes Orders Last 24hrs: Active Orders 24 hr Category Date Time Status Patient Status [ADT] Routine ADT 05/13/18 20:20 Active Cardiac Monitoring [RC] . DIRECTED Care 05/13/18 17:49 Active Flutter Valve Therapy [RT Chest Physiotherapy] [RC] Care 05/13/18 22:43 Active ASDIRECTED Height and Weight [RC] DAILY Care 05/13/18 22:44 Active Incentive Spirometry [RT Incentive Spirometry] [RC] Care 05/13/18 22:43 Active Q2HWA Intake and Output [RC] QSHIFT Care 05/13/18 22:44 Active Oxygen Therapy [RC] PRN Care 05/13/18 22:44 Active Peripheral IV Care [RC] Q2HR Care 05/13/18 17:50 Active Pulse Oximetry [RC] PRN Care 05/13/18 22:45 Active RT Aerosol Therapy [RC] ASDIRECTED Care 05/13/18 22:47 Active Up With Assistance [RC] ASDIRECTED Care 05/13/18 22:44 Active Up ad Camille [RC] ASDIRECTED Care 05/13/18 22:44 Active VTE/DVT Education [RC] PER UNIT ROUTINE Care 05/13/18 22:44 Active Vital Signs [RC] Q4HR Care 05/13/18 22:44 Active Consult to Case Management/Heading Matcher And Assembler [CONS] Cons 05/13/18 22:44 Active Routine Consult to Spiritual Care [CONS] Routine Cons 05/13/18 22:44 Active OT Evaluation and Treatment [CONS] Routine Cons 05/13/18 22:44 Active PT Evaluation and Treatment [CONS] Routine Cons 05/13/18 22:44 Active Respiratory Care Assess and Treatment [CONS] Routine Cons 05/13/18 22:44 Active Regular Diet [DIET] Diet 05/14/18 Breakfast Active BASIC METABOLIC PANEL,BMP [CHEM] AM Lab 05/14/18 05:11 Ordered BASIC METABOLIC PANEL,BMP [CHEM] AM Lab 05/15/18 05:11 Ordered BASIC METABOLIC PANEL,BMP [CHEM] AM Lab 05/16/18 05:11 Ordered BASIC METABOLIC PANEL,BMP [CHEM] AM Lab 05/17/18 05:11 Ordered BASIC METABOLIC PANEL,BMP [CHEM] AM Lab 05/18/18 05:11 Ordered C-REACTIVE PROTEIN [CHEM] AM Lab 05/14/18 05:11 Ordered C-REACTIVE PROTEIN [CHEM] AM Lab 05/15/18 05:11 Ordered C-REACTIVE PROTEIN [CHEM] AM Lab 05/16/18 05:11 Ordered C-REACTIVE PROTEIN [CHEM] AM Lab 05/17/18 05:11 Ordered C-REACTIVE PROTEIN [CHEM] AM Lab 05/18/18 05:11 Ordered CBC WITH AUTO DIFF [HEME] AM Lab 05/14/18 05:11 Ordered CBC WITH AUTO DIFF [HEME] AM Lab 05/15/18 05:11 Ordered CBC WITH AUTO DIFF [HEME] AM Lab 05/16/18 05:11 Ordered CBC WITH AUTO DIFF [HEME] AM Lab 05/17/18 05:11 Ordered CBC WITH AUTO DIFF [HEME] AM Lab 05/18/18 05:11 Ordered CULTURE BLOOD [BC] Stat Lab 05/13/18 18:12 Received CULTURE BLOOD [BC] Stat Lab 05/13/18 18:18 Received CULTURE SPUTUM + SMEAR [RM] Stat Lab 05/13/18 18:05 Results MAGNESIUM [CHEM] AM Lab 05/14/18 05:11 Ordered MAGNESIUM [CHEM] AM Lab 05/15/18 05:11 Ordered MAGNESIUM [CHEM] AM Lab 05/16/18 05:11 Ordered MAGNESIUM [CHEM] AM Lab 05/17/18 05:11 Ordered MAGNESIUM [CHEM] AM Lab 05/18/18 05:11 Ordered MYCOPLASMA PNEUMONIAE IGM AB [CHEM] Stat Lab 05/13/18 22:42 Ordered STREP PNEUMONIAE ANTIGEN [MREF] Stat Lab 05/13/18 22:42 Received Acetaminophen [Tylenol] Med 05/13/18 22:32 Pending 325 mg PO ASDIRECTED PRN Acetaminophen [Tylenol] Med 05/13/18 23:17 Active 650 mg PO Q4H PRN Albuterol/Ipratropium [DuoNeb 3.0-0.5 MG/3 ML] Med 05/13/18 22:44 Active 3 ml NEB Q4H PRN Azithromycin [Zithromax] 250 mg Med 05/14/18 09:00 Pending Sodium Chloride 0.9% [Normal Saline] 250 ml IV BID Bisacodyl [Dulcolax] Med 05/13/18 22:44 Active 5 mg PO DAILY PRN Calcium Carbonate/Vitamin D3 [Calcium Carbonate/Vitamin Med 05/14/18 09:00 Active D 600 MG-200 Unit] 1 tab PO BID Docusate Sodium [Colace] Med 05/13/18 22:44 Active 100 mg PO BID PRN Docusate Sodium/Sennosides [Senna Plus] Med 05/13/18 22:44 Active 1 tab PO BID PRN Ferrous Sulfate Med 05/14/18 09:00 Active 325 mg PO DAILY Fish Oil/[place]-3 Fatty Acids [Fish Oil] Med 05/14/18 09:00 Active 1 gm PO DAILY HYDROmorphone [Dilaudid] Med 05/13/18 22:44 Active 0.25 mg IVPUSH Q2H PRN Hydrocortisone [Hydrocortisone 1% Crm] Med 05/13/18 22:32 Active 0 gm TOP TID PRN Hypromellose [Isopto Tears 0.5% Ophth Soln] Med 05/14/18 09:00 Active 0 ml EYEBOTH TID LORazepam [Ativan] Med 05/13/18 22:44 Active 0.5 mg IV Q6H PRN LORazepam [Ativan] Med 05/13/18 22:37 Active 2 mg IVPUSH Q4H PRN Levofloxacin/Dextrose 5%-Water [Levaquin in D5W 750 MG/ Med 05/14/18 01:00 Active 150 ML] 750 mg Premix Bag 1 bag IV Q24H Levothyroxine [Synthroid] Med 05/14/18 06:00 Active 88 mcg PO ACBREAKFAST Lidocaine 4% [LMX 4 Cream with Tegaderm] Med 05/13/18 22:32 Active 1 each TOP Q6H PRN Magnesium Rep Pharmacy to Dose [Pharmacy to Dose - Med 05/13/18 22:45 Pending Magnesium Replacement] 1 dose .XX ASDIRECTED Metoprolol Tartrate [Lopressor] Med 05/13/18 22:37 Active 5 mg IVPUSH Q4H PRN Mineral Oil/Petrolatum,White [Soothe Night Time Lub Eye Med 05/13/18 22:32 Pending Oint] 1 applic EYEBOTH BEDTIME PRN Multivitamins,Therapeutic [Thera] Med 05/14/18 09:00 Active 1 each PO DAILY Multivitamins/Min/FA/Lut/Zeax [ICaps MV] Med 05/14/18 09:00 Active 1 tab PO DAILY Olopatadine Med 05/13/18 22:32 Pending 1 drop EYEBOTH BID PRN Ondansetron [Zofran] Med 05/13/18 22:44 Active 4 mg IV Q6H PRN Polyethylene Glycol 3350 [MiraLAX] Med 05/14/18 09:00 Active 17 gm PO DAILY Potassium Rep Pharmacy to Dose [Pharmacy to Dose - Med 05/13/18 22:45 Pending Potassium Replacement] 1 dose .XX ASDIRECTED Primidone [Mysoline] Med 05/14/18 09:00 Active 250 mg PO DAILY Primidone [Mysoline] Med 05/14/18 09:00 Active 50 mg PO DAILY Promethazine [Phenergan] 6.25 mg Med 05/13/18 22:44 Active Sodium Chloride 0.9% [Normal Saline] 50 ml IV Q6H Saccharomyces Boulardii [Florastor] Med 05/14/18 09:00 Active 250 mg PO DAILY Sertraline [Zoloft] Med 05/14/18 09:00 Active 25 mg PO DAILY Sodium Chloride 0.9% [Normal Saline] 1,000 ml Med 05/13/18 18:00 Active IV ASDIRECTED Sodium Chloride 0.9% [Saline Flush] Med 05/13/18 17:49 Active 10 ml FLUSH ASDIRECTED PRN Temazepam [Restoril] Med 05/13/18 22:44 Active 7.5 mg PO BEDTIME PRN guaiFENesin [Mucinex] Med 05/14/18 09:00 Active 600 mg PO BID hydrALAZINE [Apresoline] Med 05/13/18 22:37 Active 10 mg IVPUSH Q4H PRN Antiembolic Hose [OM.PC] Per Unit Routine Oth 05/13/18 22:45 Ordered Blood Culture x2 Reflex Set [OM.PC] Stat Oth 05/13/18 17:50 Ordered Peripheral IV Insertion Adult [OM.PC] Stat Oth 05/13/18 17:49 Ordered Resuscitation Status Routine Resus Stat 05/13/18 22:44 Ordered Medication Orders Acetaminophen (Tylenol) 325 mg PO ASDIRECTED PRN PRN Reason: Pain Acetaminophen (Tylenol) 650 mg PO Q4H PRN PRN Reason: Pain (mild 1-3) Last Admin: 05/14/18 04:22 Dose: 650 mg Albuterol/Ipratropium (Duoneb 3.0-0.5 Mg/3 Ml) 3 ml NEB Q4H PRN PRN Reason: Shortness Of Breath/wheezing Artificial Tears (Isopto Tears 0.5% Ophth Soln) [address] [facility] Bisacodyl (Dulcolax) 5 mg PO DAILY PRN PRN Reason: Constipation Calcium Carbonate (Calcium Carbonate/Vitamin D 600 Mg-200 Unit) [address] [facility] Docusate Sodium (Colace) 100 mg PO BID PRN PRN Reason: Constipation Ferrous Sulfate (Ferrous Sulfate) [address] [facility] Fish Oil (Fish Oil) [address] [facility] Guaifenesin (Mucinex) [address] [facility] Hydralazine HCl (Apresoline) 10 mg IVPUSH Q4H PRN PRN Reason: Hypertension Hydrocortisone (Hydrocortisone 1% Crm) 0 gm TOP TID PRN PRN Reason: Hemorrhoids Hydromorphone HCl (Dilaudid) 0.25 mg IVPUSH Q2H PRN PRN Reason: Pain (severe 7-10) Sodium Chloride (Normal Saline) 1,000 mls @ 75 mls/hr IV ASDIRECTED [facility] Last Admin: 05/14/18 00:08 Dose: 75 mls/hr Infusion: 05/14/18 00:08 Dose: 125 mls/hr Admin: 05/13/18 18:30 Dose: 125 mls/hr Azithromycin 250 mg/ Sodium (Chloride) 250 mls @ 250 mls/hr IV BID [facility] Levofloxacin/Dextrose 750 mg/ (Premix) 150 mls @ 100 mls/hr IV Q24H [facility] Last Admin: 05/14/18 01:07 Dose: 100 mls/hr Promethazine HCl 6.25 mg/ (Sodium Chloride) 50.25 mls @ 100 mls/hr IV Q6H PRN PRN Reason: Nausea/Vomiting Levothyroxine Sodium (Synthroid) [address] [facility] Last Admin: 05/14/18 06:02 Dose: 88 mcg Lidocaine HCl (Lmx 4 Cream With Tegaderm) 1 each TOP Q6H PRN PRN Reason: unknown Lorazepam (Ativan) 2 mg IVPUSH Q4H PRN PRN Reason: Seizures Lorazepam (Ativan) 0.5 mg IV Q6H PRN PRN Reason: Anxiety Magnesium Sulfate (Pharmacy To Dose - Magnesium Replacement) 1 dose .XX ASDIRECTED [facility] Metoprolol Tartrate (Lopressor) 5 mg IVPUSH Q4H PRN PRN Reason: Tachycardia Multivitamins (Thera) 1 each PO DAILY [facility] Non-Formulary Medication (Mineral Oil/Petrolatum,White [Soothe Night Time Lub Eye Oint]) 1 applic EYEBOTH BEDTIME PRN PRN Reason: Dry Eyes Non-Formulary Medication (Olopatadine) 1 drop EYEBOTH BID PRN PRN Reason: allergy symptoms Ondansetron HCl (Zofran) 4 mg IV Q6H PRN PRN Reason: Nausea/Vomiting Polyethylene Glycol (Miralax) [address] [facility] Potassium Chloride (Pharmacy To Dose - Potassium Replacement) 1 dose .XX ASDIRECTED [facility] Primidone (Mysoline) 250 mg PO DAILY [facility] Primidone (Mysoline) 50 mg PO DAILY [facility] Saccharomyces Boulardii (Florastor) 250 mg PO DAILY [facility] Senna/Docusate Sodium (Senna Plus) 1 tab PO BID PRN PRN Reason: Constipation Sertraline HCl (Zoloft) 25 mg PO DAILY [facility] Sodium Chloride (Saline Flush) 10 ml FLUSH ASDIRECTED PRN PRN Reason: Keep Vein Open Last Admin: 05/13/18 18:39 Dose: 10 ml Temazepam (Restoril) 7.5 mg PO BEDTIME PRN PRN Reason: Sleep Vit A/Vit C/Vit E/Selen/Cu/Zn/Lutei (Icaps Mv) 1 tab PO DAILY DENITA Assessment/Plan Comment:: I/P: Acute: CAP - Appears to be very similar admission to previous on 11/17/17 - Risk Factors: ILD/Pulmonary Fibrosis, Chronic Bronchiectasis - Chest CT scan in 04/08/2015: 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 Candelaria due to productive cough -Pharmacy reports last refilled in March - She is not seeing ID or Pulmonology by personal choice -ED note states she is following someone in [place] however daughter reports this is not true - Given Rocephin/Azithromycin in ED, Switched to IV Levaquin however was given 10 day fluoroquinolone Rx recently -Good response to levaquin last admission -Will resume rocephin - IS/FV, Supplemental O2, Decongestant/Expectorant; Airway suction to remove copious oral secretions PRN - Respiratory panel, Strep Pneumo - ordered - Mycoplasma - negative - Blood cultures - Negative after one day - Initial sputum culture: poor sample; Repeat today - Lactic acid WNL - WBC 14.45--> 7.38 - CRP 17.8-->16.0 - CXR on 05/13/18: Multiple changes which appear to be chronic; Nothing acute - Repeat CXR in 24-48 hours - RT Consult - Ambulate - Probiotic as ordered Anemia - History of chronic TREVOR; on iron supplementation - Baseline Hgb appears to be around 8-9 - Hgb 9.0-->7.7-->8.3 - Likely worsened by IV fluids - Iron panel in AM Chronic: HTN Interstitial Lung Disease/Pulmonary Fibrosis Bronchiectasis Kyphosis Hypothyroidism Essential Tremors Anemia with TREVOR Hx/o MAC infection Osteoporosis Depression Plan: Admit to medical floor on telemetry Home medications as ordered Routine AM Labs PT/OT SW/CM for discharge planning; Resides in [facility] She may benefit with chest physiotherapy DVT prophylaxis: JAILENE Lomax, ambulate Obtain old records End of life care explored at last visit, consider again Code status: DNR/DNI; PCP: Dr. Candelaria
[2018-05-14] MEDS ORDERED: HYDROmorphone 0.5 MG/0.5 ML Syringe IVPUSH PRN (07:30)
[2018-05-14] MEDS ORDERED: Primidone 250 MG Tab PO SCH (09:00)
[2018-05-14] MEDS ORDERED: Azithromycin 250 MG Tab PO SCH (09:00)
[2018-05-14] MEDS: Polyethylene Glycol 3350 Powder 17 GM Packet PO SCH (09:23)
[2018-05-14] MEDS: Primidone 50 MG Tab PO SCH ×2 (09:24→21:29)
[2018-05-14] MEDS: Multivitamins,Therapeutic Tab PO SCH (09:24)
[2018-05-14] MEDS: Multivitamins with Minerals/Folic Acid/Lutein/Zeaxanth Tab PO SCH (09:24)
[2018-05-14] MEDS: Ferrous Sulfate 325 MG Tab PO SCH (09:24)
[2018-05-14] MEDS: Calcium Carbonate/Vitamin D3 600 MG-200 Units Tab PO SCH ×2 (09:24→21:13)
[2018-05-14] MEDS: Fish Oil/Omega-3 Fatty Acids 1 Gm Cap PO SCH (09:24)
[2018-05-14] MEDS: Sertraline 25 MG Tab PO SCH (09:24)
[2018-05-14] MEDS: Saccharomyces Boulardii (Probiotic) 250 MG Cap PO SCH (09:24)
[2018-05-14] MEDS: guaiFENesin 600 MG Tab.ER PO SCH ×2 (09:24→21:13)
[2018-05-14] MEDS: Hypromellose 0.5% Ophth Soln 15 ML Bottle EYEBOTH SCH ×3 (09:25→21:12)
[2018-05-14] MEDS: Azithromycin 500 MG in Sodium Chloride 0.9% 250 ML IV SCH (09:25)
[2018-05-14] MEDS: Albuterol/Ipratropium 3.0-0.5 MG/3 ML Neb Soln NEB PRN (15:27)
[2018-05-14] MEDS: Albuterol 0.083% 2.5 MG/3 ML Neb Soln NEB SCH ×2 (16:01→20:30)
[2018-05-14] MEDS: cefTRIAXone 1 GM in Sodium Chloride 0.9% 100 ML IV SCH (18:09)
[2018-05-14] MEDS: Temazepam 7.5 MG Cap PO PRN (21:29)
[2018-05-15] MEDS: Levothyroxine 88 MCG Tab PO SCH (06:21)
[2018-05-15] MEDS: Primidone 250 MG Tab PO SCH (06:22)
[2018-05-15] MEDS: Albuterol 0.083% 2.5 MG/3 ML Neb Soln NEB SCH ×3 (07:44→20:03)
[2018-05-15] MEDS: Sertraline 25 MG Tab PO SCH (09:27)
[2018-05-15] MEDS: Hypromellose 0.5% Ophth Soln 15 ML Bottle EYEBOTH SCH ×3 (09:27→21:20)
[2018-05-15] MEDS: Multivitamins,Therapeutic Tab PO SCH (09:27)
[2018-05-15] MEDS: Ferrous Sulfate 325 MG Tab PO SCH ×2 (09:27→16:59)
[2018-05-15] MEDS: Calcium Carbonate/Vitamin D3 600 MG-200 Units Tab PO SCH ×2 (09:27→21:20)
[2018-05-15] MEDS: Fish Oil/Omega-3 Fatty Acids 1 Gm Cap PO SCH (09:27)
[2018-05-15] MEDS: Polyethylene Glycol 3350 Powder 17 GM Packet PO SCH (09:27)
[2018-05-15] MEDS: Multivitamins with Minerals/Folic Acid/Lutein/Zeaxanth Tab PO SCH (09:27)
[2018-05-15] MEDS: amLODIPine 2.5 MG Tab PO SCH (09:27)
[2018-05-15] MEDS: Saccharomyces Boulardii (Probiotic) 250 MG Cap PO SCH (09:27)
[2018-05-15] MEDS: guaiFENesin 600 MG Tab.ER PO SCH ×2 (09:28→21:20)
[2018-05-15] MEDS: Azithromycin 500 MG in Sodium Chloride 0.9% 250 ML IV SCH (09:28)
--- NOTE | 2018-05-15 11:53 | PCM.PN ---
- General Info Date of Service: 05/15/18 Admission Dx/Problem (Free Text): Admission Diagnosis/Problem Admission Diagnosis/Problem Pneumonia Subjective Update: In to see Sena. She is questioning why she is here and it is explained to her how the ambulance was called because she was not acting herself. It is also explained how she appears to have PNA. She states she feels OK but she has been having difficulty sleeping. She states how everyone has been keeping her up. Nursing put a no visitor sign on her door and shades were lowered in her room. She will be allowed to rest. WBC is back up to 12 and CRP has increased. She has occasionally had a temperature that increases up into the low 100s. This was discussed with Dr. Macias and it may be result of her underlying chronic respiratory conditions. So far infectious workup has been negative. Will continue current treatment. Functional Status: Reports: Pain Controlled, Tolerating Diet, Ambulating, Urinating, Incentive Spirometry, Other (Acapella). Denies: New Symptoms - Review of Systems General: Reports: Weakness, Fatigue, Malaise. Denies: Fever (none today ), Chills, Night Sweats HEENT: Reports: No Symptoms. Denies: Headaches, Visual Changes Pulmonary: Reports: Shortness of Breath, Cough, Sputum. Denies: Pleuritic Chest Pain Cardiovascular: Reports: Dyspnea on Exertion. Denies: Chest Pain, Palpitations Gastrointestinal: Reports: No Symptoms. Denies: Abdominal Pain, Constipation, Diarrhea, Nausea, Vomiting Genitourinary: Reports: No Symptoms Musculoskeletal: Reports: No Symptoms Skin: Reports: No Symptoms Neurological: Reports: Tremors (chronic ), Trouble Speaking (due to tremors ). Denies: Confusion Psychiatric: Reports: No Symptoms - Patient Data Vitals - Most Recent: Last Vital Signs Temp 97.9 F 05/15/18 08:25 Pulse 87 05/15/18 08:25 Resp 30 H 05/15/18 08:25 BP 136/60 05/15/18 09:27 Pulse Ox 99 05/15/18 08:25 Weight - Most Recent: 111 lb 4.806 oz I&O - Last 24 Hours: Intake & Output 05/14/18 05/15/18 05/15/18 22:59 06:59 14:59 Intake Total 2026 700 120 Output Total 600 Balance 1427 700 120 Lab Results Last 24 Hours: Laboratory Results - last 24 hr 05/14/18 05/15/18 05/15/18 Range/Units 13:35 06:50 06:50 WBC 12.73 H (3.98-10.04) K/mm3 RBC 3.07 L (3.98-5.22) M/mm3 Hgb 8.3 L 8.8 L (11.2-15.7) gm/L Hct 27.1 L 28.5 L (34.1-44.9) % MCV 92.8 (79.4-94.8) fl MCH 28.7 (25.6-32.2) pg MCHC 30.9 L (32.2-35.5) g/dl RDW Std Deviation 51.3 H (36.4-46.3) fL Plt Count 494 H (182-369) K/mm3 MPV 9.7 (9.4-12.3) fl Neut % (Auto) 81.9 H (34.0-71.1) % Lymph % (Auto) 6.5 L (19.3-51.7) % [place] % (Auto) 10.6 (4.7-12.5) % Eos % (Auto) 0.5 L (0.7-5.8) Baso % (Auto) 0.3 (0.1-1.2) % Neut # (Auto) 10.42 H (1.56-6.13) K/mm3 Lymph # (Auto) 0.83 L (1.18-3.74) K/mm3 [place] # (Auto) 1.35 H (0.24-0.36) K/mm3 Eos # (Auto) 0.07 (0.04-0.36) K/mm3 Baso # (Auto) 0.04 (0.01-0.08) K/mm3 Manual Slide Review Abnormal smear Sodium 138 (136-145) mEq/L Potassium 3.9 (3.5-5.1) mEq/L Chloride 103 (98-107) mEq/L Carbon Dioxide 30 (21-32) mEq/L Anion Gap 8.9 (5-15) BUN 16 (7-18) mg/dL Creatinine 0.7 (0.55-1.02) mg/dL Est Cr Clr Drug Dosing 45.13 mL/min Estimated GFR (MDRD) > 60 (>60) mL/min BUN/Creatinine Ratio 22.9 H (14-18) Glucose 100 (83-115) mg/dL Calcium 8.6 (8.5-10.1) mg/dL Magnesium 2.0 (1.8-2.4) mg/dl Iron (50-170) ug/dL TIBC (100-400) ug/dL % Saturation (20-55) % Transferrin (202-364) mg/dL C-Reactive Protein 21.6 H* (<1.0) mg/dL 05/15/18 Range/Units 06:50 WBC (3.98-10.04) K/mm3 RBC (3.98-5.22) M/mm3 Hgb (11.2-15.7) gm/L Hct (34.1-44.9) % MCV (79.4-94.8) fl MCH (25.6-32.2) pg MCHC (32.2-35.5) g/dl RDW Std Deviation (36.4-46.3) fL Plt Count (182-369) K/mm3 MPV (9.4-12.3) fl Neut % (Auto) (34.0-71.1) % Lymph % (Auto) (19.3-51.7) % [place] % (Auto) (4.7-12.5) % Eos % (Auto) (0.7-5.8) Baso % (Auto) (0.1-1.2) % Neut # (Auto) (1.56-6.13) K/mm3 Lymph # (Auto) (1.18-3.74) K/mm3 [place] # (Auto) (0.24-0.36) K/mm3 Eos # (Auto) (0.04-0.36) K/mm3 Baso # (Auto) (0.01-0.08) K/mm3 Manual Slide Review Sodium (136-145) mEq/L Potassium (3.5-5.1) mEq/L Chloride (98-107) mEq/L Carbon Dioxide (21-32) mEq/L Anion Gap (5-15) BUN (7-18) mg/dL Creatinine (0.55-1.02) mg/dL Est Cr Clr Drug Dosing mL/min Estimated GFR (MDRD) (>60) mL/min BUN/Creatinine Ratio (14-18) Glucose (83-115) mg/dL Calcium (8.5-10.1) mg/dL Magnesium (1.8-2.4) mg/dl Iron 10 L (50-170) ug/dL TIBC 203 (100-400) ug/dL % Saturation 5 L (20-55) % Transferrin 162 L (202-364) mg/dL C-Reactive Protein (<1.0) mg/dL Javan Results Last 24 Hours: Microbiology 05/13/18 18:05 Gram Stain - Final Sputum - Expectorated Sputum Culture - Preliminary 05/14/18 15:43 Gram Stain - Final Sputum - Expectorated Sputum Culture - Preliminary 05/14/18 06:15 Streptococcus pneumoniae Antigen (M - Final Urine 05/13/18 18:18 Aerobic Blood Culture - Preliminary Blood - Venous - Lab Draw NO GROWTH AFTER 1 DAY Anaerobic Blood Culture - Preliminary NO GROWTH AFTER 1 DAY 05/13/18 18:12 Aerobic Blood Culture - Preliminary Blood - Venous NO GROWTH AFTER 1 DAY Anaerobic Blood Culture - Preliminary NO GROWTH AFTER 1 DAY Med Orders - Current: Current Medications Acetaminophen (Tylenol) 650 mg PO Q4H PRN PRN Reason: Pain (mild 1-3) Last Admin: 05/14/18 21:13 Dose: 650 mg Albuterol (Proventil Neb Soln) 2.5 mg NEB TIDRT [facility] Last Admin: 05/15/18 07:44 Dose: 2.5 mg Albuterol/Ipratropium (Duoneb 3.0-0.5 Mg/3 Ml) 3 ml NEB Q4H PRN PRN Reason: Shortness Of Breath/wheezing Last Admin: 05/14/18 15:27 Dose: 3 ml Amlodipine Besylate (Norvasc) 2.5 mg PO DAILY [facility] Last Admin: 05/15/18 09:27 Dose: 2.5 mg Artificial Tears (Artificial Tears Ointment) 0 gm EYEBOTH BEDTIME PRN PRN Reason: Dry Eyes Artificial Tears (Isopto Tears 0.5% Ophth Soln) 0 ml EYEBOTH TID [facility] Last Admin: 05/15/18 09:27 Dose: 1 drop Azithromycin (Zithromax) 500 mg PO DAILY [facility] Bisacodyl (Dulcolax) 5 mg PO DAILY PRN PRN Reason: Constipation Calcium Carbonate (Calcium Carbonate/Vitamin D 600 Mg-200 Unit) 1 tab PO BID [facility] Last Admin: 05/15/18 09:27 Dose: 1 tab Docusate Sodium (Colace) 100 mg PO BID PRN PRN Reason: Constipation Ferrous Sulfate (Ferrous Sulfate) 325 mg PO DAILY [facility] Last Admin: 05/15/18 09:27 Dose: 325 mg Fish Oil (Fish Oil) 1 gm PO DAILY [facility] Last Admin: 05/15/18 09:27 Dose: 1 gm Guaifenesin (Mucinex) 600 mg PO BID [facility] Last Admin: 05/15/18 09:28 Dose: 600 mg Hydralazine HCl (Apresoline) 10 mg IVPUSH Q4H PRN PRN Reason: Hypertension Hydrocortisone (Hydrocortisone 1% Crm) 0 gm TOP TID PRN PRN Reason: Hemorrhoids Hydromorphone HCl (Dilaudid) 0.25 mg IVPUSH Q2H PRN PRN Reason: Pain (severe 7-10) Promethazine HCl 6.25 mg/ (Sodium Chloride) 50.25 mls @ 100 mls/hr IV Q6H PRN PRN Reason: Nausea/Vomiting Ceftriaxone Sodium 1 gm/ (Sodium Chloride) 100 mls @ 200 mls/hr IV Q24H [facility] Last Admin: 05/14/18 18:09 Dose: 200 mls/hr Levothyroxine Sodium (Synthroid) 88 mcg PO ACBREAKFAST [facility] Last Admin: 05/15/18 06:21 Dose: 88 mcg Lidocaine HCl (Lmx 4 Cream With Tegaderm) 1 each TOP Q6H PRN PRN Reason: unknown Lorazepam (Ativan) 2 mg IVPUSH Q4H PRN PRN Reason: Seizures Lorazepam (Ativan) 0.5 mg IV Q6H PRN PRN Reason: Anxiety Magnesium Sulfate (Pharmacy To Dose - Magnesium Replacement) 1 dose .XX ASDIRECTED [facility] Metoprolol Tartrate (Lopressor) 5 mg IVPUSH Q4H PRN PRN Reason: Tachycardia Last Admin: 05/14/18 16:28 Dose: 5 mg Multivitamins (Thera) 1 each PO DAILY [facility] Last Admin: 05/15/18 09:27 Dose: 1 each Ondansetron HCl (Zofran) 4 mg IV Q6H PRN PRN Reason: Nausea/Vomiting Olopatadine 1 Drop 0 each EYEBOTH BID PRN PRN Reason: allergy symptoms Polyethylene Glycol (Miralax) 17 gm PO DAILY [facility] Last Admin: 05/15/18 09:27 Dose: 17 gm Potassium Chloride (Pharmacy To Dose - Potassium Replacement) 1 dose .XX ASDIRECTED [facility] Primidone (Mysoline) 250 mg PO DAILY@0600 [facility] Last Admin: 05/15/18 06:22 Dose: 250 mg Primidone (Mysoline) 50 mg PO BEDTIME [facility] Saccharomyces Boulardii (Florastor) 250 mg PO DAILY [facility] Last Admin: 05/15/18 09:27 Dose: 250 mg Senna/Docusate Sodium (Senna Plus) 1 tab PO BID PRN PRN Reason: Constipation Sertraline HCl (Zoloft) 25 mg PO DAILY [facility] Last Admin: 05/15/18 09:27 Dose: 25 mg Sodium Chloride (Saline Flush) 10 ml FLUSH ASDIRECTED PRN PRN Reason: Keep Vein Open Last Admin: 05/13/18 18:39 Dose: 10 ml Temazepam (Restoril) 7.5 mg PO BEDTIME PRN PRN Reason: Sleep Last Admin: 05/14/18 21:29 Dose: 7.5 mg Vit A/Vit C/Vit E/Selen/Cu/Zn/Lutei (Icaps Mv) 1 tab PO DAILY [facility] Last Admin: 05/15/18 09:27 Dose: 1 tab Discontinued Medications Acetaminophen (Tylenol) 650 mg RECTAL NOW ONE Stop: 05/13/18 17:53 Last Admin: 05/13/18 18:24 Dose: 650 mg Acetaminophen (Tylenol) 325 mg PO ASDIRECTED PRN PRN Reason: Pain Hydrocodone Bitart/Acetaminophen (Vest 325-5 Mg) 1 tab PO Q4H PRN PRN Reason: Pain (moderate 4-6) Albuterol/Ipratropium (Duoneb 3.0-0.5 Mg/3 Ml) 3 ml NEB ONETIME ONE Stop: 05/13/18 17:52 Last Admin: 05/13/18 18:01 Dose: 3 ml Azithromycin (Zithromax) 250 mg PO BID [facility] Hydromorphone HCl (Dilaudid) 0.25 mg IVPUSH Q2H PRN PRN Reason: Pain (severe 7-10) Ceftriaxone Sodium 2 gm/ (Sodium Chloride) 100 mls @ 100 mls/hr IV ONETIME ONE Stop: 05/13/18 18:50 Last Admin: 05/13/18 18:38 Dose: 100 mls/hr Sodium Chloride (Normal Saline) 1,000 mls @ 75 mls/hr IV ASDIRECTED [facility] Last Admin: 05/14/18 13:44 Dose: 75 mls/hr Sodium Chloride (Normal Saline) 500 mls @ 1,000 mls/hr IV .BOLUS ONE Stop: 05/13/18 19:45 Last Admin: 05/13/18 22:14 Dose: Not Given Azithromycin 500 mg/ Sodium (Chloride) 250 mls @ 250 mls/hr IV DAILY [facility] Last Admin: 05/15/18 09:28 Dose: 250 mls/hr Levofloxacin/Dextrose 750 mg/ (Premix) 150 mls @ 100 mls/hr IV Q24H [facility] Last Admin: 05/14/18 01:07 Dose: 100 mls/hr Non-Formulary Medication (Denosumab [Prolia]) 60 mg SUBCUT Q180D [facility] Last Admin: 05/14/18 00:26 Dose: Not Given Primidone (Mysoline) 250 mg PO DAILY [facility] Last Admin: 05/14/18 09:24 Dose: 250 mg Primidone (Mysoline) 50 mg PO DAILY [facility] Last Admin: 05/14/18 21:29 Dose: 50 mg - Exam Quality Assessment: Supplemental Oxygen (Chronic 2L - at baseline) General: Alert, Oriented, Cooperative, Mild Distress, Other (Very tired) HEENT: Pupils Equal, Pupils Reactive, EOMI, Mucous Membr. Moist/[place] Neck: Supple, Trachea Midline, No JVD Lungs: Decreased Breath Sounds, Rhonchi Cardiovascular: Regular Rate, Regular Rhythm GI/Abdominal Exam: Normal Bowel Sounds, Soft, Non-Tender, No Organomegaly, No Distention (Female) Exam: Deferred Back Exam: Normal Inspection, Full Range of Motion Extremities: Normal Inspection, Normal Range of Motion, Non-Tender, No Pedal Edema, Normal Capillary Refill Peripheral Pulses: 2+: Radial (L), Radial (R), Dorsalis Pedis (L), Dorsalis Pedis (R) Skin: Warm, Dry, Intact Neurological: No New Focal Deficit Psy/Mental Status: Alert, Normal Affect, Normal Mood - Problem List & Annotations (1) Pneumonia SNOMED Code(s): 163538170 Code(s): J18.9 - PNEUMONIA, UNSPECIFIED ORGANISM Status: Acute Priority: High Current Visit: Yes Qualifiers: Pneumonia type: due to unspecified organism Laterality: right Lung location: upper lobe of lung Qualified Code(s): J18.1 - Lobar pneumonia, unspecified organism (2) Hypoxia SNOMED Code(s): 221496081 Code(s): R09.02 - HYPOXEMIA Status: Acute Priority: High Current Visit : Yes (3) Interstitial lung disease SNOMED Code(s): 272123294 Code(s): J84.9 - INTERSTITIAL PULMONARY DISEASE, UNSPECIFIED Status: Chronic Priority: High Current Visit: Yes (4) Mycobacterium avium complex SNOMED Code(s): 351493999 Code(s): A31.0 - PULMONARY MYCOBACTERIAL INFECTION Status: Chronic Priority: High Current Visit: Yes (5) Essential tremor SNOMED Code(s): 462608967 Code(s): G25.0 - ESSENTIAL TREMOR Status: Chronic Priority: Low Current Visit: No (6) Hypothyroidism SNOMED Code(s): 43591636 Code(s): E03.9 - HYPOTHYROIDISM, UNSPECIFIED Status: Chronic Priority: Low Current Visit: No Qualifiers: Hypothyroidism type: unspecified Qualified Code(s): E03.9 - Hypothyroidism , unspecified (7) Bronchiectasis SNOMED Code(s): 55641492 Code(s): J47.9 - BRONCHIECTASIS, UNCOMPLICATED Status: Chronic Priority: High Current Visit: Yes Qualifiers: Bronchiectasis type: with acute lower respiratory infection Qualified Code( s): J47.0 - Bronchiectasis with acute lower respiratory infection - Problem List Review Problem List Initiated/Reviewed/Updated: Yes - My Orders Last 24 Hours: My Active Orders 05/14/18 15:43 CULTURE SPUTUM + SMEAR [RM] Routine 05/14/18 19:00 RESPIRATORY PANEL Routine 05/16/18 08:00 CXR [Chest 2V] [CR] Routine - Plan Plan:: I/P: Acute: CAP - Appears to be very similar admission to previous on 11/17/17 - Risk Factors: ILD/Pulmonary Fibrosis, Chronic Bronchiectasis - Chest CT scan in 04/08/2015: 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 Candelaria due to productive cough -Pharmacy reports last refilled in March - She is not seeing ID or Pulmonology by personal choice -ED note states she is following someone in [place] however daughter reports this is not true - Given Rocephin/Azithromycin in ED, Switched to IV Levaquin however was given 10 day fluoroquinolone Rx recently -Good response to levaquin last admission -Will resume rocephin - IS/FV, Supplemental O2, Decongestant/Expectorant; Airway suction to remove copious oral secretions PRN - Respiratory panel - pending - Mycoplasma, strep pneumo - negative - Blood cultures - Negative after one day - Initial sputum culture: poor sample; Repeat pending - Lactic acid WNL - WBC 14.45--> 7.38-->12.73 - CRP 17.8-->16.0-->21.6 - CXR on 05/13/18: Multiple changes which appear to be chronic; Nothing acute - Repeat CXR tomorrow - RT Consult - Ambulate - Probiotic as ordered Anemia - History of chronic TREVOR; on iron supplementation 325mg Daily - Baseline Hgb appears to be around 8-9 - Hgb 9.0-->7.7-->8.3-->8.8 - Likely worsened by IV fluids - Iron panel 05/15/18: Iron 10, TIBC 203, % saturation 5, Transferrin 162 - Will double dose to BID - Monitor for constipation Chronic: HTN Interstitial Lung Disease/Pulmonary Fibrosis Bronchiectasis Kyphosis Hypothyroidism Essential Tremors Anemia with TREVOR Hx/o MAC infection Osteoporosis Depression Plan: Admit to medical floor on telemetry Home medications as ordered Routine AM Labs PT/OT SW/CM for discharge planning; Resides in [facility] She may benefit with chest physiotherapy DVT prophylaxis: JAILENE Lomax, ambulate Obtain old records End of life care explored at last visit, consider again Code status: DNR/DNI; PCP: Dr. Candelaria
[2018-05-15] MEDS: Acetaminophen 325 MG Tab PO PRN ×2 (12:48→21:18)
[2018-05-15] MEDS: Albuterol/Ipratropium 3.0-0.5 MG/3 ML Neb Soln NEB PRN (12:50)
[2018-05-15] MEDS: cefTRIAXone 1 GM in Sodium Chloride 0.9% 100 ML IV SCH (16:59)
[2018-05-15] MEDS ORDERED: Primidone 50 MG Tab PO SCH ×2 (21:00)
[2018-05-16] MEDS: Primidone 250 MG Tab PO SCH (05:29)
[2018-05-16] MEDS: Levothyroxine 88 MCG Tab PO SCH (05:29)
[2018-05-16] MEDS: Albuterol/Ipratropium 3.0-0.5 MG/3 ML Neb Soln NEB PRN (08:51)
[2018-05-16] MEDS: Albuterol 0.083% 2.5 MG/3 ML Neb Soln NEB SCH ×2 (08:52→13:00)
[2018-05-16] MEDS: Polyethylene Glycol 3350 Powder 17 GM Packet PO SCH (09:48)
[2018-05-16] MEDS: guaiFENesin 600 MG Tab.ER PO SCH ×2 (09:51→21:23)
[2018-05-16] MEDS: Multivitamins,Therapeutic Tab PO SCH (09:51)
[2018-05-16] MEDS: Calcium Carbonate/Vitamin D3 600 MG-200 Units Tab PO SCH ×2 (09:51→21:23)
[2018-05-16] MEDS: Multivitamins with Minerals/Folic Acid/Lutein/Zeaxanth Tab PO SCH (09:51)
[2018-05-16] MEDS: Azithromycin 250 MG Tab PO SCH (09:51)
[2018-05-16] MEDS: amLODIPine 2.5 MG Tab PO SCH (09:52)
[2018-05-16] MEDS: Hypromellose 0.5% Ophth Soln 15 ML Bottle EYEBOTH SCH ×3 (09:52→21:32)
[2018-05-16] MEDS: Sertraline 25 MG Tab PO SCH (09:52)
[2018-05-16] MEDS: Saccharomyces Boulardii (Probiotic) 250 MG Cap PO SCH (09:52)
[2018-05-16] MEDS: Fish Oil/Omega-3 Fatty Acids 1 Gm Cap PO SCH (09:52)
[2018-05-16] MEDS: Ferrous Sulfate 325 MG Tab PO SCH ×2 (10:48→16:44)
[2018-05-16] MEDS: Acetaminophen 325 MG Tab PO PRN ×2 (11:57→18:46)
[2018-05-16] MEDS ORDERED: Propranolol 20 MG Tab PO ONE (12:08)
--- NOTE | 2018-05-16 12:10 | PCM.PN ---
- General Info Date of Service: 05/16/18 Admission Dx/Problem (Free Text): Admission Diagnosis/Problem Admission Diagnosis/Problem Pneumonia Subjective Update: Follow Up Functional Status: Reports: Pain Controlled, Tolerating Diet, Urinating, Incentive Spirometry. Denies: New Symptoms - Review of Systems General: Reports: Fatigue. Denies: Fever, Chills HEENT: Reports: No Symptoms Pulmonary: Reports: Shortness of Breath, Cough, Sputum. Denies: Wheezing Cardiovascular: Denies: Chest Pain, Dyspnea on Exertion, Lightheadedness Gastrointestinal: Denies: Abdominal Pain, Decreased Appetite, Nausea, Vomiting Genitourinary: Reports: No Symptoms Musculoskeletal: Reports: No Symptoms Skin: Reports: Bruising. Denies: Cyanosis, Mottled, Pallor Neurological: Reports: Tremors, Weakness, Gait Disturbance. Denies: Confusion Psychiatric: Reports: Agitation. Denies: Depression, Anxiety, Hallucinations Systems Review Comment:: No overnight or acute issues. She is essentially the same. Her tremors seem to be getting worse. She is coughing up more thick yellowish sputum. She is afebrile but her WBC is more worse this AM. Her Hgb is stable at 8.4. Her CRP is trending up. He has no complaints this AM. - Patient Data Vitals - Most Recent: Last Vital Signs Temp 39.5 C H 05/16/18 11:57 Pulse 98 05/16/18 08:49 Resp 20 05/16/18 08:49 BP 153/72 H 05/16/18 09:52 Pulse Ox 97 05/16/18 08:54 Weight - Most Recent: 50.576 kg I&O - Last 24 Hours: Intake & Output 05/15/18 05/16/18 05/16/18 22:59 06:59 14:59 Intake Total 918 450 0 Balance 918 450 0 Lab Results Last 24 Hours: Laboratory Results - last 24 hr 05/14/18 05/16/18 05/16/18 Range/Units 19:00 05:53 05:53 WBC 14.43 H (3.98-10.04) K/mm3 RBC 2.88 L (3.98-5.22) M/mm3 Hgb 8.4 L (11.2-15.7) gm/L Hct 26.3 L (34.1-44.9) % MCV 91.3 (79.4-94.8) fl MCH 29.2 (25.6-32.2) pg MCHC 31.9 L (32.2-35.5) g/dl RDW Std Deviation 50.4 H (36.4-46.3) fL Plt Count 466 H (182-369) K/mm3 MPV 9.4 (9.4-12.3) fl Neut % (Auto) 82.2 H (34.0-71.1) % Lymph % (Auto) 5.5 L (19.3-51.7) % [place] % (Auto) 11.1 (4.7-12.5) % Eos % (Auto) 0.5 L (0.7-5.8) Baso % (Auto) 0.5 (0.1-1.2) % Neut # (Auto) 11.86 H (1.56-6.13) K/mm3 Lymph # (Auto) 0.80 L (1.18-3.74) K/mm3 [place] # (Auto) 1.60 H (0.24-0.36) K/mm3 Eos # (Auto) 0.07 (0.04-0.36) K/mm3 Baso # (Auto) 0.07 (0.01-0.08) K/mm3 Manual Slide Review Abnormal smear Sodium 136 (136-145) mEq/L Potassium 4.5 (3.5-5.1) mEq/L Chloride 102 (98-107) mEq/L Carbon Dioxide 29 (21-32) mEq/L Anion Gap 9.5 (5-15) BUN 16 (7-18) mg/dL Creatinine 0.8 (0.55-1.02) mg/dL Est Cr Clr Drug Dosing 39.56 mL/min Estimated GFR (MDRD) > 60 (>60) mL/min BUN/Creatinine Ratio 20.0 H (14-18) Glucose 102 (83-115) mg/dL Calcium 8.6 (8.5-10.1) mg/dL Magnesium 1.8 (1.8-2.4) mg/dl C-Reactive Protein 24.4 H* (<1.0) mg/dL Adenovirus (PCR) Not detected (Not Detected) B. pertussis DNA (PCR) Not detected (Not Detected) B.parapertussis DNA PCR Not detected (Not Detected) C. pneumoniae DNA (PCR) Not detected (Not Detected) Coronavirus (PCR) Not detected (Not Detected) Human Metapneumovir PCR Not detected (Not Detected) Influenza A (RT-PCR) Not detected (Not Detected) Influenza B (RT-PCR) Not detected (Not Detected) M. pneumoniae (PCR) Not detected (Not Detected) Parainfluen 1,2,3,4 PCR Not detected (Not Detected) RSV (PCR) Not detected (Not Detected) Entero/Rhino (PCR) Not detected (Not Detected) Javan Results Last 24 Hours: Microbiology 05/14/18 15:43 Gram Stain - Final Sputum - Expectorated Sputum Culture - Preliminary 05/13/18 18:18 Aerobic Blood Culture - Preliminary Blood - Venous - Lab Draw NO GROWTH AFTER 2 DAYS Anaerobic Blood Culture - Preliminary NO GROWTH AFTER 2 DAYS 05/13/18 18:12 Aerobic Blood Culture - Preliminary Blood - Venous NO GROWTH AFTER 2 DAYS Anaerobic Blood Culture - Preliminary NO GROWTH AFTER 2 DAYS 05/13/18 18:05 Gram Stain - Final Sputum - Expectorated Sputum Culture - Final NORMAL RESPIRATORY LYNNE 2 DAYS Med Orders - Current: Current Medications Acetaminophen (Tylenol) 650 mg PO Q4H PRN PRN Reason: Pain (mild 1-3) Last Admin: 05/16/18 11:57 Dose: 650 mg Albuterol (Proventil Neb Soln) 2.5 mg NEB TIDRT [facility] Last Admin: 05/16/18 08:52 Dose: Not Given Albuterol/Ipratropium (Duoneb 3.0-0.5 Mg/3 Ml) 3 ml NEB Q4H PRN PRN Reason: Shortness Of Breath/wheezing Last Admin: 05/16/18 08:51 Dose: 3 ml Amlodipine Besylate (Norvasc) 2.5 mg PO DAILY [facility] Last Admin: 05/16/18 09:52 Dose: 2.5 mg Artificial Tears (Artificial Tears Ointment) 0 gm EYEBOTH BEDTIME PRN PRN Reason: Dry Eyes Artificial Tears (Isopto Tears 0.5% Ophth Soln) 0 ml EYEBOTH TID [facility] Last Admin: 05/16/18 09:52 Dose: 1 drop Azithromycin (Zithromax) 500 mg PO DAILY [facility] Last Admin: 05/16/18 09:51 Dose: 500 mg Bisacodyl (Dulcolax) 5 mg PO DAILY PRN PRN Reason: Constipation Calcium Carbonate (Calcium Carbonate/Vitamin D 600 Mg-200 Unit) 1 tab PO BID [facility] Last Admin: 05/16/18 09:51 Dose: 1 tab Docusate Sodium (Colace) 100 mg PO BID PRN PRN Reason: Constipation Ferrous Sulfate (Ferrous Sulfate) 325 mg PO BID@1100,1700 [facility] Last Admin: 05/16/18 10:48 Dose: 325 mg Fish Oil (Fish Oil) 1 gm PO DAILY [facility] Last Admin: 05/16/18 09:52 Dose: 1 gm Guaifenesin (Mucinex) 600 mg PO BID [facility] Last Admin: 05/16/18 09:51 Dose: 600 mg Guaifenesin/Phenylephrine HCl (Robitussin Dm) 5 ml PO TID@0700,1400,2100 PRN PRN Reason: Cough Hydralazine HCl (Apresoline) 10 mg IVPUSH Q4H PRN PRN Reason: Hypertension Hydrocortisone (Hydrocortisone 1% Crm) 0 gm TOP TID PRN PRN Reason: Hemorrhoids Hydromorphone HCl (Dilaudid) 0.25 mg IVPUSH Q2H PRN PRN Reason: Pain (severe 7-10) Promethazine HCl 6.25 mg/ (Sodium Chloride) 50.25 mls @ 100 mls/hr IV Q6H PRN PRN Reason: Nausea/Vomiting Ceftriaxone Sodium 1 gm/ (Sodium Chloride) 100 mls @ 200 mls/hr IV Q24H [facility] Last Admin: 05/15/18 16:59 Dose: 200 mls/hr Levothyroxine Sodium (Synthroid) 88 mcg PO ACBREAKFAST [facility] Last Admin: 05/16/18 05:29 Dose: 88 mcg Lidocaine HCl (Lmx 4 Cream With Tegaderm) 1 each TOP Q6H PRN PRN Reason: unknown Lorazepam (Ativan) 2 mg IVPUSH Q4H PRN PRN Reason: Seizures Lorazepam (Ativan) 0.5 mg IV Q6H PRN PRN Reason: Anxiety Magnesium Sulfate (Pharmacy To Dose - Magnesium Replacement) 1 dose .XX ASDIRECTED [facility] Metoprolol Tartrate (Lopressor) 5 mg IVPUSH Q4H PRN PRN Reason: Tachycardia Last Admin: 05/14/18 16:28 Dose: 5 mg Multivitamins (Thera) 1 each PO DAILY [facility] Last Admin: 05/16/18 09:51 Dose: 1 each Ondansetron HCl (Zofran) 4 mg IV Q6H PRN PRN Reason: Nausea/Vomiting Olopatadine 1 Drop 0 each EYEBOTH BID PRN PRN Reason: allergy symptoms Polyethylene Glycol (Miralax) 17 gm PO DAILY [facility] Last Admin: 05/16/18 09:48 Dose: 17 gm Potassium Chloride (Pharmacy To Dose - Potassium Replacement) 1 dose .XX ASDIRECTED [facility] Primidone (Mysoline) 250 mg PO DAILY@0600 [facility] Last Admin: 05/16/18 05:29 Dose: 250 mg Saccharomyces Boulardii (Florastor) 250 mg PO DAILY [facility] Last Admin: 05/16/18 09:52 Dose: 250 mg Senna/Docusate Sodium (Senna Plus) 1 tab PO BID PRN PRN Reason: Constipation Sertraline HCl (Zoloft) 25 mg PO DAILY [facility] Last Admin: 05/16/18 09:52 Dose: 25 mg Sodium Chloride (Saline Flush) 10 ml FLUSH ASDIRECTED PRN PRN Reason: Keep Vein Open Last Admin: 05/13/18 18:39 Dose: 10 ml Temazepam (Restoril) 7.5 mg PO BEDTIME PRN PRN Reason: Sleep Last Admin: 05/14/18 21:29 Dose: 7.5 mg Vit A/Vit C/Vit E/Selen/Cu/Zn/Lutei (Icaps Mv) 1 tab PO DAILY [facility] Last Admin: 05/16/18 09:51 Dose: 1 tab Discontinued Medications Acetaminophen (Tylenol) 650 mg RECTAL NOW ONE Stop: 05/13/18 17:53 Last Admin: 05/13/18 18:24 Dose: 650 mg Acetaminophen (Tylenol) 325 mg PO ASDIRECTED PRN PRN Reason: Pain Hydrocodone Bitart/Acetaminophen ([place] 325-5 Mg) 1 tab PO Q4H PRN PRN Reason: Pain (moderate 4-6) Albuterol/Ipratropium (Duoneb 3.0-0.5 Mg/3 Ml) 3 ml NEB ONETIME ONE Stop: 05/13/18 17:52 Last Admin: 05/13/18 18:01 Dose: 3 ml Azithromycin (Zithromax) 250 mg PO BID [facility] Ferrous Sulfate (Ferrous Sulfate) 325 mg PO DAILY [facility] Last Admin: 05/15/18 09:27 Dose: 325 mg Hydromorphone HCl (Dilaudid) 0.25 mg IVPUSH Q2H PRN PRN Reason: Pain (severe 7-10) Ceftriaxone Sodium 2 gm/ (Sodium Chloride) 100 mls @ 100 mls/hr IV ONETIME ONE Stop: 05/13/18 18:50 Last Admin: 05/13/18 18:38 Dose: 100 mls/hr Sodium Chloride (Normal Saline) 1,000 mls @ 75 mls/hr IV ASDIRECTED [facility] Last Admin: 05/14/18 13:44 Dose: 75 mls/hr Sodium Chloride (Normal Saline) 500 mls @ 1,000 mls/hr IV .BOLUS ONE Stop: 05/13/18 19:45 Last Admin: 05/13/18 22:14 Dose: Not Given Azithromycin 500 mg/ Sodium (Chloride) 250 mls @ 250 mls/hr IV DAILY [facility] Last Admin: 05/15/18 09:28 Dose: 250 mls/hr Levofloxacin/Dextrose 750 mg/ (Premix) 150 mls @ 100 mls/hr IV Q24H [facility] Last Admin: 05/14/18 01:07 Dose: 100 mls/hr Non-Formulary Medication (Denosumab [Prolia]) 60 mg SUBCUT Q180D [facility] Last Admin: 05/14/18 00:26 Dose: Not Given Primidone (Mysoline) 250 mg PO DAILY [facility] Last Admin: 05/14/18 09:24 Dose: 250 mg Primidone (Mysoline) 50 mg PO DAILY [facility] Last Admin: 05/14/18 21:29 Dose: 50 mg Primidone (Mysoline) 50 mg PO BEDTIME [facility] Primidone (Mysoline) 100 mg PO BEDTIME [facility] Last Admin: 05/15/18 21:19 Dose: 100 mg - Exam Quality Assessment: Supplemental Oxygen General: Alert, Cooperative, No Acute Distress, Other (Cachectic) HEENT: Pupils Equal, Pupils Reactive, Mucous Membr. Moist/[place], Other (lips and neck tremors) Neck: Supple, Trachea Midline, Lymphadenopathy Lungs: Decreased Breath Sounds, Rhonchi, Wheezing. No: Normal Respiratory Effort Cardiovascular: Regular Rate, Regular Rhythm GI/Abdominal Exam: Normal Bowel Sounds, Soft, Non-Tender, No Organomegaly, No Distention, No Abnormal Bruit, No Mass (Female) Exam: Deferred Back Exam: Normal Inspection Extremities: Normal Inspection, Normal Range of Motion, Non-Tender, No Pedal Edema, Normal Capillary Refill Peripheral Pulses: 2+: Dorsalis Pedis (L), Dorsalis Pedis (R) Skin: Warm, Dry, Intact Neurological: No New Focal Deficit Psy/Mental Status: Alert, Normal Affect, Normal Mood - Problem List Review Problem List Initiated/Reviewed/Updated: Yes - My Orders Last 24 Hours: My Active Orders 05/16/18 09:00 Azithromycin [Zithromax] 500 mg PO DAILY 05/16/18 12:08 Propranolol [Inderal] 20 mg PO ONETIME ONE 05/16/18 14:00 Dextromethorphan/guaiFENesin [Robitussin DM] 5 ml PO TID@0700,1400,2100 PRN 05/16/18 21:00 Primidone [Mysoline] 150 mg PO BEDTIME Propranolol [Inderal] 40 mg PO BID 05/17/18 05:11 BASIC METABOLIC PANEL,BMP [CHEM] AM C-REACTIVE PROTEIN [CHEM] AM CBC WITH AUTO DIFF [HEME] AM MAGNESIUM [CHEM] AM 05/17/18 07:00 Chest 1V Frontal [CR] Routine 05/18/18 05:11 BASIC METABOLIC PANEL,BMP [CHEM] AM C-REACTIVE PROTEIN [CHEM] AM CBC WITH AUTO DIFF [HEME] AM MAGNESIUM [CHEM] AM - Plan Plan:: I/P: Acute: CAP - Appears to be very similar admission to previous on 11/17/17 - Risk Factors: ILD/Pulmonary Fibrosis, Chronic Bronchiectasis - Chest CT scan in 04/08/2015: reticular nodular type - Chronically on 2L O2 via NC - 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 Candelaria due to productive cough -Pharmacy reports last refilled in March - She is not seeing ID or Pulmonology by personal choice -ED note states she is following someone in [place] however daughter reports this is not true - Given Rocephin/Azithromycin in ED, Switched to IV Levaquin however was given 10 day fluoroquinolone Rx recently -Good response to levaquin last admission -Will resume rocephin - IS/FV, Supplemental O2, Decongestant/Expectorant; Airway suction to remove copious oral secretions PRN - Respiratory panel - pending - Mycoplasma, strep pneumo - negative - Blood cultures - Negative after 3 days - Initial sputum culture: poor sample; repeat pending - Lactic acid WNL - WBC 14.45--> 7.38-->12.73 --> 14.43 - CRP 17.8-->16.0-->21.6--> 24.2 - CXR on 05/13/18: Multiple changes which appear to be chronic; Nothing acute - Repeat CXR shows chronic lung changes and improved diffuse opacities form previous imaging study - RT following - Ambulate - Probiotic as ordered Essential Tremors - Getting worse - Primidone 250 mg po Daily and 150 mg po HS - Consider adding Inderal 40 mg po BID as adjunct - Changed Albuterol to Levalbuterol to reduce tremors Anemia, Stable - History of chronic TREVOR; on iron supplementation 325mg Daily - Baseline Hgb appears to be around 8-9 - Hgb 9.0-->7.7-->8.3-->8.8--> now 8.4 - Likely worsened by IV fluids - Iron panel 05/15/18: Iron 10, TIBC 203, % saturation 5, Transferrin 162 - Will double dose to BID - Monitor for constipation Chronic: HTN Interstitial Lung Disease/Pulmonary Fibrosis Bronchiectasis Kyphosis Hypothyroidism Anemia with TREVOR Hx/o MAC infection Osteoporosis Depression Plan: She is clinically about the same Continue current treatment Routine AM Labs Continue PT/OT/RT She may benefit with chest physiotherapy SW/CM for discharge planning; Resides in [facility] DVT prophylaxis: JAILENE Lomax, ambulate Obtain old records End of life care explored at last visit, consider again Code status: DNR/DNI; PCP: Dr. Candelaria LOS anticipate > 96 hrs due to slow response to treatment. Prognosis is guarded.
[2018-05-16] MEDS ORDERED: guaiFENesin/Dextromethorphan 100-10 MG/5 ML Soln 5 ML Cup PO PRN (14:00)
[2018-05-16] MEDS: cefTRIAXone 1 GM in Sodium Chloride 0.9% 100 ML IV SCH (18:17)
[2018-05-16] MEDS ORDERED: Levalbuterol HCl 0.63 MG/3 ML Neb NEB PRN (18:41)
[2018-05-16] MEDS: Levalbuterol HCl 1.25 MG/3 ML Neb NEB SCH (20:25)
[2018-05-16] MEDS: Propranolol 40 MG Tab PO SCH (21:32)
[2018-05-16] MEDS: Primidone 50 MG Tab PO SCH (21:32)
[2018-05-17] MEDS: Levothyroxine 88 MCG Tab PO SCH (05:08)
[2018-05-17] MEDS: Primidone 250 MG Tab PO SCH (05:08)
[2018-05-17] MEDS: Levalbuterol HCl 1.25 MG/3 ML Neb NEB SCH ×3 (05:12→20:07)
--- NOTE | 2018-05-17 07:31 | PCM.PN ---
- General Info Date of Service: 05/17/18 Admission Dx/Problem (Free Text): Admission Diagnosis/Problem Admission Diagnosis/Problem Pneumonia Subjective Update: Follow Up Functional Status: Reports: Pain Controlled, Tolerating Diet, Urinating, Incentive Spirometry. Denies: New Symptoms - Review of Systems General: Denies: Fever, Weakness, Fatigue, Malaise, Chills HEENT: Reports: No Symptoms Pulmonary: Reports: Shortness of Breath, Cough, Sputum Cardiovascular: Denies: Chest Pain, Dyspnea on Exertion, Lightheadedness Gastrointestinal: Reports: No Symptoms Genitourinary: Reports: No Symptoms Musculoskeletal: Reports: No Symptoms Skin: Denies: Cyanosis, Mottled, Pallor, Diaphoresis, Rash Neurological: Reports: Difficulty Walking, Weakness, Gait Disturbance. Denies: Confusion Psychiatric: Denies: Depression, Anxiety, Hallucinations Systems Review Comment:: No significant overnight or acute issues. She states "I'm doing better". Her Hgb is 8.2 this AM. She is less tremulous. Her Mg level is slightly low at 1.7. - Patient Data Vitals - Most Recent: Last Vital Signs Temp 36.6 C 05/17/18 05:09 Pulse 85 05/17/18 05:09 Resp 26 H 05/17/18 05:09 BP 128/68 05/17/18 05:09 Pulse Ox 92 L 05/17/18 05:13 Weight - Most Recent: 49.85 kg I&O - Last 24 Hours: Intake & Output 05/16/18 05/17/18 05/17/18 22:59 06:59 14:59 Intake Total 870 550 Output Total 300 1000 Balance 570 -450 Lab Results Last 24 Hours: Laboratory Results - last 24 hr 05/17/18 05/17/18 Range/Units 05:35 05:35 WBC 13.51 H (3.98-10.04) K/mm3 RBC 2.82 L (3.98-5.22) M/mm3 Hgb 8.2 L (11.2-15.7) gm/L Hct 25.5 L (34.1-44.9) % MCV 90.4 (79.4-94.8) fl MCH 29.1 (25.6-32.2) pg MCHC 32.2 (32.2-35.5) g/dl RDW Std Deviation 49.4 H (36.4-46.3) fL Plt Count 447 H (182-369) K/mm3 MPV 10.2 (9.4-12.3) fl Neut % (Auto) 89.9 H (34.0-71.1) % Lymph % (Auto) 4.4 L (19.3-51.7) % [place] % (Auto) 5.0 (4.7-12.5) % Eos % (Auto) 0.2 L (0.7-5.8) Baso % (Auto) 0.4 (0.1-1.2) % Neut # (Auto) 12.15 H (1.56-6.13) K/mm3 Lymph # (Auto) 0.59 L (1.18-3.74) K/mm3 [place] # (Auto) 0.67 H (0.24-0.36) K/mm3 Eos # (Auto) 0.03 L (0.04-0.36) K/mm3 Baso # (Auto) 0.05 (0.01-0.08) K/mm3 Manual Slide Review Abnormal smear Sodium 132 L (136-145) mEq/L Potassium 4.3 (3.5-5.1) mEq/L Chloride 99 (98-107) mEq/L Carbon Dioxide 29 (21-32) mEq/L Anion Gap 8.3 (5-15) BUN 15 (7-18) mg/dL Creatinine 0.8 (0.55-1.02) mg/dL Est Cr Clr Drug Dosing 39.56 mL/min Estimated GFR (MDRD) > 60 (>60) mL/min BUN/Creatinine Ratio 18.8 H (14-18) Glucose 107 (83-115) mg/dL Calcium 8.6 (8.5-10.1) mg/dL Magnesium 1.7 L (1.8-2.4) mg/dl C-Reactive Protein 27.4 H* (<1.0) mg/dL [place] Results Last 24 Hours: Microbiology 05/13/18 18:18 Aerobic Blood Culture - Preliminary Blood - Venous - Lab Draw NO GROWTH AFTER 3 DAYS Anaerobic Blood Culture - Preliminary NO GROWTH AFTER 3 DAYS 05/13/18 18:12 Aerobic Blood Culture - Preliminary Blood - Venous NO GROWTH AFTER 3 DAYS Anaerobic Blood Culture - Preliminary NO GROWTH AFTER 3 DAYS 05/14/18 15:43 Gram Stain - Final Sputum - Expectorated Sputum Culture - Preliminary Med Orders - Current: Current Medications Acetaminophen (Tylenol) 650 mg PO Q4H PRN PRN Reason: Pain (mild 1-3) Last Admin: 05/16/18 18:46 Dose: 650 mg Amlodipine Besylate (Norvasc) 2.5 mg PO DAILY [facility] Last Admin: 05/16/18 09:52 Dose: 2.5 mg Artificial Tears (Artificial Tears Ointment) 0 gm EYEBOTH BEDTIME PRN PRN Reason: Dry Eyes Artificial Tears (Isopto Tears 0.5% Ophth Soln) 0 ml EYEBOTH TID [facility] Last Admin: 05/16/18 21:32 Dose: 1 drop Azithromycin (Zithromax) 500 mg PO DAILY [facility] Last Admin: 05/16/18 09:51 Dose: 500 mg Bisacodyl (Dulcolax) 5 mg PO DAILY PRN PRN Reason: Constipation Calcium Carbonate (Calcium Carbonate/Vitamin D 600 Mg-200 Unit) 1 tab PO BID [facility] Last Admin: 05/16/18 21:23 Dose: 1 tab Docusate Sodium (Colace) 100 mg PO BID PRN PRN Reason: Constipation Ferrous Sulfate (Ferrous Sulfate) 325 mg PO BID@1100,1700 [facility] Last Admin: 05/16/18 16:44 Dose: 325 mg Fish Oil (Fish Oil) 1 gm PO DAILY [facility] Last Admin: 05/16/18 09:52 Dose: 1 gm Guaifenesin (Mucinex) 600 mg PO BID [facility] Last Admin: 05/16/18 21:23 Dose: 600 mg Guaifenesin/Phenylephrine HCl (Robitussin Dm) 5 ml PO TID@0700,1400,2100 PRN PRN Reason: Cough Hydralazine HCl (Apresoline) 10 mg IVPUSH Q4H PRN PRN Reason: Hypertension Hydrocortisone (Hydrocortisone 1% Crm) 0 gm TOP TID PRN PRN Reason: Hemorrhoids Hydromorphone HCl (Dilaudid) 0.25 mg IVPUSH Q2H PRN PRN Reason: Pain (severe 7-10) Promethazine HCl 6.25 mg/ (Sodium Chloride) 50.25 mls @ 100 mls/hr IV Q6H PRN PRN Reason: Nausea/Vomiting Ceftriaxone Sodium 1 gm/ (Sodium Chloride) 100 mls @ 200 mls/hr IV Q24H [facility] Last Admin: 05/16/18 18:17 Dose: 200 mls/hr Levalbuterol HCl (Xopenex) 1.25 mg NEB Q8HRRT [facility] Last Admin: 05/17/18 05:12 Dose: 1.25 mg Levalbuterol HCl (Xopenex) 0.63 mg NEB Q4HRRT PRN PRN Reason: Shortness of Breath Levothyroxine Sodium (Synthroid) 88 mcg PO ACBREAKFAST [facility] Last Admin: 05/17/18 05:08 Dose: 88 mcg Lidocaine HCl (Lmx 4 Cream With Tegaderm) 1 each TOP Q6H PRN PRN Reason: unknown Lorazepam (Ativan) 2 mg IVPUSH Q4H PRN PRN Reason: Seizures Lorazepam (Ativan) 0.5 mg IV Q6H PRN PRN Reason: Anxiety Magnesium Sulfate (Pharmacy To Dose - Magnesium Replacement) 1 dose .XX ASDIRECTED [facility] Metoprolol Tartrate (Lopressor) 5 mg IVPUSH Q4H PRN PRN Reason: Tachycardia Last Admin: 05/14/18 16:28 Dose: 5 mg Multivitamins (Thera) 1 each PO DAILY [facility] Last Admin: 05/16/18 09:51 Dose: 1 each Ondansetron HCl (Zofran) 4 mg IV Q6H PRN PRN Reason: Nausea/Vomiting Olopatadine 1 Drop 0 each EYEBOTH BID PRN PRN Reason: allergy symptoms Polyethylene Glycol (Miralax) 17 gm PO DAILY [facility] Last Admin: 05/16/18 09:48 Dose: 17 gm Potassium Chloride (Pharmacy To Dose - Potassium Replacement) 1 dose .XX ASDIRECTED [facility] Primidone (Mysoline) 250 mg PO DAILY@0600 [facility] Last Admin: 05/17/18 05:08 Dose: 250 mg Primidone (Mysoline) 150 mg PO BEDTIME [facility] Last Admin: 05/16/18 21:32 Dose: 150 mg Propranolol HCl (Inderal) 40 mg PO BID [facility] Last Admin: 05/16/18 21:32 Dose: 40 mg Saccharomyces Boulardii (Florastor) 250 mg PO DAILY [facility] Last Admin: 05/16/18 09:52 Dose: 250 mg Senna/Docusate Sodium (Senna Plus) 1 tab PO BID PRN PRN Reason: Constipation Sertraline HCl (Zoloft) 25 mg PO DAILY [facility] Last Admin: 05/16/18 09:52 Dose: 25 mg Sodium Chloride (Saline Flush) 10 ml FLUSH ASDIRECTED PRN PRN Reason: Keep Vein Open Last Admin: 05/13/18 18:39 Dose: 10 ml Temazepam (Restoril) 7.5 mg PO BEDTIME PRN PRN Reason: Sleep Last Admin: 05/14/18 21:29 Dose: 7.5 mg Vit A/Vit C/Vit E/Selen/Cu/Zn/Lutei (Icaps Mv) 1 tab PO DAILY [facility] Last Admin: 05/16/18 09:51 Dose: 1 tab Discontinued Medications Acetaminophen (Tylenol) 650 mg RECTAL NOW ONE Stop: 05/13/18 17:53 Last Admin: 05/13/18 18:24 Dose: 650 mg Acetaminophen (Tylenol) 325 mg PO ASDIRECTED PRN PRN Reason: Pain Hydrocodone Bitart/Acetaminophen ([place] 325-5 Mg) 1 tab PO Q4H PRN PRN Reason: Pain (moderate 4-6) Albuterol (Proventil Neb Soln) 2.5 mg NEB TIDRT [facility] Last Admin: 05/16/18 13:00 Dose: 2.5 mg Albuterol/Ipratropium (Duoneb 3.0-0.5 Mg/3 Ml) 3 ml NEB ONETIME ONE Stop: 05/13/18 17:52 Last Admin: 05/13/18 18:01 Dose: 3 ml Albuterol/Ipratropium (Duoneb 3.0-0.5 Mg/3 Ml) 3 ml NEB Q4H PRN PRN Reason: Shortness Of Breath/wheezing Last Admin: 05/16/18 08:51 Dose: 3 ml Azithromycin (Zithromax) 250 mg PO BID [facility] Ferrous Sulfate (Ferrous Sulfate) 325 mg PO DAILY [facility] Last Admin: 05/15/18 09:27 Dose: 325 mg Hydromorphone HCl (Dilaudid) 0.25 mg IVPUSH Q2H PRN PRN Reason: Pain (severe 7-10) Ceftriaxone Sodium 2 gm/ (Sodium Chloride) 100 mls @ 100 mls/hr IV ONETIME ONE Stop: 05/13/18 18:50 Last Admin: 05/13/18 18:38 Dose: 100 mls/hr Sodium Chloride (Normal Saline) 1,000 mls @ 75 mls/hr IV ASDIRECTED [facility] Last Admin: 05/14/18 13:44 Dose: 75 mls/hr Sodium Chloride (Normal Saline) 500 mls @ 1,000 mls/hr IV .BOLUS ONE Stop: 05/13/18 19:45 Last Admin: 05/13/18 22:14 Dose: Not Given Azithromycin 500 mg/ Sodium (Chloride) 250 mls @ 250 mls/hr IV DAILY [facility] Last Admin: 05/15/18 09:28 Dose: 250 mls/hr Levofloxacin/Dextrose 750 mg/ (Premix) 150 mls @ 100 mls/hr IV Q24H [facility] Last Admin: 05/14/18 01:07 Dose: 100 mls/hr Non-Formulary Medication (Denosumab [Prolia]) 60 mg SUBCUT Q180D [facility] Last Admin: 05/14/18 00:26 Dose: Not Given Primidone (Mysoline) 250 mg PO DAILY [facility] Last Admin: 05/14/18 09:24 Dose: 250 mg Primidone (Mysoline) 50 mg PO DAILY [facility] Last Admin: 05/14/18 21:29 Dose: 50 mg Primidone (Mysoline) 50 mg PO BEDTIME DENITA Primidone (Mysoline) 100 mg PO BEDTIME [facility] Last Admin: 05/15/18 21:19 Dose: 100 mg Propranolol HCl (Inderal) 20 mg PO ONETIME ONE Stop: 05/16/18 12:09 Last Admin: 05/16/18 12:17 Dose: 20 mg - Exam General: Alert, Oriented, Cooperative, No Acute Distress HEENT: Pupils Equal, Pupils Reactive, EOMI, Mucous Membr. Moist/[place] Neck: Supple, Trachea Midline, No JVD Lungs: Normal Respiratory Effort, Decreased Breath Sounds, Rhonchi Cardiovascular: Other (distant heart sound) GI/Abdominal Exam: Normal Bowel Sounds, Soft, Non-Tender, No Organomegaly, No Distention, No Abnormal Bruit, No Mass (Female) Exam: Deferred Back Exam: Normal Inspection, Decreased Range of Motion, Other (kyphosis) Extremities: Normal Inspection, Normal Range of Motion, Non-Tender, No Pedal Edema, Normal Capillary Refill Peripheral Pulses: 2+: Dorsalis Pedis (L), Dorsalis Pedis (R) Skin: Warm, Dry, Intact Neurological: No New Focal Deficit Psy/Mental Status: Alert, Normal Affect, Normal Mood - Problem List Review Problem List Initiated/Reviewed/Updated: Yes - My Orders Last 24 Hours: My Active Orders 05/16/18 09:00 Azithromycin [Zithromax] 500 mg PO DAILY 05/16/18 14:00 Dextromethorphan/guaiFENesin [Robitussin DM] 5 ml PO TID@0700,1400,2100 PRN 05/16/18 18:41 Levalbuterol HCl [Xopenex] 0.63 mg NEB Q4HRRT PRN 05/16/18 21:00 Levalbuterol HCl [Xopenex] 1.25 mg NEB Q8HRRT Primidone [Mysoline] 150 mg PO BEDTIME Propranolol [Inderal] 40 mg PO BID 05/17/18 07:00 Chest 1V Frontal [CR] Routine 05/18/18 05:11 BASIC METABOLIC PANEL,BMP [CHEM] AM C-REACTIVE PROTEIN [CHEM] AM CBC WITH AUTO DIFF [HEME] AM MAGNESIUM [CHEM] AM - Plan Plan:: I/P: Acute: CAP - Appears to be very similar admission to previous on 11/17/17 - Risk Factors: ILD/Pulmonary Fibrosis, Chronic Bronchiectasis - Chest CT scan in 04/08/2015: reticular nodular type - Chronically on 2L O2 via NC - 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 Candelaria due to productive cough -Pharmacy reports last refilled in March - She is not seeing ID or Pulmonology by personal choice -ED note states she is following someone in [place] however daughter reports this is not true - Given Rocephin/Azithromycin in ED, Switched to IV Levaquin however was given 10 day fluoroquinolone Rx recently -Good response to levaquin last admission -Will resume rocephin - IS/FV, Supplemental O2, Decongestant/Expectorant; Airway suction to remove copious oral secretions PRN - Respiratory panel - pending - Mycoplasma, strep pneumo - negative - Blood cultures - Negative after 3 days - Initial sputum culture: poor sample; repeat pending - Lactic acid WNL - WBC 14.45--> 7.38-->12.73 --> 14.43--> 13.51 - CRP 17.8-->16.0-->21.6--> 24.2--> 27.4 - CXR on 05/13/18: Multiple changes which appear to be chronic; Nothing acute - Repeat CXR shows chronic lung changes and improved diffuse opacities form previous imaging study - RT following - Ambulate - Probiotic as ordered Essential Tremors, Improved - Continue Primidone 250 mg po Daily and 150 mg po HS - Inderal 40 mg po BID as adjunct - Levalbuterol for PRN and scheduled breathing treatment Anemia - History of chronic TREVOR; on iron supplementation 325mg Daily - Baseline Hgb appears to be around 8-9 - Hgb 9.0-->7.7-->8.3-->8.8--> 8.2--> 8.2 - Likely worsened by IV fluids - Iron panel 05/15/18: Iron 10, TIBC 203, % saturation 5, Transferrin 162 - IV infusion of iron x1 today - Monitor for constipation Hypomagnesemia - Mg is 1.7 - Likely 2/2 inadequate intake - Replete and monitor Chronic: HTN Interstitial Lung Disease/Pulmonary Fibrosis Bronchiectasis Kyphosis Hypothyroidism Anemia with TREVOR Hx/o MAC infection Osteoporosis Depression Plan: She is clinically much better today than yesterday Continue current treatment Routine AM Labs Continue PT/OT/RT SW/CM for discharge planning; Resides in [facility] DVT prophylaxis: JAILENE Lomax, ambulate Obtain old records End of life care explored at last visit, consider again Code status: DNR/DNI; PCP: Dr. Candelaria LOS > 96 hrs due to slow response to treatment. Prognosis remains guarded.
[2018-05-17] MEDS: Fish Oil/Omega-3 Fatty Acids 1 Gm Cap PO SCH (08:48)
[2018-05-17] MEDS: Multivitamins with Minerals/Folic Acid/Lutein/Zeaxanth Tab PO SCH (08:48)
[2018-05-17] MEDS: Multivitamins,Therapeutic Tab PO SCH (08:49)
[2018-05-17] MEDS: Saccharomyces Boulardii (Probiotic) 250 MG Cap PO SCH (08:49)
[2018-05-17] MEDS: Sertraline 25 MG Tab PO SCH (08:49)
[2018-05-17] MEDS: Hypromellose 0.5% Ophth Soln 15 ML Bottle EYEBOTH SCH ×3 (08:49→21:02)
[2018-05-17] MEDS: guaiFENesin 600 MG Tab.ER PO SCH ×2 (08:49→21:02)
[2018-05-17] MEDS: Propranolol 40 MG Tab PO SCH ×2 (08:49→21:01)
[2018-05-17] MEDS: Azithromycin 250 MG Tab PO SCH (08:49)
[2018-05-17] MEDS: amLODIPine 2.5 MG Tab PO SCH (08:49)
[2018-05-17] MEDS: Calcium Carbonate/Vitamin D3 600 MG-200 Units Tab PO SCH ×2 (08:50→21:01)
[2018-05-17] MEDS: Polyethylene Glycol 3350 Powder 17 GM Packet PO SCH (08:51)
[2018-05-17] MEDS ORDERED: Magnesium Oxide 400 MG Tab PO ONE (09:00)
--- NOTE | 2018-05-17 09:33 | CR ---
Chest: Portable view of the chest was obtained. Comparison: Prior chest x-ray 05/16/18. Interstitial change is noted throughout the left lung which is stable from most recent chest x-ray. Increasing parenchymal density is noted within the right upper lung with possible small air cavity most likely due to small area of cavitation. Uncertain if this increasing opacity represents pleural change, increased atelectasis, change from aspiration or pneumonia. Pleural effusion is noted on the right side which is stable from most recent exam. Heart size is mildly enlarged. Upper mediastinum is within normal limits. Degenerative change is noted within the spine. Impression: 1. Multiple findings, worse within the right chest. Increasing density within the right upper chest from prior study with differential as noted above. Diagnostic code #3
[2018-05-17] MEDS: Ferrous Sulfate 325 MG Tab PO SCH ×2 (12:10→17:02)
[2018-05-17] MEDS: cefTRIAXone 1 GM in Sodium Chloride 0.9% 100 ML IV SCH (17:03)
[2018-05-17] MEDS: Acetaminophen 325 MG Tab PO PRN (21:00)
[2018-05-17] MEDS: Primidone 50 MG Tab PO SCH (21:01)
[2018-05-17] MEDS: Temazepam 7.5 MG Cap PO PRN (21:02)
[2018-05-18] MEDS: Levalbuterol HCl 1.25 MG/3 ML Neb NEB SCH (05:38)
[2018-05-18] MEDS: Levothyroxine 88 MCG Tab PO SCH (06:53)
[2018-05-18] MEDS: Primidone 250 MG Tab PO SCH (06:53)
--- NOTE | 2018-05-18 07:13 | CR ---
Chest: Two views of the chest were obtained. Comparison: Prior chest x-ray of 05/13/18. Interstitial change is seen which appears stable. Right-sided pleural effusion is noted which has increased from previous exam. Cavitary lesion is noted within the right upper chest which is stable. Increasing parenchymal density is noted within the right upper chest from prior exam. Other parenchymal densities appear fairly stable. Impression: 1. Slight increasing parenchymal density within the right upper chest. Difficult to exclude worsening area of pneumonia versus atelectasis. 2. Slight increased right sided pleural effusion from prior study. 3. Other findings within the chest are stable. Diagnostic code #3 I agree with preliminary report from [facility], finalized on 05/16/18, 12:21 PM Central Time
[2018-05-18] MEDS: Calcium Carbonate/Vitamin D3 600 MG-200 Units Tab PO SCH (08:23)
[2018-05-18] MEDS: amLODIPine 2.5 MG Tab PO SCH (08:23)
[2018-05-18] MEDS: Azithromycin 250 MG Tab PO SCH (08:23)
[2018-05-18] MEDS: Multivitamins,Therapeutic Tab PO SCH (08:23)
[2018-05-18] MEDS: Sertraline 25 MG Tab PO SCH (08:23)
[2018-05-18] MEDS: Fish Oil/Omega-3 Fatty Acids 1 Gm Cap PO SCH (08:23)
[2018-05-18] MEDS: Multivitamins with Minerals/Folic Acid/Lutein/Zeaxanth Tab PO SCH (08:23)
[2018-05-18] MEDS: guaiFENesin 600 MG Tab.ER PO SCH (08:23)
[2018-05-18] MEDS: Propranolol 40 MG Tab PO SCH (08:23)
[2018-05-18] MEDS: Saccharomyces Boulardii (Probiotic) 250 MG Cap PO SCH (08:23)
[2018-05-18] MEDS: Polyethylene Glycol 3350 Powder 17 GM Packet PO SCH (08:24)
[2018-05-18] MEDS: Hypromellose 0.5% Ophth Soln 15 ML Bottle EYEBOTH SCH (08:24)
[2018-05-18] MEDS: Ferrous Sulfate 325 MG Tab PO SCH (10:59)
[2018-05-18 11:43] VITALS: BP 116/56
--- NOTE | 2018-05-18 12:10 | PCM.DCSUM1 ---
<Manasa Macias T - Last Filed: 05/18/18 14:47> Discharge Summary - Discharge Data Discharge Disposition: DC/Tfer to Other 70 Condition: Fair - Patient Summary/Data Consults: Consultations 05/13/18 22:44 Consult to Case Management/Pharmaceutical Sales [CONS] Routine Consult to Spiritual Care [CONS] Routine OT Evaluation and Treatment [CONS] Routine PT Evaluation and Treatment [CONS] Routine Respiratory Care Assess and Treatment [CONS] Routine - Discharge Plan Prescriptions/Med Rec: RX: Propranolol [Inderal] 40 mg PO BID #30 tablet Home Medications: Home Meds I-Darnell With Lutein. 1 cap PO DAILY 11/17/17 [History] RX: Acetaminophen [Tylenol] 325 mg PO Q6HR PRN 11/17/17 [History] RX: Albuterol Sulfate 2.5 mg IH TID 11/17/17 [History] RX: Calcium Carbonate/Vitamin D3 [Calcium 600 + Vit D Tablet] 1 each PO BID [History] RX: Denosumab [Prolia] 60 mg SUBCUT Q180D 11/17/17 [History] RX: Ferrous Sulfate 325 mg PO DAILY 11/17/17 [History] RX: Fish Oil/[place]-3 Fatty Acids [Fish Oil 1,000 MG] 1 each PO DAILY 11/17/17 [ History] RX: Hydrocortisone [Preparation H] 1 applic TP TID PRN 11/17/17 [History] RX: L.acidop,Vasquez,Lac,Rha/B.lac,Deon [Advanced Probiotic Capsule] 1 cap PO DAILY 11/17/17 [History] RX: Levothyroxine [Synthroid] 88 mcg PO DAILY 11/17/17 [History] RX: Lidocaine [Anecream] 1 applic TP Q6H PRN 11/17/17 [History] RX: Mineral Oil/Petrolatum,White [Soothe Night Time Lub Eye Oint] 1 applic EYEBOTH BEDTIME PRN 11/17/17 [History] RX: Multivitamin with Minerals [Multivitamins with Minerals] 1 each PO DAILY [History] RX: Olopatadine [Patanol 0.1% Ophth Soln] 1 drop EYEBOTH BID PRN 11/17/17 [ History] RX: Polyethylene Glycol 3350 [MiraLAX] 17 gm PO DAILY 11/17/17 [History] RX: Primidone 50 mg PO BEDTIME 11/17/17 [History] RX: Primidone 250 mg PO BEDTIME 11/17/17 [History] RX: Propylene Glycol/Peg 400 [Systane 0.3-0.4% Eye Drops] 1 drop EYEBOTH TID [History] RX: Sertraline [Zoloft] 25 mg PO DAILY 11/17/17 [History] RX: amLODIPine Besylate [Norvasc] 2.5 mg PO DAILY 11/17/17 [History] RX: guaiFENesin [Mucinex] 600 mg PO BID 11/17/17 [History] RX: Azithromycin [Zithromax] 250 mg PO DAILY 05/13/18 [History] RX: Propranolol [Inderal] 40 mg PO BID #30 tablet 05/18/18 [Rx] Patient Handouts: Home Oxygen Use, Adult, Community-Acquired Pneumonia, Adult, [id number] Referrals: Ines Candelaria MD [Primary Care Provider] - (Please follow-up with your primary care doctor, Dr. Ines Candelaria, within 7 to 10 days of discharge. ) - Discharge Summary/Plan Comment Discharge Summary/Plan Comment: Discharge to [place] Due to listed medical diagnoses in this report, patient is in need of skilled home health services for nursing, physical therapy and speech therapy. Patient is homebound due to chronic medical illness and was further weakened by her most recent illness. She will benefit from these services to improve her level of activity tolerance, generalized weakness and increased level of independence. She will be followed by her PCP, Ines Candelaria MD. - Patient Data Vitals - Most Recent: Last Vital Signs Temp 36.8 C 05/18/18 11:28 Pulse 71 05/18/18 11:28 Resp 28 H 05/18/18 11:28 BP 116/56 L 05/18/18 11:28 Pulse Ox 99 05/18/18 11:28 I&O - Last 24 hours: Intake & Output 05/17/18 05/18/18 05/18/18 22:59 06:59 14:59 Intake Total 815 400 600 Output Total 100 Balance 815 300 600 Lab Results - Last 24 hrs: Laboratory Results - last 24 hr 05/18/18 05/18/18 Range/Units 06:14 06:14 WBC 11.53 H (3.98-10.04) K/mm3 RBC 2.89 L (3.98-5.22) M/mm3 Hgb 8.4 L (11.2-15.7) gm/L Hct 26.3 L (34.1-44.9) % MCV 91.0 (79.4-94.8) fl MCH 29.1 (25.6-32.2) pg MCHC 31.9 L (32.2-35.5) g/dl RDW Std Deviation 50.3 H (36.4-46.3) fL Plt Count 464 H (182-369) K/mm3 MPV 9.7 (9.4-12.3) fl Neut % (Auto) 80.5 H (34.0-71.1) % Lymph % (Auto) 6.1 L (19.3-51.7) % [place] % (Auto) 11.9 (4.7-12.5) % Eos % (Auto) 0.8 (0.7-5.8) Baso % (Auto) 0.4 (0.1-1.2) % Neut # (Auto) 9.29 H (1.56-6.13) K/mm3 Lymph # (Auto) 0.70 L (1.18-3.74) K/mm3 [place] # (Auto) 1.37 H (0.24-0.36) K/mm3 Eos # (Auto) 0.09 (0.04-0.36) K/mm3 Baso # (Auto) 0.05 (0.01-0.08) K/mm3 Manual Slide Review Abnormal smear Sodium 134 L (136-145) mEq/L Potassium 4.1 (3.5-5.1) mEq/L Chloride 101 (98-107) mEq/L Carbon Dioxide 30 (21-32) mEq/L Anion Gap 7.1 (5-15) BUN 19 H (7-18) mg/dL Creatinine 0.9 (0.55-1.02) mg/dL Est Cr Clr Drug Dosing 34.72 mL/min Estimated GFR (MDRD) 59 (>60) mL/min BUN/Creatinine Ratio 21.1 H (14-18) Glucose 97 (83-115) mg/dL Calcium 8.9 (8.5-10.1) mg/dL Magnesium 2.0 (1.8-2.4) mg/dl C-Reactive Protein 28.2 H* (<1.0) mg/dL YOHAN Results - Last 24 hrs: Microbiology 05/14/18 15:43 Gram Stain - Final Sputum - Expectorated Sputum Culture - Final 05/13/18 18:18 Aerobic Blood Culture - Preliminary Blood - Venous - Lab Draw NO GROWTH AFTER 4 DAYS Anaerobic Blood Culture - Preliminary NO GROWTH AFTER 4 DAYS 05/13/18 18:12 Aerobic Blood Culture - Preliminary Blood - Venous NO GROWTH AFTER 4 DAYS Anaerobic Blood Culture - Preliminary NO GROWTH AFTER 4 DAYS Med Orders - Current: Current Medications Acetaminophen (Tylenol) 650 mg PO Q4H PRN PRN Reason: Pain (mild 1-3) Last Admin: 05/17/18 21:00 Dose: 650 mg Amlodipine Besylate (Norvasc) 2.5 mg PO DAILY [facility] Last Admin: 05/18/18 08:23 Dose: 2.5 mg Artificial Tears (Artificial Tears Ointment) 0 gm EYEBOTH BEDTIME PRN PRN Reason: Dry Eyes Artificial Tears (Isopto Tears 0.5% Ophth Soln) 0 ml EYEBOTH TID [facility] Last Admin: 05/18/18 08:24 Dose: 1 drop Azithromycin (Zithromax) 500 mg PO DAILY [facility] Last Admin: 05/18/18 08:23 Dose: 500 mg Bisacodyl (Dulcolax) 5 mg PO DAILY PRN PRN Reason: Constipation Calcium Carbonate (Calcium Carbonate/Vitamin D 600 Mg-200 Unit) 1 tab PO BID [facility] Last Admin: 05/18/18 08:23 Dose: 1 tab Docusate Sodium (Colace) 100 mg PO BID PRN PRN Reason: Constipation Ferrous Sulfate (Ferrous Sulfate) 325 mg PO BID@1100,1700 [facility] Last Admin: 05/18/18 10:59 Dose: 325 mg Fish Oil (Fish Oil) 1 gm PO DAILY [facility] Last Admin: 05/18/18 08:23 Dose: 1 gm Guaifenesin (Mucinex) 600 mg PO BID [facility] Last Admin: 05/18/18 08:23 Dose: 600 mg Guaifenesin/Phenylephrine HCl (Robitussin Dm) 5 ml PO TID@0700,1400,2100 PRN PRN Reason: Cough Hydralazine HCl (Apresoline) 10 mg IVPUSH Q4H PRN PRN Reason: Hypertension Hydrocortisone (Hydrocortisone 1% Crm) 0 gm TOP TID PRN PRN Reason: Hemorrhoids Hydromorphone HCl (Dilaudid) 0.25 mg IVPUSH Q2H PRN PRN Reason: Pain (severe 7-10) Promethazine HCl 6.25 mg/ (Sodium Chloride) 50.25 mls @ 100 mls/hr IV Q6H PRN PRN Reason: Nausea/Vomiting Ceftriaxone Sodium 1 gm/ (Sodium Chloride) 100 mls @ 200 mls/hr IV Q24H [facility] Last Admin: 05/17/18 17:03 Dose: 200 mls/hr Levalbuterol HCl (Xopenex) 1.25 mg NEB Q8HRRT [facility] Last Admin: 05/18/18 05:38 Dose: 1.25 mg Levalbuterol HCl (Xopenex) 0.63 mg NEB Q4HRRT PRN PRN Reason: Shortness of Breath Levothyroxine Sodium (Synthroid) 88 mcg PO ACBREAKFAST [facility] Last Admin: 05/18/18 06:53 Dose: 88 mcg Lidocaine HCl (Lmx 4 Cream With Tegaderm) 1 each TOP Q6H PRN PRN Reason: unknown Lorazepam (Ativan) 2 mg IVPUSH Q4H PRN PRN Reason: Seizures Lorazepam (Ativan) 0.5 mg IV Q6H PRN PRN Reason: Anxiety Magnesium Sulfate (Pharmacy To Dose - Magnesium Replacement) 1 dose .XX ASDIRECTED [facility] Metoprolol Tartrate (Lopressor) 5 mg IVPUSH Q4H PRN PRN Reason: Tachycardia Last Admin: 05/14/18 16:28 Dose: 5 mg Multivitamins (Thera) 1 each PO DAILY [facility] Last Admin: 05/18/18 08:23 Dose: 1 each Ondansetron HCl (Zofran) 4 mg IV Q6H PRN PRN Reason: Nausea/Vomiting Olopatadine 1 Drop 0 each EYEBOTH BID PRN PRN Reason: allergy symptoms Polyethylene Glycol (Miralax) 17 gm PO DAILY [facility] Last Admin: 05/17/18 08:51 Dose: 17 gm Potassium Chloride (Pharmacy To Dose - Potassium Replacement) 1 dose .XX ASDIRECTED [facility] Primidone (Mysoline) 250 mg PO BEDTIME [facility] Primidone (Mysoline) 50 mg PO BEDTIME [facility] Propranolol HCl (Inderal) 40 mg PO BID [facility] Last Admin: 05/18/18 08:23 Dose: 40 mg Saccharomyces Boulardii (Florastor) 250 mg PO DAILY [facility] Last Admin: 05/18/18 08:23 Dose: 250 mg Senna/Docusate Sodium (Senna Plus) 1 tab PO BID PRN PRN Reason: Constipation Sertraline HCl (Zoloft) 25 mg PO DAILY [facility] Last Admin: 05/18/18 08:23 Dose: 25 mg Sodium Chloride (Saline Flush) 10 ml FLUSH ASDIRECTED PRN PRN Reason: Keep Vein Open Last Admin: 05/13/18 18:39 Dose: 10 ml Temazepam (Restoril) 7.5 mg PO BEDTIME PRN PRN Reason: Sleep Last Admin: 05/17/18 21:02 Dose: 7.5 mg Vit A/Vit C/Vit E/Selen/Cu/Zn/Lutei (Icaps Mv) 1 tab PO DAILY [facility] Last Admin: 05/18/18 08:23 Dose: 1 tab Discontinued Medications Acetaminophen (Tylenol) 650 mg RECTAL NOW ONE Stop: 05/13/18 17:53 Last Admin: 05/13/18 18:24 Dose: 650 mg Acetaminophen (Tylenol) 325 mg PO ASDIRECTED PRN PRN Reason: Pain Hydrocodone Bitart/Acetaminophen ([place] 325-5 Mg) 1 tab PO Q4H PRN PRN Reason: Pain (moderate 4-6) Albuterol (Proventil Neb Soln) 2.5 mg NEB TIDRT [facility] Last Admin: 05/16/18 13:00 Dose: 2.5 mg Albuterol/Ipratropium (Duoneb 3.0-0.5 Mg/3 Ml) 3 ml NEB ONETIME ONE Stop: 05/13/18 17:52 Last Admin: 05/13/18 18:01 Dose: 3 ml Albuterol/Ipratropium (Duoneb 3.0-0.5 Mg/3 Ml) 3 ml NEB Q4H PRN PRN Reason: Shortness Of Breath/wheezing Last Admin: 05/16/18 08:51 Dose: 3 ml Azithromycin (Zithromax) 250 mg PO BID [facility] Ferrous Sulfate (Ferrous Sulfate) 325 mg PO DAILY [facility] Last Admin: 05/15/18 09:27 Dose: 325 mg Hydromorphone HCl (Dilaudid) 0.25 mg IVPUSH Q2H PRN PRN Reason: Pain (severe 7-10) Ceftriaxone Sodium 2 gm/ (Sodium Chloride) 100 mls @ 100 mls/hr IV ONETIME ONE Stop: 05/13/18 18:50 Last Admin: 05/13/18 18:38 Dose: 100 mls/hr Sodium Chloride (Normal Saline) 1,000 mls @ 75 mls/hr IV ASDIRECTED [facility] Last Admin: 05/14/18 13:44 Dose: 75 mls/hr Sodium Chloride (Normal Saline) 500 mls @ 1,000 mls/hr IV .BOLUS ONE Stop: 05/13/18 19:45 Last Admin: 05/13/18 22:14 Dose: Not Given Azithromycin 500 mg/ Sodium (Chloride) 250 mls @ 250 mls/hr IV DAILY [facility] Last Admin: 05/15/18 09:28 Dose: 250 mls/hr Levofloxacin/Dextrose 750 mg/ (Premix) 150 mls @ 100 mls/hr IV Q24H [facility] Last Admin: 05/14/18 01:07 Dose: 100 mls/hr Iron Sucrose 200 mg/ Sodium (Chloride) 260 mls @ 83 mls/hr IV ONETIME ONE Stop: 05/17/18 10:39 Last Admin: 05/17/18 19:51 Dose: Not Given Ferric Sodium Gluconate Complex 250 mg/ Sodium Chloride 120 mls @ 60 mls/hr IV ONETIME ONE Stop: 05/17/18 09:44 Last Admin: 05/17/18 19:51 Dose: Not Given Ferric Sodium Gluconate Complex 250 mg/ Sodium Chloride 120 mls @ 60 mls/hr IV ONETIME ONE Stop: 05/17/18 10:59 Last Admin: 05/17/18 08:50 Dose: 60 mls/hr Magnesium Oxide (Magnesium Oxide) 800 mg PO ONETIME ONE Stop: 05/17/18 09:01 Last Admin: 05/17/18 12:09 Dose: 800 mg Non-Formulary Medication (Denosumab [Prolia]) 60 mg SUBCUT Q180D [facility] Last Admin: 05/14/18 00:26 Dose: Not Given Primidone (Mysoline) 250 mg PO DAILY [facility] Last Admin: 05/14/18 09:24 Dose: 250 mg Primidone (Mysoline) 50 mg PO DAILY [facility] Last Admin: 05/14/18 21:29 Dose: 50 mg Primidone (Mysoline) 250 mg PO DAILY@0600 [facility] Last Admin: 05/18/18 06:53 Dose: 250 mg Primidone (Mysoline) 50 mg PO BEDTIME DENITA Primidone (Mysoline) 100 mg PO BEDTIME [facility] Last Admin: 05/15/18 21:19 Dose: 100 mg Primidone (Mysoline) 150 mg PO BEDTIME [facility] Last Admin: 05/17/18 21:01 Dose: 150 mg Propranolol HCl (Inderal) 20 mg PO ONETIME ONE Stop: 05/16/18 12:09 Last Admin: 05/16/18 12:17 Dose: 20 mg <Frederic Espana - Last Filed: 05/18/18 17:17> Discharge Summary - Hospital Course HPI Initial Comments: Sena Rodriguez is a 88 yo female ho was brought in by local EMS from [facility] with a fever and cough. I am also reportedly originally called for right-sided weakness and on arrival found the patient was shakingand warm. He checked It was 106.9 They removed her sweater and gave her fluids in an attempt to decrease this temp. They found she was confused but was moving all extremities. She has history of MAC and is reportedly on Zithromax at alternating on and off dosages, although her pharmacy reports she has not filled this since March. Apparently after she began having a productive cough. It is reported Dr. Candelaria told her to double her Zithromax dose, although it is unclear if this is accurate. She had been doing well up until about an hour before EMS was called. She has a productive cough, fever, chills, and shortness of breath, however no abdominal pain nausea or vomiting. In the ED temp was quite high at 104.3 rectally. Pulse is 108. Respirations 24. Blood pressure is 135/68. Pulse ox 98%. Labs are obtained: WBC elevated at 14.45. Hemoglobin low at 9.0. Hematocrit low at 28.2. She was normocytic. Platelets are high at 524,000. Neutrophils are elevated at 83.6%. Sodium is low at 135. Potassium 4.3. Chloride 99. Carbon dioxide 29. Anion gap 11.3. BUN is 24. Creatinine 0.9. EGFR is 59. Glucose is high at 123. Lactic acid 0.6. Calcium 8.9. AST is 25, ALT 22, alkaline phosphatase 83. Troponin is negative at less than 0.017. CRP is very high at 17.8. Protein 7.4. Albumin is slightly low at 2.7. She is given a 500 mL saline bolus and started on normal saline at 125 mils an hour. She's given 650 rectal Tylenol and a DuoNeb. 2 g Rocephin is started IV. On arrival stroke alert was called and she was sent to CT. Head CT showed nothing acute. Chest x-ray is obtained and interpreted by Dr. Carroll as "pleural thickening and scattered parietal densities noted within the right chest which appear to be chronic. Decreased densities noted with left base from prior exam. Lung markings increased with a left chest which appear stable. No acute parenchymal changes appreciated. 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 She is a DNR. Her PCP is Dr. Candelaria. Diagnosis: Stroke: No - Discharge Data Discharge Date: 05/18/18 (Admit date: 05/13/18) - Discharge Diagnosis/Problem(s) (1) Pneumonia SNOMED Code(s): 837229825 ICD Code: J18.9 - PNEUMONIA, UNSPECIFIED ORGANISM Status: Acute Priority : High Qualifiers: Pneumonia type: due to unspecified organism Laterality: right Lung location: upper lobe of lung Qualified Code(s): J18.1 - Lobar pneumonia, unspecified organism (2) Hypoxia SNOMED Code(s): 589623594 ICD Code: R09.02 - HYPOXEMIA Status: Acute Priority: High (3) Interstitial lung disease SNOMED Code(s): 998086326 ICD Code: J84.9 - INTERSTITIAL PULMONARY DISEASE, UNSPECIFIED Status: Chronic Priority: High (4) Mycobacterium avium complex SNOMED Code(s): 631176886 ICD Code: A31.0 - PULMONARY MYCOBACTERIAL INFECTION Status: Chronic Priority: High (5) Essential tremor SNOMED Code(s): 460987887 ICD Code: G25.0 - ESSENTIAL TREMOR Status: Chronic Priority: Low (6) Hypothyroidism SNOMED Code(s): 79983970 ICD Code: E03.9 - HYPOTHYROIDISM, UNSPECIFIED Status: Chronic Priority: Low Qualifiers: Hypothyroidism type: unspecified Qualified Code(s): E03.9 - Hypothyroidism , unspecified (7) Bronchiectasis SNOMED Code(s): 91825670 ICD Code: J47.9 - BRONCHIECTASIS, UNCOMPLICATED Status: Chronic Priority : High Qualifiers: Bronchiectasis type: with acute lower respiratory infection Qualified Code( s): J47.0 - Bronchiectasis with acute lower respiratory infection - Patient Summary/Data Consults: Consultations 05/13/18 22:44 Consult to Case Management/Pharmaceutical Sales [CONS] Routine Consult to Spiritual Care [CONS] Routine OT Evaluation and Treatment [CONS] Routine PT Evaluation and Treatment [CONS] Routine Respiratory Care Assess and Treatment [CONS] Routine Labs Pending at D/C: None Recommended Follow-up Testing/Procedures: Follow-up with PCP within 7-10 days of discharge Recommending follow-up with ID and/or pulmonology at next available appointment. 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 Candelaria due to productive cough -Pharmacy reports last refilled in March - She is not seeing ID or Pulmonology by personal choice -ED note states she is following someone in [place] however daughter reports this is not true - Given Rocephin/Azithromycin in ED, Switched to IV Levaquin however was given 10 day fluoroquinolone Rx recently -Good response to levaquin last admission -Will resume rocephin - IS/FV, Supplemental O2, Decongestant/Expectorant; Airway suction to remove copious oral secretions PRN - Respiratory panel - All negative - Mycoplasma, strep pneumo - negative - Blood cultures - Negative after4 days - Sputum culture: Normal respiratory juan - Lactic acid WNL - WBC 14.45--> 7.38-->12.73 --> 14.43--> 13.51-->11.53 - CRP 17.8-->16.0-->21.6--> 24.2--> 27.4-->28.2 - CXR on 05/13/18: Multiple changes which appear to be chronic; Nothing acute - Repeat CXR shows chronic lung changes and improved diffuse opacities form previous imaging study - RT following - Ambulate - Probiotic as ordered Essential Tremors, Improved - Continue Primidone 250 mg po Daily and 150 mg po HS - Inderal 40 mg po BID as adjunct - Levalbuterol for PRN and scheduled breathing treatment Anemia - History of chronic TREVOR; on iron supplementation 325mg Daily - Baseline Hgb appears to be around 8-9 - Hgb 9.0-->7.7-->8.3-->8.8--> 8.2--> 8.2-->8.4 - Likely worsened by IV fluids - Iron panel 05/15/18: Iron 10, TIBC 203, % saturation 5, Transferrin 162 - IV infusion of iron x1 today - Monitor for constipation Resolved: Hypomagnesemia - Mg is 1.7-->2.0 - Likely 2/2 inadequate intake - Replete and monitor Chronic: HTN Interstitial Lung Disease/Pulmonary Fibrosis Bronchiectasis Kyphosis Hypothyroidism Anemia with TREVOR Hx/o MAC infection Osteoporosis Depression Plan: She is clinically much better today than yesterday Continue current treatment Routine AM Labs Continue PT/OT/RT SW/CM for discharge planning; Resides in [facility] DVT prophylaxis: JAILENE Lomax, ambulate Obtain old records End of life care explored at last visit, consider again Code status: DNR/DNI; PCP: Dr. Candelaria LOS > 96 hrs due to slow response to treatment. Prognosis remains guarded. Overall Sena did ok and returned to baseline. She was treated with 5 days of rocephin although no sputum culture was able to be obtained with any results. She was given azithromycin while here and discharged on her normal home dose. Her WBC trended down although her CRP trended up. Clinically she looked very good prior to discharge. He infectious workup was otherwise negative. She has been utilizing suction as she reports she has a similar setup at her [facility]. She has been anemic and appeared near baseline prior to discharge. Iron panel was obtained and results are above. She is on supplementation. Iron infusion x1 was given while here. Her magnesium was low and was supplemented. Her tremors did appear to worsen while here. Some discrepancies were noted between her last hospital notes from last month and her medication list from [place]. While here she was given 250 primidone daily and her night dose was increased to 150mg. She was getting albuterol nebulizers which likely increased her tremor severity. She was switched to xopenex. Dr. Macias started her on Inderol 40mg BID and parameters to hold for BP under 100/50 or HR under 60 were added prior to discharge. She reports symptoms are at baseline prior to discharge. Medications were continued with her primidone dosage mirroring her last clinic visit discharge instructions. She was instructed to follow-up with her PCP within 7-10 days of discharge, sooner if needed. We again discussed ID and/or pumonology consult at discharge as she has reportedly been refusing. She continues to refuse this. She was discharged today back to [place]. She will require home health services as listed. - Patient Instructions Diet: Usual Diet as Tolerated Activity: As Tolerated Driving: Do Not Drive Notify Provider of: Fever, Increased Pain, Nausea and/or Vomiting - Discharge Plan *PRESCRIPTION DRUG MONITORING PROGRAM REVIEWED*: No *COPY OF PRESCRIPTION DRUG MONITORING REPORT IN PATIENT CARLOS: No - Discharge Summary/Plan Comment DC Time >30 min.: Yes (54 mins) - General Info Date of Service: 05/18/18 Admission Dx/Problem (Free Text: Admission Diagnosis/Problem Admission Diagnosis/Problem Pneumonia Subjective Update: In to see Sena. She is sitting in the chair and looks much better. She reports she feels better and would like to go home. Her WBC is improved however her CRP is slightly worse. She reports she is at baseline with her respiratory status. She has been utilizing the suction in her room herself and managing this well. It is reported she has this at [facility] and she even says she sets it up here "like how she has it at home." Daughter was contacted to discuss discharge plan and she is in agreement. Her tremors are improved today. There has been lots of discussion of the patients primidone. The clinic notes and the [facility] have different administration times listed. Will continue based on clinic visit notes as she had a recent visit with her PCP. No patient or nursing concerns. Functional Status: Reports: Pain Controlled, Tolerating Diet, Ambulating, Urinating, Incentive Spirometry, Other (Acapella ). Denies: New Symptoms - Review of Systems General: Reports: No Symptoms. Denies: Fever, Weakness, Fatigue, Malaise HEENT: Reports: No Symptoms Pulmonary: Reports: Shortness of Breath (Baseline ), Cough (Baseline ), Sputum ( Baseline), Wheezing (Baseline) Cardiovascular: Reports: Dyspnea on Exertion. Denies: Chest Pain, Palpitations , Lightheadedness Gastrointestinal: Reports: No Symptoms. Denies: Abdominal Pain, Constipation, Diarrhea, Nausea, Vomiting Genitourinary: Reports: No Symptoms Musculoskeletal: Reports: No Symptoms Skin: Reports: No Symptoms Neurological: Reports: No Symptoms. Denies: Confusion Psychiatric: Reports: No Symptoms - Patient Data Vitals - Most Recent: Last Vital Signs Temp 98.2 F 05/18/18 11:28 Pulse 71 05/18/18 11:28 Resp 28 H 05/18/18 11:28 BP 116/56 L 05/18/18 11:28 Pulse Ox 99 05/18/18 11:28 Weight - Most Recent: 110 lb 1.6 oz I&O - Last 24 hours: Intake & Output 05/17/18 05/18/18 05/18/18 22:59 06:59 14:59 Intake Total 815 400 600 Output Total 100 Balance 815 300 600 Lab Results - Last 24 hrs: Laboratory Results - last 24 hr 05/18/18 05/18/18 Range/Units 06:14 06:14 WBC 11.53 H (3.98-10.04) K/mm3 RBC 2.89 L (3.98-5.22) M/mm3 Hgb 8.4 L (11.2-15.7) gm/L Hct 26.3 L (34.1-44.9) % MCV 91.0 (79.4-94.8) fl MCH 29.1 (25.6-32.2) pg MCHC 31.9 L (32.2-35.5) g/dl RDW Std Deviation 50.3 H (36.4-46.3) fL Plt Count 464 H (182-369) K/mm3 MPV 9.7 (9.4-12.3) fl Neut % (Auto) 80.5 H (34.0-71.1) % Lymph % (Auto) 6.1 L (19.3-51.7) % [place] % (Auto) 11.9 (4.7-12.5) % Eos % (Auto) 0.8 (0.7-5.8) Baso % (Auto) 0.4 (0.1-1.2) % Neut # (Auto) 9.29 H (1.56-6.13) K/mm3 Lymph # (Auto) 0.70 L (1.18-3.74) K/mm3 [place] # (Auto) 1.37 H (0.24-0.36) K/mm3 Eos # (Auto) 0.09 (0.04-0.36) K/mm3 Baso # (Auto) 0.05 (0.01-0.08) K/mm3 Manual Slide Review Abnormal smear Sodium 134 L (136-145) mEq/L Potassium 4.1 (3.5-5.1) mEq/L Chloride 101 (98-107) mEq/L Carbon Dioxide 30 (21-32) mEq/L Anion Gap 7.1 (5-15) BUN 19 H (7-18) mg/dL Creatinine 0.9 (0.55-1.02) mg/dL Est Cr Clr Drug Dosing 34.72 mL/min Estimated GFR (MDRD) 59 (>60) mL/min BUN/Creatinine Ratio 21.1 H (14-18) Glucose 97 (83-115) mg/dL Calcium 8.9 (8.5-10.1) mg/dL Magnesium 2.0 (1.8-2.4) mg/dl C-Reactive Protein 28.2 H* (<1.0) mg/dL YOHAN Results - Last 24 hrs: Microbiology 05/14/18 15:43 Gram Stain - Final Sputum - Expectorated Sputum Culture - Preliminary 05/13/18 18:18 Aerobic Blood Culture - Preliminary Blood - Venous - Lab Draw NO GROWTH AFTER 4 DAYS Anaerobic Blood Culture - Preliminary NO GROWTH AFTER 4 DAYS 05/13/18 18:12 Aerobic Blood Culture - Preliminary Blood - Venous NO GROWTH AFTER 4 DAYS Anaerobic Blood Culture - Preliminary NO GROWTH AFTER 4 DAYS Med Orders - Current: Current Medications Acetaminophen (Tylenol) 650 mg PO Q4H PRN PRN Reason: Pain (mild 1-3) Last Admin: 05/17/18 21:00 Dose: 650 mg Amlodipine Besylate (Norvasc) 2.5 mg PO DAILY [facility] Last Admin: 05/18/18 08:23 Dose: 2.5 mg Artificial Tears (Artificial Tears Ointment) 0 gm EYEBOTH BEDTIME PRN PRN Reason: Dry Eyes Artificial Tears (Isopto Tears 0.5% Ophth Soln) 0 ml EYEBOTH TID [facility] Last Admin: 05/18/18 08:24 Dose: 1 drop Azithromycin (Zithromax) 500 mg PO DAILY [facility] Last Admin: 05/18/18 08:23 Dose: 500 mg Bisacodyl (Dulcolax) 5 mg PO DAILY PRN PRN Reason: Constipation Calcium Carbonate (Calcium Carbonate/Vitamin D 600 Mg-200 Unit) 1 tab PO BID [facility] Last Admin: 05/18/18 08:23 Dose: 1 tab Docusate Sodium (Colace) 100 mg PO BID PRN PRN Reason: Constipation Ferrous Sulfate (Ferrous Sulfate) 325 mg PO BID@1100,1700 [facility] Last Admin: 05/18/18 10:59 Dose: 325 mg Fish Oil (Fish Oil) 1 gm PO DAILY [facility] Last Admin: 05/18/18 08:23 Dose: 1 gm Guaifenesin (Mucinex) 600 mg PO BID [facility] Last Admin: 05/18/18 08:23 Dose: 600 mg Guaifenesin/Phenylephrine HCl (Robitussin Dm) 5 ml PO TID@0700,1400,2100 PRN PRN Reason: Cough Hydralazine HCl (Apresoline) 10 mg IVPUSH Q4H PRN PRN Reason: Hypertension Hydrocortisone (Hydrocortisone 1% Crm) 0 gm TOP TID PRN PRN Reason: Hemorrhoids Hydromorphone HCl (Dilaudid) 0.25 mg IVPUSH Q2H PRN PRN Reason: Pain (severe 7-10) Promethazine HCl 6.25 mg/ (Sodium Chloride) 50.25 mls @ 100 mls/hr IV Q6H PRN PRN Reason: Nausea/Vomiting Ceftriaxone Sodium 1 gm/ (Sodium Chloride) 100 mls @ 200 mls/hr IV Q24H [facility] Last Admin: 05/17/18 17:03 Dose: 200 mls/hr Levalbuterol HCl (Xopenex) 1.25 mg NEB Q8HRRT [facility] Last Admin: 05/18/18 05:38 Dose: 1.25 mg Levalbuterol HCl (Xopenex) 0.63 mg NEB Q4HRRT PRN PRN Reason: Shortness of Breath Levothyroxine Sodium (Synthroid) 88 mcg PO ACBREAKFAST [facility] Last Admin: 05/18/18 06:53 Dose: 88 mcg Lidocaine HCl (Lmx 4 Cream With Tegaderm) 1 each TOP Q6H PRN PRN Reason: unknown Lorazepam (Ativan) 2 mg IVPUSH Q4H PRN PRN Reason: Seizures Lorazepam (Ativan) 0.5 mg IV Q6H PRN PRN Reason: Anxiety Magnesium Sulfate (Pharmacy To Dose - Magnesium Replacement) 1 dose .XX ASDIRECTED [facility] Metoprolol Tartrate (Lopressor) 5 mg IVPUSH Q4H PRN PRN Reason: Tachycardia Last Admin: 05/14/18 16:28 Dose: 5 mg Multivitamins (Thera) 1 each PO DAILY [facility] Last Admin: 05/18/18 08:23 Dose: 1 each Ondansetron HCl (Zofran) 4 mg IV Q6H PRN PRN Reason: Nausea/Vomiting Olopatadine 1 Drop 0 each EYEBOTH BID PRN PRN Reason: allergy symptoms Polyethylene Glycol (Miralax) 17 gm PO DAILY [facility] Last Admin: 05/17/18 08:51 Dose: 17 gm Potassium Chloride (Pharmacy To Dose - Potassium Replacement) 1 dose .XX ASDIRECTED [facility] Primidone (Mysoline) 250 mg PO DAILY@0600 [facility] Last Admin: 05/18/18 06:53 Dose: 250 mg Primidone (Mysoline) 150 mg PO BEDTIME [facility] Last Admin: 05/17/18 21:01 Dose: 150 mg Propranolol HCl (Inderal) 40 mg PO BID [facility] Last Admin: 05/18/18 08:23 Dose: 40 mg Saccharomyces Boulardii (Florastor) 250 mg PO DAILY [facility] Last Admin: 05/18/18 08:23 Dose: 250 mg Senna/Docusate Sodium (Senna Plus) 1 tab PO BID PRN PRN Reason: Constipation Sertraline HCl (Zoloft) 25 mg PO DAILY [facility] Last Admin: 05/18/18 08:23 Dose: 25 mg Sodium Chloride (Saline Flush) 10 ml FLUSH ASDIRECTED PRN PRN Reason: Keep Vein Open Last Admin: 05/13/18 18:39 Dose: 10 ml Temazepam (Restoril) 7.5 mg PO BEDTIME PRN PRN Reason: Sleep Last Admin: 05/17/18 21:02 Dose: 7.5 mg Vit A/Vit C/Vit E/Selen/Cu/Zn/Lutei (Icaps Mv) 1 tab PO DAILY [facility] Last Admin: 05/18/18 08:23 Dose: 1 tab Discontinued Medications Acetaminophen (Tylenol) 650 mg RECTAL NOW ONE Stop: 05/13/18 17:53 Last Admin: 05/13/18 18:24 Dose: 650 mg Acetaminophen (Tylenol) 325 mg PO ASDIRECTED PRN PRN Reason: Pain Hydrocodone Bitart/Acetaminophen ([place] 325-5 Mg) 1 tab PO Q4H PRN PRN Reason: Pain (moderate 4-6) Albuterol (Proventil Neb Soln) 2.5 mg NEB TIDRT [facility] Last Admin: 05/16/18 13:00 Dose: 2.5 mg Albuterol/Ipratropium (Duoneb 3.0-0.5 Mg/3 Ml) 3 ml NEB ONETIME ONE Stop: 05/13/18 17:52 Last Admin: 05/13/18 18:01 Dose: 3 ml Albuterol/Ipratropium (Duoneb 3.0-0.5 Mg/3 Ml) 3 ml NEB Q4H PRN PRN Reason: Shortness Of Breath/wheezing Last Admin: 05/16/18 08:51 Dose: 3 ml Azithromycin (Zithromax) 250 mg PO BID [facility] Ferrous Sulfate (Ferrous Sulfate) 325 mg PO DAILY [facility] Last Admin: 05/15/18 09:27 Dose: 325 mg Hydromorphone HCl (Dilaudid) 0.25 mg IVPUSH Q2H PRN PRN Reason: Pain (severe 7-10) Ceftriaxone Sodium 2 gm/ (Sodium Chloride) 100 mls @ 100 mls/hr IV ONETIME ONE Stop: 05/13/18 18:50 Last Admin: 05/13/18 18:38 Dose: 100 mls/hr Sodium Chloride (Normal Saline) 1,000 mls @ 75 mls/hr IV ASDIRECTED [facility] Last Admin: 05/14/18 13:44 Dose: 75 mls/hr Sodium Chloride (Normal Saline) 500 mls @ 1,000 mls/hr IV .BOLUS ONE Stop: 05/13/18 19:45 Last Admin: 05/13/18 22:14 Dose: Not Given Azithromycin 500 mg/ Sodium (Chloride) 250 mls @ 250 mls/hr IV DAILY [facility] Last Admin: 05/15/18 09:28 Dose: 250 mls/hr Levofloxacin/Dextrose 750 mg/ (Premix) 150 mls @ 100 mls/hr IV Q24H [facility] Last Admin: 05/14/18 01:07 Dose: 100 mls/hr Iron Sucrose 200 mg/ Sodium (Chloride) 260 mls @ 83 mls/hr IV ONETIME ONE Stop: 05/17/18 10:39 Last Admin: 05/17/18 19:51 Dose: Not Given Ferric Sodium Gluconate Complex 250 mg/ Sodium Chloride 120 mls @ 60 mls/hr IV ONETIME ONE Stop: 05/17/18 09:44 Last Admin: 05/17/18 19:51 Dose: Not Given Ferric Sodium Gluconate Complex 250 mg/ Sodium Chloride 120 mls @ 60 mls/hr IV ONETIME ONE Stop: 05/17/18 10:59 Last Admin: 05/17/18 08:50 Dose: 60 mls/hr Magnesium Oxide (Magnesium Oxide) 800 mg PO ONETIME ONE Stop: 05/17/18 09:01 Last Admin: 05/17/18 12:09 Dose: 800 mg Non-Formulary Medication (Denosumab [Prolia]) 60 mg SUBCUT Q180D [facility] Last Admin: 05/14/18 00:26 Dose: Not Given Primidone (Mysoline) 250 mg PO DAILY [facility] Last Admin: 05/14/18 09:24 Dose: 250 mg Primidone (Mysoline) 50 mg PO DAILY [facility] Last Admin: 05/14/18 21:29 Dose: 50 mg Primidone (Mysoline) 50 mg PO BEDTIME [facility] Primidone (Mysoline) 100 mg PO BEDTIME [facility] Last Admin: 05/15/18 21:19 Dose: 100 mg Propranolol HCl (Inderal) 20 mg PO ONETIME ONE Stop: 05/16/18 12:09 Last Admin: 05/16/18 12:17 Dose: 20 mg - Exam Quality Assessment: Reports: Supplemental Oxygen (Baseline 2L ), DVT Prophylaxis General: Reports: Alert, Oriented, Cooperative, No Acute Distress HEENT: Reports: Pupils Equal, Pupils Reactive, EOMI, Mucous Membr. Moist/[place] Neck: Reports: Supple, Trachea Midline, No JVD Lungs: Reports: Normal Respiratory Effort, Rhonchi Cardiovascular: Reports: Regular Rate, Regular Rhythm GI/Abdominal Exam: Normal Bowel Sounds, Soft, Non-Tender, No Distention, No Abnormal Bruit (Female) Exam: Deferred Rectal (Female) Exam: Deferred Back Exam: Reports: Normal Inspection, Full Range of Motion Extremities: Normal Inspection, Normal Range of Motion, Non-Tender, No Pedal Edema, Normal Capillary Refill Skin: Reports: Warm, Dry, Intact Neurological: Reports: No New Focal Deficit Psy/Mental Status: Reports: Alert, Normal Affect, Normal Mood
[2018-05-18] MEDS ORDERED: Primidone 250 MG Tab PO SCH (21:00)
[2018-05-19] MEDS ORDERED: Primidone 50 MG Tab PO SCH (21:00)
== END 2018-05-18 14:03 | disposition other institution (70) | DRG 194 ==
LOC: JD.ED 17:44 → JD.MS 20:20
PROVIDERS: ADMIT Internal Medicine; ATTEND Internal Medicine
DX: A41.9 Sepsis, unspecified organism (principal); J18.1 Lobar pneumonia, unspecified organism; J84.9 Interstitial pulmonary disease, unspecified; J47.0 Bronchiectasis with acute lower respiratory infection; K59.09 Other constipation; M81.0 Age-related osteoporosis without current pathological fracture; D64.9 Anemia, unspecified; G25.0 Essential tremor; J84.10 Pulmonary fibrosis, unspecified; D50.9 Iron deficiency anemia, unspecified; E83.42 Hypomagnesemia; R53.1 Weakness; R41.0 Disorientation, unspecified; R05 Cough; R50.9 Fever, unspecified; R06.02 Shortness of breath; I10 Essential (primary) hypertension; E03.9 Hypothyroidism, unspecified; F32.9 Major depressive disorder, single episode, unspecified; R09.02 Hypoxemia; H91.90 Unspecified hearing loss, unspecified ear; M40.209 Unspecified kyphosis, site unspecified; Z99.81 Dependence on supplemental oxygen; Z91.048 Other nonmedicinal substance allergy status; Z79.899 Other long term (current) drug therapy; Z87.440 Personal history of urinary (tract) infections; Z85.828 Personal history of other malignant neoplasm of skin; Z66 Do not resuscitate
CPT/HCPCS: 36415; 70450; 71045; 80053; 81001; 83605; 84484; 85025; 86140; 86738; 87040 ×2; 87070; 87205; 94640; 96361; 96365; 99285; A9270; J0696; J7030; J7040; J7050; 71046; 71046-26; 80048; 83540; 83735; 84466; 85014; 85018; 87486; 87493; 87581; 87632; 87641; 87798; 87899; 94667; 94668; 94761; 97110-GP; 97116-GP; 97161-GP; 97165-GO; 97530-GO; 97530-GP; J0456; J1956; J2916; J3490; J7612-GY; J7620-GY

== ENCOUNTER 2018-06-03 16:25 | Inpatient (IN) | payer MEDICARE, OTHER, MEDICAID ==
[2018-06-03] MEDS ORDERED: Sodium Chloride 0.9% 1,000 ML IV ONE (17:21)
--- NOTE | 2018-06-03 17:28 | EDM.PDOC ---
ED HPI GENERAL MEDICAL PROBLEM - General Chief Complaint: Respiratory Problem Stated Complaint: [facility] Time Seen by Provider: 06/03/18 17:12 - History of Present Illness INITIAL COMMENTS - FREE TEXT/NARRATIVE: This is 88-year-old female accompanied by family member who was brought in by the ambulance to the emergency department for evaluation of chest discomfort. Patient is living at assisted living facility, where primary caregiver noted to have temperature elevation earlier this morning and noted that patient is breathing faster than normal. Patient was recently admitted to the hospital for pneumonia. Currently patient is complaining of discomfort to her upper chest which she rated her discomfort at about 4 on a scale of 0-10. Her pain has no radiation. No specific aggravating or alleviating factors contributed to her pain. Pain is severe with shortness of breath. Patient is using oxygen 2 L/m via nasal cannula at home. Denies any recent sick contacts or traveling. Denies any night sweats, chills, nausea vomiting, abdominal pain, back pain, headache, dizziness. Patient family denies any other concerns at this time. - Related Data Allergies Allergy/AdvReac Type Severity Reaction Status Date / Time grass pollen Allergy Not Listed Verified 05/13/18 18:50 mold Allergy Not Listed Verified 05/13/18 18:50 Home Meds: Home Meds Acetaminophen [Tylenol] 325 mg PO Q6HR PRN 11/17/17 [History] Albuterol Sulfate 2.5 mg IH TID 11/17/17 [History] Calcium Carbonate/Vitamin D3 [Calcium 600 + Vit D Tablet] 1 each PO BID [History] Denosumab [Prolia] 60 mg SUBCUT Q180D 11/17/17 [History] Ferrous Sulfate 325 mg PO DAILY 11/17/17 [History] Fish Oil/[place]-3 Fatty Acids [Fish Oil 1,000 MG] 1 each PO DAILY 11/17/17 [ History] Hydrocortisone [Preparation H] 1 applic TP TID PRN 11/17/17 [History] I-Darnell With Lutein. 1 cap PO DAILY 11/17/17 [History] L.acidop,Vasquez,Lac,Rha/B.lac,Deon [Advanced Probiotic Capsule] 1 cap PO DAILY 11/17 [History] Levothyroxine [Synthroid] 88 mcg PO DAILY 11/17/17 [History] Lidocaine [Anecream] 1 applic TP Q6H PRN 11/17/17 [History] Mineral Oil/Petrolatum,White [Soothe Night Time Lub Eye Oint] 1 applic EYEBOTH BEDTIME PRN 11/17/17 [History] Multivitamin with Minerals [Multivitamins with Minerals] 1 each PO DAILY [History] Olopatadine [Patanol 0.1% Ophth Soln] 1 drop EYEBOTH BID PRN 11/17/17 [History] Polyethylene Glycol 3350 [MiraLAX] 17 gm PO DAILY 11/17/17 [History] Primidone 50 mg PO BEDTIME 11/17/17 [History] Primidone 250 mg PO BEDTIME 11/17/17 [History] Propylene Glycol/Peg 400 [Systane 0.3-0.4% Eye Drops] 1 drop EYEBOTH TID [History] Sertraline [Zoloft] 25 mg PO DAILY 11/17/17 [History] amLODIPine Besylate [Norvasc] 2.5 mg PO DAILY 11/17/17 [History] guaiFENesin [Mucinex] 600 mg PO BID 11/17/17 [History] Azithromycin [Zithromax] 250 mg PO DAILY 05/13/18 [History] Propranolol [Inderal] 40 mg PO BID #30 tablet 05/18/18 [Rx] Past Medical History HEENT History: Reports: Hard of Hearing Other HEENT History: wears glasses Respiratory History: Reports: Bronchitis, Recurrent, Interstitial Lung Disease, Pneumonia, Recurrent, Other (See Below) Other Respiratory History: Pt has mycobacterium avium and has an meat specialist in [place] who follows her for this;hypoxia Gastrointestinal History: Reports: Chronic Constipation Genitourinary History: Reports: UTI, Recurrent [employer] History: Reports: Musculoskeletal History: Reports: Osteoporosis, Other (See Below) Other Musculoskeletal History: essential tremors Other Neuro History: Tremors Psychiatric History: Reports: Depression Other Endocrine/Metabolic History: hypothyroidism Hematologic History: Reports: Anemia Oncologic (Cancer) History: Reports: Basal Cell Carcinoma Dermatologic History: Reports: Other (See Below) Other Dermatologic History: basil cell carcinoma - Infectious Disease History Infectious Disease History: Reports: Other (See Below) Other Infectious Disease History: hx MAC infection, myobacterium avium intracellular infection - Past Surgical History Other HEENT Surgeries/Procedures: Hearing aid left ear only. Social & Family History - Family History Family Medical History: Noncontributory - Tobacco Use Smoking Status *Q: Never Smoker - Caffeine Use Caffeine Use: Reports: None Other Caffeine Use: unknown - Recreational Drug Use Recreational Drug Use: No - Living Situation & Occupation Living situation: Reports: , Extended Care Facility (Currently residing in) Occupation: Retired ([employer] ED ROS GENERAL - Review of Systems Review Of Systems: ROS reveals no pertinent complaints other than HPI. ED EXAM, GENERAL - Physical Exam Exam: See Below Exam Limited By: No Limitations General Appearance: Alert, WD/WN, Mild Distress Eye Exam: Bilateral Eye: EOMI, Normal Inspection, PERRL Throat/Mouth: Normal Inspection, Normal Lips, Normal Gums, Normal Oropharynx, Normal Voice, No Airway Compromise Head: Atraumatic, Normocephalic Neck: Normal Inspection, Supple Respiratory/Chest: Respiratory Distress, Rhonchi, Other (Tachypnea) Cardiovascular: Normal Peripheral Pulses, Regular Rate, Rhythm GI/Abdominal: Normal Bowel Sounds, Soft Extremities: Normal Inspection, Normal Capillary Refill Neurological: Alert, Oriented, No Motor/Sensory Deficits Psychiatric: Normal Affect, Normal Mood Skin Exam: Warm, Dry Course - Vital Signs Last Recorded V/S: Last Vital Signs Temp 37.6 C 06/03/18 16:32 Pulse 79 06/03/18 16:32 Resp 37 H 06/03/18 16:32 BP 174/68 H 06/03/18 16:32 Pulse Ox 82 L 06/03/18 16:32 - Orders/Labs/Meds Orders: Active Orders 24 hr Category Date Time Status EKG Documentation Completion [RC] STAT Care 06/03/18 17:21 Active Chest 2V [CR] Stat Exams 06/03/18 17:20 Taken PE Chest [Ang Chest] [CT] Stat Exams 06/03/18 18:15 Taken Labs: Laboratory Tests 06/03/18 06/03/18 06/03/18 Range/Units 18:00 18:00 18:00 WBC 10.99 H (3.98-10.04) K/mm3 RBC 3.15 L (3.98-5.22) M/mm3 Hgb 9.1 L (11.2-15.7) gm/L Hct 29.6 L (34.1-44.9) % MCV 94.0 (79.4-94.8) fl MCH 28.9 (25.6-32.2) pg MCHC 30.7 L (32.2-35.5) g/dl RDW Std Deviation 56.9 H (36.4-46.3) fL Plt Count 516 H (182-369) K/mm3 MPV 9.0 L (9.4-12.3) fl Neut % (Auto) 81.3 H (34.0-71.1) % Lymph % (Auto) 8.2 L (19.3-51.7) % [place] % (Auto) 8.4 (4.7-12.5) % Eos % (Auto) 1.4 (0.7-5.8) Baso % (Auto) 0.5 (0.1-1.2) % Neut # (Auto) 8.94 H (1.56-6.13) K/mm3 Lymph # (Auto) 0.90 L (1.18-3.74) K/mm3 [place] # (Auto) 0.92 H (0.24-0.36) K/mm3 Eos # (Auto) 0.15 (0.04-0.36) K/mm3 Baso # (Auto) 0.06 (0.01-0.08) K/mm3 Manual Slide Review Abnormal smear PT 11.0 (9.5-12.1) SECONDS INR 1.01 Sodium 133 L (136-145) mEq/L Potassium 4.5 (3.5-5.1) mEq/L Chloride 96 L (98-107) mEq/L Carbon Dioxide 34 H (21-32) mEq/L Anion Gap 7.5 (5-15) BUN 20 H (7-18) mg/dL Creatinine 0.9 (0.55-1.02) mg/dL Est Cr Clr Drug Dosing 34.06 mL/min Estimated GFR (MDRD) 59 (>60) mL/min BUN/Creatinine Ratio 22.2 H (14-18) Glucose 98 (83-115) mg/dL Lactic Acid (0.4-2.0) mmol/L Calcium 9.3 (8.5-10.1) mg/dL Magnesium 1.9 (1.8-2.4) mg/dl Total Bilirubin 0.2 (0.2-1.0) mg/dL AST 24 (15-37) U/L ALT 33 (14-59) U/L Alkaline Phosphatase 92 (46-116) U/L CK-MB (CK-2) < 0.5 (0-3.6) ng/ml Troponin I < 0.017 (0.00-0.056) ng/mL NT-Pro-B Natriuret Pep (0-450) pg/mL Total Protein 7.0 (6.4-8.2) g/dl Albumin 2.4 L (3.4-5.0) g/dl Globulin 4.6 gm/dL Albumin/Globulin Ratio 0.5 L (1-2) 06/03/18 06/03/18 Range/Units 18:00 18:00 WBC (3.98-10.04) K/mm3 RBC (3.98-5.22) M/mm3 Hgb (11.2-15.7) gm/L Hct (34.1-44.9) % MCV (79.4-94.8) fl MCH (25.6-32.2) pg MCHC (32.2-35.5) g/dl RDW Std Deviation (36.4-46.3) fL Plt Count (182-369) K/mm3 MPV (9.4-12.3) fl Neut % (Auto) (34.0-71.1) % Lymph % (Auto) (19.3-51.7) % [place] % (Auto) (4.7-12.5) % Eos % (Auto) (0.7-5.8) Baso % (Auto) (0.1-1.2) % Neut # (Auto) (1.56-6.13) K/mm3 Lymph # (Auto) (1.18-3.74) K/mm3 [place] # (Auto) (0.24-0.36) K/mm3 Eos # (Auto) (0.04-0.36) K/mm3 Baso # (Auto) (0.01-0.08) K/mm3 Manual Slide Review PT (9.5-12.1) SECONDS INR Sodium (136-145) mEq/L Potassium (3.5-5.1) mEq/L Chloride (98-107) mEq/L Carbon Dioxide (21-32) mEq/L Anion Gap (5-15) BUN (7-18) mg/dL Creatinine (0.55-1.02) mg/dL Est Cr Clr Drug Dosing mL/min Estimated GFR (MDRD) (>60) mL/min BUN/Creatinine Ratio (14-18) Glucose (83-115) mg/dL Lactic Acid 0.6 (0.4-2.0) mmol/L Calcium (8.5-10.1) mg/dL Magnesium (1.8-2.4) mg/dl Total Bilirubin (0.2-1.0) mg/dL AST (15-37) U/L ALT (14-59) U/L Alkaline Phosphatase (46-116) U/L CK-MB (CK-2) (0-3.6) ng/ml Troponin I (0.00-0.056) ng/mL NT-Pro-B Natriuret Pep 873 H (0-450) pg/mL Total Protein (6.4-8.2) g/dl Albumin (3.4-5.0) g/dl Globulin gm/dL Albumin/Globulin Ratio (1-2) Meds: Medications Discontinued Medications Generic Name Dose Route Start Last Admin Trade Name Freq PRN Reason Stop Dose Admin Sodium Chloride 1,000 mls @ 999 mls/hr 06/03/18 17:21 06/03/18 18:00 Normal Saline IV 06/03/18 18:21 999 mls/hr ONETIME ONE Administration Sodium Chloride 100 mls @ 4 mls/sec 06/03/18 18:43 06/03/18 20:16 Normal Saline IV 06/03/18 18:44 4 mls/sec ONETIME ONE Administration Iopamidol 100 ml 06/03/18 18:43 06/03/18 20:16 Isovue-370 (76%) IVPUSH 06/03/18 18:44 100 ml ONETIME ONE Administration - Re-Assessments/Exams Free Text/Narrative Re-Assessment/Exam: 06/03/18 19:55 Reevaluated basin at bedside. Patient appears to be resting comfortably in the bed, continuous pulse ox reading shows 100% on 2-3 L of oxygen via nasal cannula , no signs of respiratory distress noted. Breath sounds and rhonchi on the upper lobes, but no wheezes or crackles noted. Respiratory rate approximately 20 -22 breaths but may need noted. Patient denies any shortness of breath or chest pain at this time. At this time, waiting for final reading of CTA to rule out PE. 06/03/18 20:24 Hospitalist at bedside 06/03/18 21:00 The radiologist called in for the critical result of the chest CTA, which showed small pulmonary emboli in the left upper and lower lobe. Discussed this critical result with patient and family member and explained that not aggressively treat PE at this time as this could rupture the other vessels in the lungs and could possibly make patient bleeding internally and condition get worse. Patient and family member verbalize understanding of the risks of not treating with anticoagulation at this time and continue with comfort care at this time. Departure - Departure Time of Disposition: 20:36 (Hospitalist (Dr. Macias) at bedside. Spoke with him regarding patient condition and advised that patient needs to come in for long- term placement. Patient also be placed on DNR/DNI with family agreement at bedside.) Disposition: Admitted As Inpatient 67 Condition: Fair Clinical Impression: End of life care, Respiratory distress, PE (pulmonary thromboembolism) - Discharge Information - My Orders Last 24 Hours: My Active Orders 06/03/18 17:20 Chest 2V [CR] Stat 06/03/18 17:21 EKG Documentation Completion [RC] STAT 06/03/18 18:15 PE Chest [Ang Chest] [CT] Stat - Assessment/Plan Last 24 Hours: My Active Orders 06/03/18 17:20 Chest 2V [CR] Stat 06/03/18 17:21 EKG Documentation Completion [RC] STAT 06/03/18 18:15 PE Chest [Ang Chest] [CT] Stat
[2018-06-03] MEDS ORDERED: Iopamidol 755 Mg/ML 100 ML Bottle IVPUSH ONE (18:43)
[2018-06-03] MEDS ORDERED: Sodium Chloride 0.9% 100 ML IV ONE (18:43)
--- NOTE | 2018-06-03 21:40 | PCM.HP ---
H&P History of Present Illness - General Date of Service: 06/03/18 Admit Problem/Dx: End of Life Care Source of Information: Patient, Family, Old Records, Provider, RN Notes Reviewed History Limitations: Reports: Respiratory Distress - History of Present Illness Initial Comments - Free Text/Narative: This is an 87 yo elderly white female with past medical hx/o HTN, Chronic MAC Infection, Interstitial Lung Disease, Pulmonary Fibrosis, Bronchiectasis, Hypothyroidism, ET, Anemia with TREVOR, Osteoporosis, and Depression who comes in evaluation of worsening respiratory distress. She was here for similar complaints about 3 weeks ago. Her initial work up in ED shows a CBC remarkable for WBC of 10.99, RBC of 3.15, Hgb of 9.1, Hct of 29.6, MCHC of 30.7, RDW of 56.9, Platelet count of 516, MVP of 9.0, Neutrophils of 81.3%, Lymphocytes of 8.2%, Neutrophil count of 8.94, Lymphocyte count of 0.90 and Monocyte count of 0.92. Her chemistry is significant for sodium of 133, Cl of 96, CO2 of 34, BUN of 20, ProBNP of 873, and Albumin of 2.4. Her Chest CTA report reads large cavitating focus of parenchymal consolidation/mass in the right lung alone the posterior right middle lobe and right lower lobe with large cystic spaces within the infiltrate. Largest cavity located posteriorly measures 6.7 x 4.1 cm contained sent air-fluid level. Air bronchograms seen within the infiltrate and or mass. Multiple smaller irregular parenchymal opacities several of which are spiculated and not Related located in both right and left lungs. Metastatic disease not excluded. Extensive cystic and saccular bronchiectasis demonstrated bilaterally. Pulmonary emboli demonstrated with the segmental arteries the left lower lobe and the left lower lobe. No large central pulmonary emboli demonstrated. Patient's family is known well to me. We discussed care plan at this point and offered them end of life care due to end stage lung disease. Patient's family agreed. She is DNR/DNI. - Related Data Allergies/Adverse Reactions: Allergies Allergy/AdvReac Type Severity Reaction Status Date / Time grass pollen Allergy Not Listed Verified 06/03/18 22:40 mold Allergy Not Listed Verified 06/03/18 22:40 Home Medications: Home Meds Acetaminophen [Tylenol] 325 mg PO Q6HR PRN 11/17/17 [History] Albuterol Sulfate 2.5 mg IH TID 11/17/17 [History] Calcium Carbonate/Vitamin D3 [Calcium 600 + Vit D Tablet] 1 each PO BID [History] Denosumab [Prolia] 60 mg SUBCUT Q180D 11/17/17 [History] Ferrous Sulfate 325 mg PO DAILY 11/17/17 [History] Fish Oil/[place]-3 Fatty Acids [Fish Oil 1,000 MG] 1 each PO DAILY 11/17/17 [ History] Hydrocortisone [Preparation H] 1 applic TP TID PRN 11/17/17 [History] I-Darnell With Lutein. 1 cap PO DAILY 11/17/17 [History] L.acidop,Vasquez,Lac,Rha/B.lac,Deon [Advanced Probiotic Capsule] 1 cap PO DAILY 11/17 [History] Levothyroxine [Synthroid] 88 mcg PO DAILY 11/17/17 [History] Lidocaine [Anecream] 1 applic TP Q6H PRN 11/17/17 [History] Mineral Oil/Petrolatum,White [Soothe Night Time Lub Eye Oint] 1 applic EYEBOTH BEDTIME PRN 11/17/17 [History] Multivitamin with Minerals [Multivitamins with Minerals] 1 each PO DAILY [History] Olopatadine [Patanol 0.1% Ophth Soln] 1 drop EYEBOTH BID PRN 11/17/17 [History] Polyethylene Glycol 3350 [MiraLAX] 17 gm PO DAILY 11/17/17 [History] Primidone 50 mg PO BEDTIME 11/17/17 [History] Primidone 250 mg PO BEDTIME 11/17/17 [History] Propylene Glycol/Peg 400 [Systane 0.3-0.4% Eye Drops] 1 drop EYEBOTH TID [History] Sertraline [Zoloft] 25 mg PO DAILY 11/17/17 [History] amLODIPine Besylate [Norvasc] 2.5 mg PO DAILY 11/17/17 [History] guaiFENesin [Mucinex] 600 mg PO BID 11/17/17 [History] Azithromycin [Zithromax] 250 mg PO DAILY 05/13/18 [History] Propranolol [Inderal] 40 mg PO BID #30 tablet 05/18/18 [Rx] Past Medical History HEENT History: Reports: Hard of Hearing Other HEENT History: wears glasses Respiratory History: Reports: Bronchitis, Recurrent, Interstitial Lung Disease, Pneumonia, Recurrent, Other (See Below) Other Respiratory History: Pt has mycobacterium avium and has an smart energy specialist in [place] who follows her for this;hypoxia Gastrointestinal History: Reports: Chronic Constipation Genitourinary History: Reports: UTI, Recurrent 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: 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: Musculoskeletal History: Reports: Osteoporosis, Other (See Below) Other Musculoskeletal History: essential tremors Other Neuro History: Tremors Psychiatric History: Reports: Depression Other Endocrine/Metabolic History: hypothyroidism Hematologic History: Reports: Anemia Oncologic (Cancer) History: Reports: Basal Cell Carcinoma Dermatologic History: Reports: Other (See Below) Other Dermatologic History: basil cell carcinoma - Infectious Disease History Infectious Disease History: Reports: Other (See Below) Other Infectious Disease History: hx MAC infection, myobacterium avium intracellular infection - Past Surgical History Other HEENT Surgeries/Procedures: Hearing aid left ear only. Social & Family History - Family History Family Medical History: Noncontributory - Tobacco Use Smoking Status *Q: Never Smoker - Caffeine Use Caffeine Use: Reports: None Other Caffeine Use: unknown - Recreational Drug Use Recreational Drug Use: No - Living Situation & Occupation Living situation: Reports: , Extended Care Facility (Currently residing in) Occupation: Retired ([email or web address] [email or web address] H&P Review of Systems - Review of Systems: Review Of Systems: See Below Exam - Exam Exam: See Below - Vital Signs Vital Signs: Last Vital Signs Temp 37.6 C 06/03/18 16:32 Pulse 79 06/03/18 16:32 Resp 37 H 06/03/18 16:32 BP 174/68 H 06/03/18 16:32 Pulse Ox 82 L 06/03/18 16:32 Weight: 48.988 kg - Exam Quality Assessment: Supplemental Oxygen General: Alert, Cooperative, Moderate Distress HEENT: Conjunctiva Clear, EACs Clear, EOMI, Hearing Intact, Nares Patent, Normal Nasal Septum, Pupils Equal, Pupils Reactive Neck: Supple, Trachea Midline, +2 Carotid Pulse wo Bruit Lungs: Decreased Breath Sounds, Crackles, Rhonchi Cardiovascular: Regular Rate, Regular Rhythm GI/Abdominal Exam: Normal Bowel Sounds, Non-Tender, No Organomegaly, No Distention, No Abnormal Bruit, No Mass (Female) Exam: Deferred Rectal (Female) Exam: Deferred Back Exam: Normal Inspection, Decreased Range of Motion, Other (kyphosis) Extremities: Normal Inspection, Normal Range of Motion, Non-Tender, No Pedal Edema, Normal Capillary Refill Peripheral Pulses: 1+: Posterior Tibial (L), Posterior Tibial (R), Dorsalis Pedis (L), Dorsalis Pedis (R) Skin: Warm, Dry, Intact Neuro Extensive - Mental Status: Normal Cognition, Memory Intact Neuro Extensive - Motor, Sensory, Reflexes: CN II-XII Intact (very limited due to weakness ), Abnormal Gait, Tremor Psychiatric: Alert, Normal Affect, Anxious - Patient Data Lab Results Last 24 hrs: Laboratory Results - last 24 hr 06/03/18 06/03/18 06/03/18 Range/Units 18:00 18:00 18:00 WBC 10.99 H (3.98-10.04) K/mm3 RBC 3.15 L (3.98-5.22) M/mm3 Hgb 9.1 L (11.2-15.7) gm/L Hct 29.6 L (34.1-44.9) % MCV 94.0 (79.4-94.8) fl MCH 28.9 (25.6-32.2) pg MCHC 30.7 L (32.2-35.5) g/dl RDW Std Deviation 56.9 H (36.4-46.3) fL Plt Count 516 H (182-369) K/mm3 MPV 9.0 L (9.4-12.3) fl Neut % (Auto) 81.3 H (34.0-71.1) % Lymph % (Auto) 8.2 L (19.3-51.7) % [place] % (Auto) 8.4 (4.7-12.5) % Eos % (Auto) 1.4 (0.7-5.8) Baso % (Auto) 0.5 (0.1-1.2) % Neut # (Auto) 8.94 H (1.56-6.13) K/mm3 Lymph # (Auto) 0.90 L (1.18-3.74) K/mm3 [place] # (Auto) 0.92 H (0.24-0.36) K/mm3 Eos # (Auto) 0.15 (0.04-0.36) K/mm3 Baso # (Auto) 0.06 (0.01-0.08) K/mm3 Manual Slide Review Abnormal smear PT 11.0 (9.5-12.1) SECONDS INR 1.01 Sodium 133 L (136-145) mEq/L Potassium 4.5 (3.5-5.1) mEq/L Chloride 96 L (98-107) mEq/L Carbon Dioxide 34 H (21-32) mEq/L Anion Gap 7.5 (5-15) BUN 20 H (7-18) mg/dL Creatinine 0.9 (0.55-1.02) mg/dL Est Cr Clr Drug Dosing 34.06 mL/min Estimated GFR (MDRD) 59 (>60) mL/min BUN/Creatinine Ratio 22.2 H (14-18) Glucose 98 (83-115) mg/dL Lactic Acid (0.4-2.0) mmol/L Calcium 9.3 (8.5-10.1) mg/dL Magnesium 1.9 (1.8-2.4) mg/dl Total Bilirubin 0.2 (0.2-1.0) mg/dL AST 24 (15-37) U/L ALT 33 (14-59) U/L Alkaline Phosphatase 92 (46-116) U/L CK-MB (CK-2) < 0.5 (0-3.6) ng/ml Troponin I < 0.017 (0.00-0.056) ng/mL NT-Pro-B Natriuret Pep (0-450) pg/mL Total Protein 7.0 (6.4-8.2) g/dl Albumin 2.4 L (3.4-5.0) g/dl Globulin 4.6 gm/dL Albumin/Globulin Ratio 0.5 L (1-2) 06/03/18 06/03/18 Range/Units 18:00 18:00 WBC (3.98-10.04) K/mm3 RBC (3.98-5.22) M/mm3 Hgb (11.2-15.7) gm/L Hct (34.1-44.9) % MCV (79.4-94.8) fl MCH (25.6-32.2) pg MCHC (32.2-35.5) g/dl RDW Std Deviation (36.4-46.3) fL Plt Count (182-369) K/mm3 MPV (9.4-12.3) fl Neut % (Auto) (34.0-71.1) % Lymph % (Auto) (19.3-51.7) % [place] % (Auto) (4.7-12.5) % Eos % (Auto) (0.7-5.8) Baso % (Auto) (0.1-1.2) % Neut # (Auto) (1.56-6.13) K/mm3 Lymph # (Auto) (1.18-3.74) K/mm3 [place] # (Auto) (0.24-0.36) K/mm3 Eos # (Auto) (0.04-0.36) K/mm3 Baso # (Auto) (0.01-0.08) K/mm3 Manual Slide Review PT (9.5-12.1) SECONDS INR Sodium (136-145) mEq/L Potassium (3.5-5.1) mEq/L Chloride (98-107) mEq/L Carbon Dioxide (21-32) mEq/L Anion Gap (5-15) BUN (7-18) mg/dL Creatinine (0.55-1.02) mg/dL Est Cr Clr Drug Dosing mL/min Estimated GFR (MDRD) (>60) mL/min BUN/Creatinine Ratio (14-18) Glucose (83-115) mg/dL Lactic Acid 0.6 (0.4-2.0) mmol/L Calcium (8.5-10.1) mg/dL Magnesium (1.8-2.4) mg/dl Total Bilirubin (0.2-1.0) mg/dL AST (15-37) U/L ALT (14-59) U/L Alkaline Phosphatase (46-116) U/L CK-MB (CK-2) (0-3.6) ng/ml Troponin I (0.00-0.056) ng/mL NT-Pro-B Natriuret Pep 873 H (0-450) pg/mL Total Protein (6.4-8.2) g/dl Albumin (3.4-5.0) g/dl Globulin gm/dL Albumin/Globulin Ratio (1-2) Result Diagrams: 06/03/18 18:00 06/03/18 18:00 Problem List Initiated/Reviewed/Updated: Yes Orders Last 24hrs: Active Orders 24 hr Category Date Time Status EKG Documentation Completion [RC] STAT Care 06/03/18 17:21 Active Chest 2V [CR] Stat Exams 06/03/18 17:20 Taken PE Chest [Ang Chest] [CT] Stat Exams 06/03/18 18:15 Taken Assessment/Plan Comment:: Assessment/Plan: Acute: End of Care Admission - 2/ End stage Lung Disease - Progressively declining functional status - Hospice/Palliative Consultation - Supportive Care Pulmonary PE - CTA finding within segmental arteries to the left upper lobe and the left lower lobe - Patient is already having hemoptysis - Informed family we will avoid anticoagulation as we may exacerbate her chronic hemoptysis and cause further harm to her lungs (pulmonary hemorrhage)-- > they agreed Chronic: HTN MAC Infection on Azithromycin Interstitial Lung Disease Pulmonary Fibrosis Bronchiectasis Hypothyroidism Essential Tremors Anemia with TREVOR Osteoporosis and Depression Plan: Admit to [facility] Hold all Home Meds Supportive Care RT consult Comfort measure medications She can whatever she wants SW/CM for d/c planning Spiritual care consult DVT/GI PPx: SCDs and H2B D/c pending NH placement Code status: DNR/DNI Her family made aware her overall alf prognosis is poor.
[2018-06-03] MEDS ORDERED: Acetaminophen/HYDROcodone 325-5 MG Tab PO PRN (21:45)
[2018-06-03] MEDS ORDERED: Acetaminophen 325 MG Tab PO PRN (21:45)
[2018-06-03] MEDS ORDERED: LORazepam 2 MG/ML SDV IVPUSH PRN (21:45)
[2018-06-03] MEDS ORDERED: Morphine 2 MG/ML Syringe IVPUSH PRN (21:45)
[2018-06-03] MEDS ORDERED: LORazepam 2 MG/ML SDV IV PRN (21:47)
[2018-06-03] MEDS ORDERED: Ondansetron 4 MG/2 ML SDV IV PRN (21:47)
[2018-06-03] MEDS ORDERED: Promethazine 6.25 MG in Sodium Chloride 0.9% 50 ML IV PRN (21:47)
[2018-06-03] MEDS ORDERED: Albuterol/Ipratropium 3.0-0.5 MG/3 ML Neb Soln NEB PRN (21:47)
[2018-06-03] MEDS: Temazepam 7.5 MG Cap PO PRN (23:03)
--- NOTE | 2018-06-04 08:36 | PCM.PN ---
- General Info Date of Service: 06/04/18 Admission Dx/Problem (Free Text): End of Life Care Functional Status: Reports: Pain Controlled, Tolerating Diet, Incentive Spirometry. Denies: New Symptoms - Review of Systems General: Denies: Fever, Chills HEENT: Reports: No Symptoms Pulmonary: Reports: Shortness of Breath, Cough, Sputum, Hemoptysis Cardiovascular: Denies: Chest Pain, Dyspnea on Exertion, Lightheadedness Gastrointestinal: Reports: Decreased Appetite. Denies: Abdominal Pain, Nausea, Vomiting Genitourinary: Reports: No Symptoms Musculoskeletal: Reports: No Symptoms Skin: Denies: Cyanosis, Mottled, Pallor, Diaphoresis Neurological: Reports: Difficulty Walking, Weakness, Gait Disturbance. Denies: Confusion Psychiatric: Denies: Depression, Anxiety, Agitation, Hallucinations Systems Review Comment:: No significant overnight or acute issues. She rested well overnight and remains comfortable this AM. - Patient Data Vitals - Most Recent: Last Vital Signs Temp 36.8 C 06/04/18 03:31 Pulse 72 06/04/18 03:31 Resp 20 06/04/18 03:31 BP 151/85 H 06/04/18 03:31 Pulse Ox 99 06/04/18 03:31 Weight - Most Recent: 48.807 kg Lab Results Last 24 Hours: Laboratory Results - last 24 hr 06/03/18 06/03/18 06/03/18 Range/Units 18:00 18:00 18:00 WBC 10.99 H (3.98-10.04) K/mm3 RBC 3.15 L (3.98-5.22) M/mm3 Hgb 9.1 L (11.2-15.7) gm/L Hct 29.6 L (34.1-44.9) % MCV 94.0 (79.4-94.8) fl MCH 28.9 (25.6-32.2) pg MCHC 30.7 L (32.2-35.5) g/dl RDW Std Deviation 56.9 H (36.4-46.3) fL Plt Count 516 H (182-369) K/mm3 MPV 9.0 L (9.4-12.3) fl Neut % (Auto) 81.3 H (34.0-71.1) % Lymph % (Auto) 8.2 L (19.3-51.7) % [place] % (Auto) 8.4 (4.7-12.5) % Eos % (Auto) 1.4 (0.7-5.8) Baso % (Auto) 0.5 (0.1-1.2) % Neut # (Auto) 8.94 H (1.56-6.13) K/mm3 Lymph # (Auto) 0.90 L (1.18-3.74) K/mm3 [place] # (Auto) 0.92 H (0.24-0.36) K/mm3 Eos # (Auto) 0.15 (0.04-0.36) K/mm3 Baso # (Auto) 0.06 (0.01-0.08) K/mm3 Manual Slide Review Abnormal smear PT 11.0 (9.5-12.1) SECONDS INR 1.01 Sodium 133 L (136-145) mEq/L Potassium 4.5 (3.5-5.1) mEq/L Chloride 96 L (98-107) mEq/L Carbon Dioxide 34 H (21-32) mEq/L Anion Gap 7.5 (5-15) BUN 20 H (7-18) mg/dL Creatinine 0.9 (0.55-1.02) mg/dL Est Cr Clr Drug Dosing 34.06 mL/min Estimated GFR (MDRD) 59 (>60) mL/min BUN/Creatinine Ratio 22.2 H (14-18) Glucose 98 (83-115) mg/dL Lactic Acid (0.4-2.0) mmol/L Calcium 9.3 (8.5-10.1) mg/dL Magnesium 1.9 (1.8-2.4) mg/dl Total Bilirubin 0.2 (0.2-1.0) mg/dL AST 24 (15-37) U/L ALT 33 (14-59) U/L Alkaline Phosphatase 92 (46-116) U/L CK-MB (CK-2) < 0.5 (0-3.6) ng/ml Troponin I < 0.017 (0.00-0.056) ng/mL NT-Pro-B Natriuret Pep (0-450) pg/mL Total Protein 7.0 (6.4-8.2) g/dl Albumin 2.4 L (3.4-5.0) g/dl Globulin 4.6 gm/dL Albumin/Globulin Ratio 0.5 L (1-2) MRSA (PCR) 06/03/18 06/03/18 06/03/18 Range/Units 18:00 18:00 23:24 WBC (3.98-10.04) K/mm3 RBC (3.98-5.22) M/mm3 Hgb (11.2-15.7) gm/L Hct (34.1-44.9) % MCV (79.4-94.8) fl MCH (25.6-32.2) pg MCHC (32.2-35.5) g/dl RDW Std Deviation (36.4-46.3) fL Plt Count (182-369) K/mm3 MPV (9.4-12.3) fl Neut % (Auto) (34.0-71.1) % Lymph % (Auto) (19.3-51.7) % [place] % (Auto) (4.7-12.5) % Eos % (Auto) (0.7-5.8) Baso % (Auto) (0.1-1.2) % Neut # (Auto) (1.56-6.13) K/mm3 Lymph # (Auto) (1.18-3.74) K/mm3 [place] # (Auto) (0.24-0.36) K/mm3 Eos # (Auto) (0.04-0.36) K/mm3 Baso # (Auto) (0.01-0.08) K/mm3 Manual Slide Review PT (9.5-12.1) SECONDS INR Sodium (136-145) mEq/L Potassium (3.5-5.1) mEq/L Chloride (98-107) mEq/L Carbon Dioxide (21-32) mEq/L Anion Gap (5-15) BUN (7-18) mg/dL Creatinine (0.55-1.02) mg/dL Est Cr Clr Drug Dosing mL/min Estimated GFR (MDRD) (>60) mL/min BUN/Creatinine Ratio (14-18) Glucose (83-115) mg/dL Lactic Acid 0.6 (0.4-2.0) mmol/L Calcium (8.5-10.1) mg/dL Magnesium (1.8-2.4) mg/dl Total Bilirubin (0.2-1.0) mg/dL AST (15-37) U/L ALT (14-59) U/L Alkaline Phosphatase (46-116) U/L CK-MB (CK-2) (0-3.6) ng/ml Troponin I (0.00-0.056) ng/mL NT-Pro-B Natriuret Pep 873 H (0-450) pg/mL Total Protein (6.4-8.2) g/dl Albumin (3.4-5.0) g/dl Globulin gm/dL Albumin/Globulin Ratio (1-2) MRSA (PCR) Negative Med Orders - Current: Current Medications Acetaminophen (Tylenol) 650 mg PO Q4H PRN PRN Reason: Pain (Mild 1-3)/fever Hydrocodone Bitart/Acetaminophen ([place] 325-5 Mg) 1 tab PO Q4H PRN PRN Reason: Pain (moderate 4-6) Albuterol/Ipratropium (Duoneb 3.0-0.5 Mg/3 Ml) 3 ml NEB Q4H PRN PRN Reason: Shortness Of Breath/wheezing Promethazine HCl 6.25 mg/ (Sodium Chloride) 50.25 mls @ 100 mls/hr IV Q6H PRN PRN Reason: Nausea/Vomiting Lorazepam (Ativan) 2 mg IVPUSH Q4H PRN PRN Reason: Seizures Lorazepam (Ativan) 0.25 mg IV Q6H PRN PRN Reason: Anxiety Morphine Sulfate (Morphine) 0.25 mg IVPUSH Q2H PRN PRN Reason: Other Stop: 06/08/18 21:46 Ondansetron HCl (Zofran) 4 mg IV Q6H PRN PRN Reason: Nausea/Vomiting Temazepam (Restoril) 7.5 mg PO BEDTIME PRN PRN Reason: Sleep Last Admin: 06/03/18 23:03 Dose: 7.5 mg Discontinued Medications Sodium Chloride (Normal Saline) 1,000 mls @ 999 mls/hr IV ONETIME ONE Stop: 06/03/18 18:21 Last Admin: 06/03/18 18:00 Dose: 999 mls/hr Sodium Chloride (Normal Saline) 100 mls @ 4 mls/sec IV ONETIME ONE Stop: 06/03/18 18:44 Last Admin: 06/03/18 20:16 Dose: 4 mls/sec Iopamidol (Isovue-370 (76%)) 100 ml IVPUSH ONETIME ONE Stop: 06/03/18 18:44 Last Admin: 06/03/18 20:16 Dose: 100 ml - Exam Quality Assessment: Supplemental Oxygen General: Alert, Cooperative, No Acute Distress HEENT: Pupils Equal, Pupils Reactive, Mucous Membr. Moist/Speed Neck: Supple, Trachea Midline Lungs: Normal Respiratory Effort, Decreased Breath Sounds, Crackles, Rales, Rhonchi Cardiovascular: Regular Rate, Regular Rhythm GI/Abdominal Exam: Normal Bowel Sounds, Soft, Non-Tender, No Organomegaly, No Distention, No Abnormal Bruit (Female) Exam: Deferred Back Exam: Normal Inspection, Decreased Range of Motion Extremities: Normal Inspection, Normal Range of Motion, Non-Tender, No Pedal Edema, Normal Capillary Refill Peripheral Pulses: 1+: Dorsalis Pedis (L), Dorsalis Pedis (R) Skin: Warm, Dry, Intact Neurological: No New Focal Deficit Psy/Mental Status: Alert, Normal Mood. No: Normal Affect, Agitated - Problem List Review Problem List Initiated/Reviewed/Updated: Yes - My Orders Last 24 Hours: My Active Orders 06/03/18 21:45 Intake and Output [RC] 04,16 Oxygen Therapy [RC] PRN Pulse Oximetry [RC] PRN VTE/DVT Education [RC] DAILY Vital Signs [RC] Q4HR Acetaminophen [Tylenol] 650 mg PO Q4H PRN Acetaminophen/HYDROcodone [[place] 325-5 MG] 1 tab PO Q4H PRN LORazepam [Ativan] 2 mg IVPUSH Q4H PRN Morphine 0.25 mg IVPUSH Q2H PRN Resuscitation Status Routine 06/03/18 21:46 Sequential Compression Device [OM.PC] Per Unit Routine 06/03/18 21:47 Consult to Case Management/Inside Sales Account Representative [CONS] Routine Consult to Spiritual Care [CONS] Routine Respiratory Care Assess and Treatment [CONS] Routine Albuterol/Ipratropium [DuoNeb 3.0-0.5 MG/3 ML] 3 ml NEB Q4H PRN LORazepam [Ativan] 0.25 mg IV Q6H PRN Ondansetron [Zofran] 4 mg IV Q6H PRN Promethazine [Phenergan] 6.25 mg Sodium Chloride 0.9% [Normal Saline] 50 ml IV Q6H 06/03/18 21:48 RT Aerosol Therapy [RC] ASDIRECTED 06/03/18 21:49 Consult to End of Life Care [Consult to Palliative Care] [CONS] Routine Consult to Hospice [CONS] Routine 06/03/18 22:45 Temazepam [Restoril] 7.5 mg PO BEDTIME PRN 06/03/18 Dinner Regular Diet [DIET] - Plan Plan:: Assessment/Plan: Acute: End of Care Admission - 10/03 End Stage Lung Disease - Progressively declining functional status - Hospice/Palliative Consultation - Supportive Care Pulmonary PE - CTA finding within segmental arteries to the left upper lobe and the left lower lobe - Patient is already having hemoptysis - Informed family we will avoid anticoagulation as we may exacerbate her chronic hemoptysis and cause further harm to her lungs (pulmonary hemorrhage)-- > they agreed Chronic: HTN MAC Infection on Azithromycin Interstitial Lung Disease Pulmonary Fibrosis Bronchiectasis Hypothyroidism Essential Tremors Anemia with TREVOR Osteoporosis and Depression Plan: She remains comfortable Supportive Care and Comfort Measures SW/CM for d/c planning Spiritual care consult DVT/GI PPx: SCDs and H2B Discharge to [facility] Code status: Comfort measures pending placement
[2018-06-04 16:34] VITALS: BP 136/100
[2018-06-04] MEDS ORDERED: OLOPATADINE OPTH EYEBOTH PRN (16:50)
[2018-06-04] MEDS ORDERED: LIDOCAINE TOP PRN (18:07)
[2018-06-04] MEDS ORDERED: Hydrocortisone 1% Crm 30 GM Tube TOP PRN (18:07)
[2018-06-04] MEDS: Hypromellose 0.5% Ophth Soln 15 ML Bottle EYEBOTH SCH ×2 (18:12→20:27)
[2018-06-04] MEDS: Propranolol 40 MG Tab PO SCH (20:26)
[2018-06-04] MEDS: guaiFENesin 600 MG Tab.ER PO SCH (20:27)
[2018-06-04] MEDS: Temazepam 7.5 MG Cap PO PRN (20:27)
[2018-06-04] MEDS ORDERED: Primidone 250 MG Tab PO SCH (21:00)
[2018-06-04] MEDS ORDERED: Primidone 50 MG Tab PO SCH (21:00)
--- NOTE | 2018-06-05 08:46 | PCM.DCSUM1 ---
Discharge Summary - Hospital Course Brief History: This is an 87 yo elderly white female with past medical hx/o HTN , Chronic MAC Infection, Interstitial Lung Disease, Pulmonary Fibrosis, Bronchiectasis, Hypothyroidism, ET, Anemia with TREVOR, Osteoporosis, and Depression who comes in evaluation of worsening respiratory distress. She was here for similar complaints about 3 weeks ago. Her initial work up in ED shows a CBC remarkable for WBC of 10.99, RBC of 3.15, Hgb of 9.1, Hct of 29.6, MCHC of 30.7, RDW of 56.9, Platelet count of 516, MVP of 9.0, Neutrophils of 81.3%, Lymphocytes of 8.2%, Neutrophil count of 8.94, Lymphocyte count of 0.90 and Monocyte count of 0.92. Her chemistry is significant for sodium of 133, Cl of 96 , CO2 of 34, BUN of 20, ProBNP of 873, and Albumin of 2.4. Her Chest CTA report reads large cavitating focus of parenchymal consolidation/mass in the right lung alone the posterior right middle lobe and right lower lobe with large cystic spaces within the infiltrate. Largest cavity located posteriorly measures 6.7 x 4.1 cm contained sent air-fluid level. Air bronchograms seen within the infiltrate and or mass. Multiple smaller irregular parenchymal opacities several of which are spiculated and not Related located in both right and left lungs. Metastatic disease not excluded. Extensive cystic and saccular bronchiectasis demonstrated bilaterally. Pulmonary emboli demonstrated with the segmental arteries the left lower lobe and the left lower lobe. No large central pulmonary emboli demonstrated. Patient's family is known well to me. We discussed care plan at this point and offered them end of life care due to end stage lung disease. Patient's family agreed. She is DNR/DNI. Diagnosis: Stroke: No Modified Devendra Scale: No Symptoms at All Modified Luce Scale Score: 0 - Discharge Data Discharge Date: 06/05/18 Discharge Disposition: DC/Tfer to SNF 03 Condition: Good - Discharge Diagnosis/Problem(s) (1) End of life care SNOMED Code(s): 547710937, 909412800 ICD Code: Z51.5 - ENCOUNTER FOR PALLIATIVE CARE Status: Acute Current Visit: Yes (2) PE (pulmonary thromboembolism) SNOMED Code(s): 035051820 ICD Code: I26.99 - OTHER PULMONARY EMBOLISM WITHOUT ACUTE COR PULMONALE Status: Acute Current Visit: Yes (3) Respiratory distress SNOMED Code(s): 841988794 ICD Code: R06.03 - ACUTE RESPIRATORY DISTRESS Status: Acute Current Visit : Yes (4) Pulmonary Mycobacterium avium complex (MAC) infection SNOMED Code(s): 526780242 ICD Code: A31.0 - PULMONARY MYCOBACTERIAL INFECTION Status: Chronic Current Visit: Yes - Patient Summary/Data Operative Procedure(s) Performed: None Complications: None Consults: Consultations 06/03/18 21:47 Consult to Case Management/Department Sales Manager [CONS] Routine Consult to Spiritual Care [CONS] Routine Respiratory Care Assess and Treatment [CONS] Routine 06/03/18 21:49 Consult to End of Life Care [Consult to Palliative Care] [CONS] Routine Consult to Hospice [CONS] Routine Labs Pending at D/C: None Recommended Follow-up Testing/Procedures: None Planned Operative Procedure(s) after DC: None - Patient Instructions Diet: Usual Diet as Tolerated Activity: As Tolerated Driving: Do Not Drive Showering/Bathing: May Shower Notify Provider of: Fever, Increased Pain, Swelling and Redness, Drainage, Nausea and/or Vomiting Other/Special Instructions: - Follow up with your PCP after discharge - Discharge Plan *PRESCRIPTION DRUG MONITORING PROGRAM REVIEWED*: Not Applicable *COPY OF PRESCRIPTION DRUG MONITORING REPORT IN PATIENT CARLOS: Not Applicable Home Medications: Home Meds Acetaminophen [Tylenol] 325 mg PO Q6HR PRN 11/17/17 [History] Albuterol Sulfate 2.5 mg IH TID 11/17/17 [History] Calcium Carbonate/Vitamin D3 [Calcium 600 + Vit D Tablet] 1 each PO BID [History] Denosumab [Prolia] 60 mg SUBCUT Q180D 11/17/17 [History] Ferrous Sulfate 325 mg PO DAILY 11/17/17 [History] Fish Oil/[place]-3 Fatty Acids [Fish Oil 1,000 MG] 1 each PO DAILY 11/17/17 [ History] Hydrocortisone [Preparation H] 1 applic TP TID PRN 11/17/17 [History] I-Darnell With Lutein. 1 cap PO DAILY 11/17/17 [History] L.acidop,Vasquez,Lac,Rha/B.lac,Deon [Advanced Probiotic Capsule] 1 cap PO DAILY 11/17 [History] Levothyroxine [Synthroid] 88 mcg PO DAILY 11/17/17 [History] Lidocaine [Anecream] 1 applic TP Q6H PRN 11/17/17 [History] Mineral Oil/Petrolatum,White [Soothe Night Time Lub Eye Oint] 1 applic EYEBOTH BEDTIME PRN 11/17/17 [History] Multivitamin with Minerals [Multivitamins with Minerals] 1 each PO DAILY [History] Olopatadine [Patanol 0.1% Ophth Soln] 1 drop EYEBOTH BID PRN 11/17/17 [History] Polyethylene Glycol 3350 [MiraLAX] 17 gm PO DAILY 11/17/17 [History] Primidone 50 mg PO BEDTIME 11/17/17 [History] Primidone 250 mg PO BEDTIME 11/17/17 [History] Propylene Glycol/Peg 400 [Systane 0.3-0.4% Eye Drops] 1 drop EYEBOTH TID [History] Sertraline [Zoloft] 25 mg PO DAILY 11/17/17 [History] amLODIPine Besylate [Norvasc] 2.5 mg PO DAILY 11/17/17 [History] guaiFENesin [Mucinex] 600 mg PO BID 11/17/17 [History] Azithromycin [Zithromax] 250 mg PO DAILY 05/13/18 [History] Propranolol [Inderal] 40 mg PO BID #30 tablet 05/18/18 [Rx] Patient Handouts: Chronic Respiratory Failure, Pulmonary Embolism, Mycobacterium Avium Complex, End-of-Life Care Referrals: Ines Candelaria MD [Primary Care Provider] - - Discharge Summary/Plan Comment DC Time >30 min.: No Discharge Summary/Plan Comment: Discharge to [facility] - General Info Date of Service: 06/05/18 Admission Dx/Problem (Free Text: End of Life Care Functional Status: Reports: Pain Controlled, Tolerating Diet, Ambulating, Urinating, Incentive Spirometry. Denies: New Symptoms - Review of Systems General: Reports: Fatigue, Malaise. Denies: Fever, Chills HEENT: Reports: No Symptoms Pulmonary: Reports: Shortness of Breath, Cough, Sputum, Hemoptysis. Denies: Pleuritic Chest Pain Cardiovascular: Denies: Chest Pain, Palpitations, Dyspnea on Exertion, Orthopnea Gastrointestinal: Reports: Decreased Appetite. Denies: Abdominal Pain, Difficulty Swallowing, Nausea, Vomiting Genitourinary: Reports: No Symptoms Musculoskeletal: Reports: No Symptoms Skin: Denies: Cyanosis, Mottled, Diaphoresis Neurological: Reports: Difficulty Walking, Weakness, Gait Disturbance. Denies: Dizziness Psychiatric: Denies: Depression, Anxiety, Agitation, Suicidal Ideation, Homicidal Ideation Systems Review Comment: No significant overnight or acute issues. She slept okay. She has no complaints. She remains comfortable. - Patient Data Vitals - Most Recent: Last Vital Signs Temp 36.6 C 06/04/18 08:00 Pulse 72 06/04/18 08:00 Resp 20 06/04/18 08:00 BP 136/100 H 06/04/18 08:00 Pulse Ox 100 06/04/18 08:00 Weight - Most Recent: 48.807 kg I&O - Last 24 hours: Intake & Output 06/04/18 06/05/18 06/05/18 22:59 06:59 14:59 Intake Total 250 350 Output Total 500 400 Balance -250 -50 Med Orders - Current: Current Medications Acetaminophen (Tylenol) 650 mg PO Q4H PRN PRN Reason: Pain (Mild 1-3)/fever Hydrocodone Bitart/Acetaminophen ([place] 325-5 Mg) 1 tab PO Q4H PRN PRN Reason: Pain (moderate 4-6) Albuterol/Ipratropium (Duoneb 3.0-0.5 Mg/3 Ml) 3 ml NEB Q4H PRN PRN Reason: Shortness Of Breath/wheezing Artificial Tears (Isopto Tears 0.5% Ophth Soln) 0 ml EYEBOTH TID [facility] Last Admin: 06/04/18 20:27 Dose: 1 drop Guaifenesin (Mucinex) 600 mg PO BID [facility] Last Admin: 06/04/18 20:27 Dose: 600 mg Hydrocortisone (Hydrocortisone 1% Crm) 0 gm TOP TID PRN PRN Reason: Hemorrhoids Promethazine HCl 6.25 mg/ (Sodium Chloride) 50.25 mls @ 100 mls/hr IV Q6H PRN PRN Reason: Nausea/Vomiting Lorazepam (Ativan) 2 mg IVPUSH Q4H PRN PRN Reason: Seizures Lorazepam (Ativan) 0.25 mg IV Q6H PRN PRN Reason: Anxiety Last Admin: 06/04/18 20:27 Dose: 0.25 mg Morphine Sulfate (Morphine) 0.25 mg IVPUSH Q2H PRN PRN Reason: Other Stop: 06/08/18 21:46 Last Admin: 06/04/18 18:14 Dose: 0.25 mg Ondansetron HCl (Zofran) 4 mg IV Q6H PRN PRN Reason: Nausea/Vomiting Olopatadine (Patanol () Opth Solution) 0 each EYEBOTH BID PRN PRN Reason: allergy symptoms Lidocaine [Anecream] 0 each TOP Q6H PRN PRN Reason: unknown Primidone (Mysoline) 250 mg PO BEDTIME [facility] Last Admin: 06/04/18 20:27 Dose: 250 mg Primidone (Mysoline) 50 mg PO BEDTIME [facility] Last Admin: 06/04/18 20:26 Dose: 50 mg Propranolol HCl (Inderal) 40 mg PO BID [facility] Last Admin: 06/04/18 20:26 Dose: 40 mg Temazepam (Restoril) 7.5 mg PO BEDTIME PRN PRN Reason: Sleep Last Admin: 06/04/18 20:27 Dose: 7.5 mg Vit A/Vit C/Vit E/Selen/Cu/Zn/Lutei (Icaps Mv) 1 tab PO DAILY DENITA Discontinued Medications Sodium Chloride (Normal Saline) 1,000 mls @ 999 mls/hr IV ONETIME ONE Stop: 06/03/18 18:21 Last Admin: 06/03/18 18:00 Dose: 999 mls/hr Sodium Chloride (Normal Saline) 100 mls @ 4 mls/sec IV ONETIME ONE Stop: 06/03/18 18:44 Last Admin: 06/03/18 20:16 Dose: 4 mls/sec Iopamidol (Isovue-370 (76%)) 100 ml IVPUSH ONETIME ONE Stop: 06/03/18 18:44 Last Admin: 06/03/18 20:16 Dose: 100 ml - Exam Quality Assessment: Reports: Supplemental Oxygen General: Reports: Alert, Cooperative, No Acute Distress HEENT: Reports: Pupils Equal, Pupils Reactive, EOMI, Mucous Membr. Moist/[place] Lungs: Reports: Decreased Breath Sounds, Rales, Rhonchi, Wheezing Cardiovascular: Reports: Regular Rate, Regular Rhythm GI/Abdominal Exam: Normal Bowel Sounds, Soft, Non-Tender, No Organomegaly, No Distention, No Abnormal Bruit, No Mass, Pelvis Stable (Female) Exam: Deferred Rectal (Female) Exam: Deferred Back Exam: Reports: Normal Inspection, Decreased Range of Motion Extremities: Normal Inspection, Normal Range of Motion, Non-Tender, No Pedal Edema, Normal Capillary Refill Skin: Reports: Warm, Dry, Intact Neurological: Reports: No New Focal Deficit. Denies: Normal Gait Psy/Mental Status: Reports: Alert, Normal Affect, Normal Mood
[2018-06-05] MEDS ORDERED: Multivitamins with Minerals/Folic Acid/Lutein/Zeaxanth Tab PO SCH (09:00)
--- NOTE | 2018-06-05 09:34 | CR ---
Chest: Two views of the chest were obtained. Comparison: Prior chest x-ray of 05/17/18. Diffuse interstitial change is seen as well as other parenchymal densities within the right chest. Findings are felt to be fairly stable from prior chest x-ray. Bony structures are osteopenic. Heart size is not enlarged. Impression: 1. No definite change from previous chest x-ray. Diagnostic code #3
--- NOTE | 2018-06-05 09:34 | CT ---
CT chest Technique: Multiple axial sections were obtained from above the lung apices inferiorly through the lung bases. Intravenous contrast was utilized. Study has been performed as a CT pulmonary angiogram protocol. Comparison: Prior chest CT study of 11/18/17. Findings: Pulmonary arteries are well-opacified. Several filling defects are seen within subsegmental branches within the left upper lung compatible with pulmonary emboli. No larger pulmonary emboli is seen within the segmental or main pulmonary arteries. Aorta shows atherosclerotic calcification without aneurysm. Mediastinum and hilar regions show no adenopathy. Coronary artery calcification is seen. Heart is slightly enlarged. Small portion of visualized upper abdominal structures show partially visualized calcified gallbladder wall with gallstones. Air cavity is noted within the right lung base showing small air-fluid level. Consolidation is noted within portions of the right upper lung. Small thick walled air cavity is seen within the left upper chest. Areas of bronchiectasis are noted. Coarse markings seen within the right lung base. Irregular pulmonary parenchymal nodules are seen within both lungs, uncertain if these are due to areas of scarring, infection or a neoplastic. Impression: 1. Diffusely abnormal lungs with cavities as well as coarse lung markings and irregular nodular densities. Areas of bronchiectasis are also present. Consolidation is noted within the right upper lung. Uncertain how many findings are chronic versus possible right-sided pneumonia versus poorly seen neoplasm. Chest CT has worsened from previous study. 2. Several small subsegmental pulmonary emboli within the left upper chest. 3. Partially visualized calcified gallbladder wall with calcified gallstones Diagnostic code #5 I agree with preliminary report issued by [facility] ([facility] report finalized on 06/03/18, 9:27 PM Central Time)
[2018-06-05] MEDS: Hypromellose 0.5% Ophth Soln 15 ML Bottle EYEBOTH SCH (10:01)
[2018-06-05] MEDS: Propranolol 40 MG Tab PO SCH (10:02)
[2018-06-05] MEDS: guaiFENesin 600 MG Tab.ER PO SCH (10:02)
== END 2018-06-05 12:22 | DRG 176 ==
LOC: JD.ED 16:25 → SUPCPDRO 16:25 → JD.MS 21:30
PROVIDERS: ADMIT Internal Medicine; ATTEND Internal Medicine
DX: I26.99 Other pulmonary embolism without acute cor pulmonale (principal); J84.9 Interstitial pulmonary disease, unspecified; A31.0 Pulmonary mycobacterial infection; H54.7 Unspecified visual loss; R09.02 Hypoxemia; K59.09 Other constipation; M81.0 Age-related osteoporosis without current pathological fracture; G25.0 Essential tremor; F32.9 Major depressive disorder, single episode, unspecified; D64.9 Anemia, unspecified; E03.9 Hypothyroidism, unspecified; I10 Essential (primary) hypertension; J84.10 Pulmonary fibrosis, unspecified; J47.9 Bronchiectasis, uncomplicated; D50.9 Iron deficiency anemia, unspecified; R06.03 Acute respiratory distress; R06.02 Shortness of breath; Z91.048 Other nonmedicinal substance allergy status; Z79.899 Other long term (current) drug therapy; Z87.440 Personal history of urinary (tract) infections; Z87.01 Personal history of pneumonia (recurrent); Z66 Do not resuscitate; Z85.828 Personal history of other malignant neoplasm of skin; Z51.5 Encounter for palliative care
CPT/HCPCS: 36415; 71046; 71046-26; 71275; 71275-26; 80053; 82553; 83605; 83735; 83880; 84484; 85025; 85610; 87641; 93005; 93010; 94760; 96360; 99285; 99285-25; A9270-GY; J2060; J2270; J7030; J7040; Q9967